=== PATIENT | female | born 1935 | race Caucasian/White ===

== ENCOUNTER → 2018-06-19 02:22 | Outpatient (CLI) | payer MEDICARE, MEDICAID, SELFPAY ==
[2018-06-19 11:31] LABS: Abs Immature Grans 0.01 k/cumm (0.0-0.09); HCT 35.3 % (36.0-46.0); HGB 12.3 g/dL (12.0-15.5); Mean Corp. HGB Concentration 34.8 g/dL (32.0-36.0); Mean Corpuscular Hemoglobin 36.9 pg (27.0-33.0); Mean Platelet Volume 11.1 fL (8.0-11.0); Platelet Count 545 x1000/uL (130-400); RBC 3.33 m/cumm (4.00-5.20); White Blood Cell Count 3.84 k/cumm (4.4-10.8)
[2018-06-19 11:45] LABS: ALT 27 U/L (12-78); AST 26 U/L (15-37); Alkaline Phosphatase 87 U/L (46-116); Anion Gap 10.6 mmol/L (3-11); BUN 21 mg/dL (7-18); Bilirubin, Total 0.4 mg/dL (0.2-1.0); CO2 24.4 mmol/L (21.0-32.0); Calcium 8.9 mg/dL (8.5-10.1); Chloride 96 mmol/L (98-107); Glucose 104 mg/dL (70-100); Potassium 4.6 mmol/L (3.5-5.1); Sodium 131 mmol/L (136-145)
[2018-06-19 11:53] LABS: Absolute Lymphocyte Count 1.11 k/cumm (1.2-3.4); Absolute Neutrophil Count 2.23 k/cumm (1.2-6.7)
[2018-06-19 11:54] LABS: Diff Comment Manual Differential; Macrocytosis 3+; Polychromasia Present
== END ==
PROVIDERS: Internal Medicine Hematology & Oncology; PCP Family Medicine; Visit Provider Family Medicine
DX: D47.1 Chronic myeloproliferative disease (principal); D47.3 Essential (hemorrhagic) thrombocythemia
CPT/HCPCS: 36415; 80053; 85025

== ENCOUNTER → 2018-06-26 00:12 | Outpatient (CLI) | payer MEDICARE, MEDICAID, SELFPAY ==
--- NOTE | 2018-06-26 05:44 | MERGEMPI_ITS ---
*[facility]* *[facility]* [address] [place] [address] Myocardial Perfusion Imaging - SPECT Joel protocol Date of study: 06/26/2018 *PATIENT PRESENTATION* Height: 160cm (63in) Blood Pressure: Weight: 69.1kg (152lb) BSA: 1.77m^2 Referring physician: Sherwin Vicente Ordering physician: Ryley Gaona Impressions: Normal perfusion by Tc99m Sestamibi Imaging. Summary: 1. Myocardial perfusion imaging: No myocardial perfusion defects noted. 2. The calculated left ventricular ejection fraction after stress: 67%. No left ventricular regional motion abnormality. 3. Stress: The target heart rate was achieved. Indication: R07.9. History: Patient's presenting symptoms: asymptomatic. REASON FOR VISIT: STRESS TEST RECOMMENDED BY PCP TO FURTHER INVESTIGATE PATIENT REPORTS OF CHEST PAIN AND SHORTNESS OF BREATH. EXERTIONAL DYSPNEA IS PRESENT WITH ANY ACTIVITY. 10/10 CRUSHING CHEST PAIN OCCURS WITH PROLONGED STANDING AND IS RELIEVED WITH REST. PAST MEDICAL HISTORY: CVA/TIA, HYPERTENSION, HYPOTHYROIDISM, AORTIC STENOSIS S/P AVR, MACULAR DEGENERATION, THROMBOCYTOSIS ON CHEMOTHERAPY. FAMILY HISTORY: NONE. SMOKING STATUS: PATIENT REPORTS OCCASIONAL CIGARETTE USE WITH DRINKING, QUIT 40 YEARS AGO. EXERCISE ROUTINE: NONE. Risk factors: Hypertension. Dyslipidemia. Cholesterol: 237mg/dl. HDL: 77mg/dl. LDL: 120mg/dl. Triglycerides: 130mg/dl. Cerebral vascular disease. ALLERGIES: IODINATED CONTRAST - ORAL AND IV DYE. MEDICATIONS: AMLODIPINE BESYLATE 2.5MG, DAILY. ASPIRIN 81MG, DAILY. CHOLECALCIFEROL 1000UNITS, DAILY CYANOCOBALAMIN 500MG, DAILY. HYDROXYUREA 1000MG, DAILY. LEVOTHYROXINE 125MCG, DAILY. LISINOPRIL 10MG, DAILY. MECLIZINE HCL 12.5MG, PRN. Imaging Technique: Protocol: Joel protocol. Acquisition: Gated SPECT; 1 day - rest/stress. The patient was imaged in the supine position. Attenuation correction used. Isotope administration: - Rest. Tc[99m]-sestamibi. Dose: 10.3mCi. Injection time: 08:10 AM. Injection to stress time: 00:45. - Stress. Tc[99m]-sestamibi. Dose: 33mCi. Injection time: 09:45 AM. 1-2 min before end of exercise Baseline ECG: SINUS RHYTHM. INVERTED T WAVES PRESENT AT BASELINE IN LEADS AVL, V1, AND V2. HEART RATE 66 BPM. Stress protocol: + +---+ + + !Stage !HR !BP (mmHg) !Symptoms ! + +---+ + + !Baseline supine !66 !144/78 ! ! ! ! !(100) ! ! + +---+ + + !Baseline standing !71 !154/72 (99)! ! + +---+ + + !Stage I; 1.7mph, 10degrees;!154!182/78 !Moderate dyspnea, ! !3 min ! !(113) !dizziness ! + +---+ + + !Peak stress !154! ! ! + +---+ + + !Immediate post stress !141!180/62 ! ! ! ! !(101) ! ! + +---+ + + !Recovery; 3 min !92 !180/74 !Resolved ! ! ! !(109) ! ! + +---+ + + !Recovery; 6 min !77 !164/68 ! ! ! ! !(100) ! ! + +---+ + + * Stress results: Maximal heart rate during stress was 154bpm (111% of maximal predicted heart rate). The maximal predicted heart rate was 139bpm. The target heart rate was achieved. The rate-pressure product for the peak heart rate and blood pressure was 64721lt Hg/min. Stress ECG: TREADMILL PORTION OF EXERCISE STRESS TEST ENDED IN 2MIN 51SEC DUE TO PATIENT REPORTS OF SHORTNESS OF BREATH AND DIZZINESS. APPROPRIATE HEART RATE AND BLOOD PRESSURE RESPONSE TO EXERCISE. MAX HEART RATE 154 BPM, 110% OF TARGET. APPROXIMATE METS ACHIEVED 4.64. NO ANGINA REPORTED. OCCASIONAL PVC NOTED. HORIZONAL ST SEGMENT DEPRESSION NOTED IN LEADS V3, V4, AND V5. ST SEGMENT CHANGES RETURNED TO BASELINE BY MINUTE 3 OF RECOVERY PERIOD. MILDLY DIMINISHED FUNCTIONAL CAPACITY. Myocardial perfusion: Imaging information: gated. No myocardial perfusion defects noted. Ventricular Function (Wall Motion): The calculated left ventricular ejection fraction after stress: 67%. No left ventricular regional motion abnormality. Study data: Krishna Miles MD supervised and was readily available during the procedure. This study was interpreted by [facility]. Study status: Routine. Consent: The risks, benefits, and alternatives to the procedure were explained to the patient and informed consent was obtained. Procedure: Initial setup. A baseline ECG was recorded. Surface ECG leads and manual cuff blood pressure measurements were monitored. Heart sounds: Normal. Lung sounds: Normal. Treadmill exercise testing was performed using the Joel protocol. Study completion: All catheters inserted during the procedure were removed. The patient tolerated the procedure well and was discharged from the lab. Discharge: The patient left the laboratory in stable condition. Birthdate: Patient birthdate: 1935. Sex: Gender: female. Study date: Study date: 06/26/2018. Study time: 05:44 AM. Electronically signed by Krishna Miles MD 06/26/2018 16:24
[2018-06-26 09:24] LABS: TSH 0.23 uIU/mL (0.358-3.74)
== END ==
PROVIDERS: PCP Family Medicine; Visit Provider Family Medicine
DX: R07.9 Chest pain, unspecified (principal); R06.02 Shortness of breath; R06.09 Other forms of dyspnea; E03.9 Hypothyroidism, unspecified; I10 Essential (primary) hypertension; E78.5 Hyperlipidemia, unspecified; Z95.2 Presence of prosthetic heart valve; I35.0 Nonrheumatic aortic (valve) stenosis
CPT/HCPCS: 78452; 93017; 36415; 93016; 93018; 84443

== ENCOUNTER 2018-07-11 02:00 | Outpatient (CLI) | payer MEDICARE, MEDICAID, SELFPAY ==
[2018-07-11 08:11] LABS: Absolute Basophil Count 0.05 k/cumm (0.0-0.2); Absolute Eosinophil Count 0.05 k/cumm (0.0-0.7); Absolute Lymphocyte Count 1.09 k/cumm (1.2-3.4); Absolute Monocyte Count 0.44 k/cumm (0.11-0.7); Absolute Neutrophil Count 2.42 k/cumm (1.2-6.7); Basophils % 1.2; Eosinophils % 1.2; HCT 33.4 % (36.0-46.0); HGB 11.4 g/dL (12.0-15.5); Lymphocytes % 26.9; Mean Corp. HGB Concentration 34.1 g/dL (32.0-36.0); Mean Corpuscular Hemoglobin 37.5 pg (27.0-33.0); Mean Corpuscular Volume 109.9 fL (80-95); Mean Platelet Volume 10.5 fL (8.0-11.0); Monocytes % 10.9; Neutrophils % 59.8; Platelet Count 619 x1000/uL (130-400); RBC 3.04 m/cumm (4.00-5.20); RBC Distribution Width 14.1 % (11.7-14.6); White Blood Cell Count 4.05 k/cumm (4.4-10.8)
[2018-07-11 08:27] LABS: ALT 23 U/L (12-78); AST 22 U/L (15-37); Albumin 3.8 g/dL (3.4-5.0); Alkaline Phosphatase 91 U/L (46-116); Anion Gap 7.8 mmol/L (3-11); BUN 21 mg/dL (7-18); Bilirubin, Total 0.3 mg/dL (0.2-1.0); CO2 27.2 mmol/L (21.0-32.0); CREATININE 0.77 mg/dL (0.55-1.02); Calcium 8.8 mg/dL (8.5-10.1); Chloride 96 mmol/L (98-107); Glucose 96 mg/dL (70-100); Potassium 4.2 mmol/L (3.5-5.1); Sodium 131 mmol/L (136-145)
== END 2018-07-11 02:20 ==
PROVIDERS: PCP Family Medicine; Visit Provider Family Medicine
DX: D47.1 Chronic myeloproliferative disease (principal); D47.3 Essential (hemorrhagic) thrombocythemia
CPT/HCPCS: 36415; 80053; 85025

== ENCOUNTER 2018-12-12 09:34 | Outpatient (CLI) | payer MEDICARE, MEDICAID, SELFPAY ==
[2018-12-12 09:51] LABS: Abs Immature Grans 0.01 k/cumm (0.0-0.09); Absolute Basophil Count 0.06 k/cumm (0.0-0.2); Absolute Eosinophil Count 0.11 k/cumm (0.0-0.7); Absolute Lymphocyte Count 1.08 k/cumm (1.2-3.4); Absolute Monocyte Count 0.45 k/cumm (0.11-0.7); Absolute Neutrophil Count 2.35 k/cumm (1.2-6.7); Basophils % 1.5; Eosinophils % 2.7; HCT 34.2 % (36.0-46.0); HGB 11.7 g/dL (12.0-15.5); Immature Grans % 0.2; Lymphocytes % 26.6; Mean Corp. HGB Concentration 34.2 g/dL (32.0-36.0); Mean Corpuscular Hemoglobin 37.5 pg (27.0-33.0); Mean Corpuscular Volume 109.6 fL (80-95); Monocytes % 11.1; Neutrophils % 57.9; Platelet Count 597 x1000/uL (130-400); RBC 3.12 m/cumm (4.00-5.20); RBC Distribution Width 13.6 % (11.7-14.6); White Blood Cell Count 4.06 k/cumm (4.4-10.8)
[2018-12-12 10:04] LABS: ALT 25 U/L (12-78); AST 24 U/L (15-37); Albumin 3.7 g/dL (3.4-5.0); Alkaline Phosphatase 101 U/L (46-116); Anion Gap 9.9 mmol/L (3-11); BUN 11 mg/dL (7-18); Bilirubin, Total 0.4 mg/dL (0.2-1.0); CO2 26.1 mmol/L (21.0-32.0); CREATININE 0.79 mg/dL (0.55-1.02); Calcium 8.7 mg/dL (8.5-10.1); Chloride 94 mmol/L (98-107); Glucose 97 mg/dL (70-100); Potassium 4.3 mmol/L (3.5-5.1); Sodium 130 mmol/L (136-145); Total Protein 6.9 g/dL (6.4-8.2)
== END 2018-12-12 09:54 ==
PROVIDERS: PCP Family Medicine; Visit Provider Nurse Practitioner Family
DX: D47.3 Essential (hemorrhagic) thrombocythemia (principal)
CPT/HCPCS: 36415; 80053; 85025

== ENCOUNTER 2019-05-15 09:15 | Outpatient (CLI) | payer MEDICARE, MEDICAID, SELFPAY ==
[2019-05-15 09:53] LABS: Abs Immature Grans 0.01 k/cumm (0.0-0.09); Absolute Basophil Count 0.07 k/cumm (0.0-0.2); Absolute Eosinophil Count 0.07 k/cumm (0.0-0.7); Absolute Monocyte Count 0.47 k/cumm (0.11-0.7); Absolute Neutrophil Count 2.85 k/cumm (1.2-6.7); Basophils % 1.6; Eosinophils % 1.6; HCT 33.8 % (36.0-46.0); HGB 11.9 g/dL (12.0-15.5); Immature Grans % 0.2; Lymphocytes % 22.4; Mean Corp. HGB Concentration 35.2 g/dL (32.0-36.0); Mean Corpuscular Hemoglobin 38.5 pg (27.0-33.0); Mean Corpuscular Volume 109.4 fL (80-95); Mean Platelet Volume 10.8 fL (8.0-11.0); Monocytes % 10.5; Neutrophils % 63.7; RBC 3.09 m/cumm (4.00-5.20); RBC Distribution Width 13.6 % (11.7-14.6); White Blood Cell Count 4.47 k/cumm (4.4-10.8)
[2019-05-15 10:02] LABS: ALT 25 U/L (12-78); AST 21 U/L (15-37); Alkaline Phosphatase 85 U/L (46-116); Anion Gap 10.7 mmol/L (3-11); BUN 13 mg/dL (7-18); Bilirubin, Total 0.4 mg/dL (0.2-1.0); CO2 25.3 mmol/L (21.0-32.0); CREATININE 0.68 mg/dL (0.55-1.02); Calcium 9.3 mg/dL (8.5-10.1); Chloride 96 mmol/L (98-107); Glucose 110 mg/dL (70-100); Potassium 4.3 mmol/L (3.5-5.1); Sodium 132 mmol/L (136-145); Total Protein 6.8 g/dL (6.4-8.2)
[2019-05-15 10:10] LABS: Diff Comment RBC Morph Reviewed; Macrocytosis 3+; Platelet Count 710 x1000/uL (130-400)
== END 2019-05-15 09:35 ==
PROVIDERS: PCP Family Medicine; Visit Provider Nurse Practitioner Family
DX: D47.3 Essential (hemorrhagic) thrombocythemia (principal); D47.1 Chronic myeloproliferative disease
CPT/HCPCS: 36415; 80053; 85025

== ENCOUNTER 2019-07-26 14:53 | Outpatient (CLI) | payer MEDICARE, MEDICAID, SELFPAY ==
[2019-07-26 15:25] LABS: Absolute Basophil Count 0.04 k/cumm (0.0-0.2); Absolute Eosinophil Count 0.03 k/cumm (0.0-0.7); Absolute Lymphocyte Count 0.93 k/cumm (1.2-3.4); Absolute Monocyte Count 0.47 k/cumm (0.11-0.7); Absolute Neutrophil Count 2.58 k/cumm (1.2-6.7); Eosinophils % 0.7; HCT 32.5 % (36.0-46.0); HGB 11.4 g/dL (12.0-15.5); Mean Corp. HGB Concentration 35.1 g/dL (32.0-36.0); Mean Corpuscular Hemoglobin 39.2 pg (27.0-33.0); Mean Corpuscular Volume 111.7 fL (80-95); Mean Platelet Volume 10.4 fL (8.0-11.0); Monocytes % 11.6; Neutrophils % 63.7; Platelet Count 670 x1000/uL (130-400); RBC 2.91 m/cumm (4.00-5.20); RBC Distribution Width 14.4 % (11.7-14.6); White Blood Cell Count 4.05 k/cumm (4.4-10.8)
[2019-07-26 15:45] LABS: Diff Comment RBC Morph Reviewed; Macrocytosis 3+
== END 2019-07-26 15:13 ==
PROVIDERS: PCP Family Medicine; Visit Provider Internal Medicine Hematology & Oncology
DX: D47.3 Essential (hemorrhagic) thrombocythemia (principal); D47.1 Chronic myeloproliferative disease
CPT/HCPCS: 85025

== ENCOUNTER 2019-08-15 09:51 | Outpatient (CLI) | payer MEDICARE, MEDICAID, SELFPAY ==
[2019-08-15 11:00] LABS: Abs Immature Grans 0.01 k/cumm (0.0-0.09); Absolute Basophil Count 0.02 k/cumm (0.0-0.2); Absolute Eosinophil Count 0.04 k/cumm (0.0-0.7); Absolute Lymphocyte Count 0.72 k/cumm (1.2-3.4); Absolute Monocyte Count 0.38 k/cumm (0.11-0.7); Absolute Neutrophil Count 2.26 k/cumm (1.2-6.7); Basophils % 0.6; Eosinophils % 1.2; HCT 30.9 % (36.0-46.0); HGB 10.9 g/dL (12.0-15.5); Immature Grans % 0.3; Mean Corp. HGB Concentration 35.3 g/dL (32.0-36.0); Mean Corpuscular Hemoglobin 40.1 pg (27.0-33.0); Mean Corpuscular Volume 113.6 fL (80-95); Mean Platelet Volume 10.2 fL (8.0-11.0); Monocytes % 11.1; Neutrophils % 65.8; RBC 2.72 m/cumm (4.00-5.20); RBC Distribution Width 13.7 % (11.7-14.6); White Blood Cell Count 3.43 k/cumm (4.4-10.8)
[2019-08-15 11:10] LABS: ALT 22 U/L (14-59); AST 25 U/L (15-37); Alkaline Phosphatase 86 U/L (46-116); Anion Gap 9.5 mmol/L (3-11); BUN 8 mg/dL (7-18); Bilirubin, Total 0.4 mg/dL (0.2-1.0); CO2 25.5 mmol/L (21.0-32.0); CREATININE 0.83 mg/dL (0.55-1.02); Chloride 93 mmol/L (98-107); Glucose 85 mg/dL (70-100); Potassium 4.2 mmol/L (3.5-5.1); Sodium 128 mmol/L (136-145); Total Protein 7.3 g/dL (6.4-8.2)
[2019-08-15 11:12] LABS: Platelet Count 657 x1000/uL (130-400)
[2019-08-15 11:13] LABS: Diff Comment Diff Reviewed; Macrocytosis 3+; Poikilocytes 1+
== END 2019-08-15 10:11 ==
PROVIDERS: Nurse Practitioner Family; PCP Family Medicine; Visit Provider Nurse Practitioner Adult Health
DX: D47.3 Essential (hemorrhagic) thrombocythemia (principal)
CPT/HCPCS: 36415; 80053; 85025

== ENCOUNTER 2019-08-16 12:38 | Emergency (ER) | payer MEDICARE, MEDICAID, SELFPAY ==
[2019-08-16] VITALS (21 sets, daily range): BP systolic 147–189; BP diastolic 63–88; PULSE 65–88; RESP 11–22; TEMP 36.9; O2SAT 95–100
--- NOTE | 2019-08-16 12:50 | DI.CT_ITS ---
EXAM: CT HEAD - STROKE PROTOCOL CLINICAL HISTORY: near syncope, headache, L face numb TECHNIQUE: Noncontrast COMPARISON: HEAD WITHOUT CONTRAST from 08/19/2017 FINDINGS: No intracranial hemorrhage, mass or acute infarct is seen. Ventricles are unchanged in size. There is mild atrophy and white matter changes of small vessel disease.. There is no evidence of skull fr acture. The sinuses and mastoid air cells appear clear. IMPRESSION: Atrophy and white matter changes. No acute abnormality.
--- NOTE | 2019-08-16 12:50 | DI.RAD_ITS ---
EXAM: XR CHEST 2V PA LATERAL INDICATION: near syncope. COMPARISON: CHEST 2 VIEWS PA,LAT from 01/11/2018 TECHNIQUE: 2D digital imaging was performed. FINDINGS: Heart size is normal. Sternal wires are again noted. Questionable increased densities at both lung bases could represent atelectasis versus infiltrates. An aortic valve prosthesis seen. IMPRESSION: Question basilar infiltrates versus atelectasis.
--- NOTE | 2019-08-16 12:55 | ED.GENADUL_ITS ---
Discharge Plan Disposition Patient Disposition: HOME Discharge Details Chief Complaint: CVA/TIA Clinical Impression: Near syncope, Dizziness, H/O thrombocytosis, Chronic hyponatremia Primary Care Provider: Ryley Gaona ED Provider: Torsten Modi Home Meds and New Rx's Prescriptions: No Action benzonatate 100 mg capsule 100 mg PO TID PRN (Reason: cough) Qty: 30 RF: 3 cyanocobalamin (vitamin B-12) [Vitamin B-12] 500 MCG tablet 500 mcg PO DAILY RF: 0 cholecalciferol (vitamin D3) 1,000 UNIT tablet 1,000 unit PO DAILY RF: 0 I-Caps 1 EACH capsule 1 ea PO DAILY RF: 0 triamcinolone acetonide 15 GM cream 0 Topical BID Qty: 30 RF: 3 meclizine 12.5 MG tablet 1 - 2 tab PO Q6H PRN Qty: 50 RF: 1 amlodipine 5 MG tablet 0.5 tab PO DAILY Qty: 90 RF: 3 mometasone [Nasonex] 17 GM spray,non-aerosol 2 spry NS DAILY Qty: 1 RF: 3 lisinopril 10 mg tablet 10 mg PO DAILY Qty: 90 RF: 4 nortriptyline 10 mg capsule 10 mg PO HS Qty: 30 RF: 3 hydroxyurea [Hydrea] 500 mg capsule 1,000 mg PO DAILY Qty: 180 RF: 3 codeine-guaifenesin [Cheratussin AC] 10-100 mg/5 mL liquid 5 ml PO Q6H PRN (Reason: cough) Qty: 118 RF: 0 levothyroxine 125 mcg tablet 125 mcg PO DAILY Qty: 90 RF: 4 aspirin [Aspir-81] 81 MG tablet,delayed release (DR/EC) 81 mg PO DAILY Qty: 100 RF: 0 Discharge Instructions Instructions: Hyponatremia (ED), Near Syncope (ED), Dizziness (ED) Additional Instructions: Your symptoms in the emergency department are concerning. As of right now it is unclear the origin of your symptoms prior to presenting to the emergency department. It was recommended that we admit you for further observation for which you have declined. You should return to the emergency department immediately should your symptoms return. Contact your primary care for follow- up. Referrals: Ryley Gaona MD [Primary Care Provider] - 1 day Discharge Data Discharge Date/Time-TO BE ENTERED AT DEPARTURE: 08/16/19 14:47 Medical Decision Making This is a non toxic 83-year-old female presenting to the emergency department with symptoms concerning for near syncope, lightheadedness and headache. She shows no outward signs of stroke at this time. Her vitals reflect a baseline hypertensive and at 150/70. She has no fever here. Her physical exam is unremarkable. Symptoms seem to have improved since her onset. Her work-up today shows a negative CAT scan. No pathology on chest x-ray. Labs demonstrate a baseline chronic hyponatremia. Known thrombocytosis on chemotherapy. EKG shows normal sinus rhythm with a negative troponin. I discussed admission for near syncope obs. Patient has refused admission at this time and signed out AMA. We discussed return precautions and the need to follow-up with her primary care provider. HPI General Date/Time Provider Initiated Documentation: 08/16/19 12:50 . HPI Narrative: Patient is an 83-year-old female with a significant history for thrombocytosis on chemotherapy who presents to the emergency department with abrupt onset of weakness, dizziness followed by a severe headache and left facial tingling. Patient states that her symptoms occurred around 1130 today. She continues to have her headache and is complaining of left-sided facial numbness. She denies any head trauma. No chest pain or palpitations. No fever or neck pain. She has a history of vertigo/dizzy spells for which she takes meclizine. She states that her dizzy spell today was somewhat similar but much more severe than her previous episodes. She states that she nearly passed out with her vision dimming down to a small tunnel. Related Data Home Medications Medication Instructions Recorded Confirmed antiox.mv no.[id number] 1 ea PO DAILY 01/03/13 08/16/19 [I-Caps With Lutein-[place] 3 Sfg] cholecalciferol (vitamin D3) 1,000 unit PO DAILY 01/03/13 08/16/19 cyanocobalamin (vitamin B-12) 500 mcg PO DAILY 01/03/13 08/16/19 [Vitamin B-12] triamcinolone acetonide 0 TOPICAL BID #30 g 04/06/16 08/08/18 meclizine 1 - 2 tab PO Q6H PRN #50 tab 05/05/17 08/16/19 aspirin [Aspir-81] 81 mg PO DAILY #100 tablet. 08/22/17 08/16/19 amlodipine 0.5 tab PO DAILY #90 tab-cap 05/19/18 08/16/19 mometasone [Nasonex] 2 spry NS DAILY #1 spray 06/23/18 08/16/19 benzonatate 100 mg capsule 100 mg PO TID PRN #30 cap 08/08/18 08/16/19 lisinopril 10 mg tablet 10 mg PO DAILY #90 tab 08/14/18 08/16/19 nortriptyline 10 mg capsule 10 mg PO HS #30 cap 11/29/18 08/16/19 hydroxyurea 500 mg capsule 1,000 mg PO DAILY #180 cap 12/11/18 08/16/19 codeine 10 mg-guaifenesin 100 mg/5 5 ml PO Q6H PRN #118 ml 12/22/18 08/16/19 mL oral liquid levothyroxine 125 mcg tablet 125 mcg PO DAILY #90 tab-cap NS 01/12/19 08/16/19 Previous Rx's Medication Instructions Recorded aspirin [Aspir-81] 81 mg PO DAILY #100 tablet. 08/22/17 amlodipine 0.5 tab PO DAILY #90 tab-cap 05/19/18 mometasone [Nasonex] 2 spry NS DAILY #1 spray 06/23/18 benzonatate 100 mg capsule 100 mg PO TID PRN #30 cap 08/08/18 lisinopril 10 mg tablet 10 mg PO DAILY #90 tab 08/14/18 nortriptyline 10 mg capsule 10 mg PO HS #30 cap 11/29/18 hydroxyurea 500 mg capsule 1,000 mg PO DAILY #180 cap 12/11/18 codeine 10 mg-guaifenesin 100 mg/5 5 ml PO Q6H PRN #118 ml 12/22/18 mL oral liquid levothyroxine 125 mcg tablet 125 mcg PO DAILY #90 tab-cap NS 01/12/19 Allergies Allergy/AdvReac Type Severity Reaction Status Date / Time Iodinated Contrast Media Allergy Intermediate Skin Rash Unverified 08/16/19 12:50 [Iodinated Contrast- Oral and IV Dye] General Stated Complaint: CVA/TIA ERIKA: 1 Review of Systems Constitutional Constitutional: Denies chills, Denies fatigue, Denies fever(s), Reports headache(s), Denies lethargy and Denies night sweats Eyes Eyes: Denies blurry vision, Denies floaters, Denies irritation, Denies loss of peripheral vision, Denies loss of vision and Denies eye pain ENT Ears, Nose, Mouth, and Throat: Denies vertigo, Reports dizziness, Reports headache(s), Denies nasal discharge, Denies neck pain, Denies sore throat and Denies throat swelling Cardiovascular Cardiovascular: Denies chest pain, Denies diaphoresis, Denies syncope, Denies pedal edema, Denies edema, Denies palpitations and Denies paroxysmal nocturnal dyspnea Musculoskeletal Musculoskeletal: Denies neck pain Neurologic Neurologic: Denies vertigo, Reports dizziness, Denies syncope, Reports headache(s) and Denies loss of vision Endocrine Endocrine: Denies fatigue and Denies palpitations Allergic/Immunologic Allergic/Immunologic: Denies throat swelling PFSH Surgical History Appendectomy (10/19/1952) LEFT HEART CARDIAC CATH Valve Replacement AORTIC Social History Smoking/Tobacco Use Status: Former Tobacco Use Drug use: Never Do you feel safe in your relationship?: Yes Exam Const General: cooperative, healthy appearing and no acute distress Orientation: alert, awake and oriented x3 HENMT Head: normal to inspection General nose exam: external nose normal Face and sinus: normal facial exam Mouth: oral mucosae normal Eyes General: appearance normal, both eyes and all related structures Pupils: PERRL EOM: EOM intact bilaterally Neck Neck: normal visual inspection and full ROM Chest Chest: normal inspection of the chest Breast inspection: normal inspection of the breasts Resp Effort & Inspection: normal respiratory effort Auscultation: clear to auscultation bilaterally Cardio Palpation: normal PMI Rate: regular rate Rhythm: regular rhythm Pulses: normal peripheral pulses GI Inspection: normal to inspection Palpation: soft Skin General skin exam: no rashes or lesions noted Neuro General: alert, awake and oriented x3 Cranial Nerves: CN's II-XI intact bilaterally Speech: speech normal Gait: normal gait Motor: muscle tone normal throughout Sensory Exam: no sensory deficits noted Course Vital Signs Vital signs: Vital Signs Temperature 36.9 C 08/16/19 12:45 Pulse 88 08/16/19 12:45 Respiratory Rate 16 08/16/19 12:45 Blood Pressure 189/68 H 08/16/19 12:45 Pulse Oximetry 100 08/16/19 12:45 Temperature 36.9 C 08/16/19 12:45 Temperature Source Skin 08/16/19 12:45 Pulse 88 08/16/19 12:45 Respiratory Rate 16 08/16/19 12:45 Respiratory Effort Non-Labored 08/16/19 12:45 Blood Pressure 189/68 H 08/16/19 12:45 Blood Pressure Position Supine 08/16/19 12:45 Pulse Oximetry 100 08/16/19 12:45 Oxygen Delivery Method Room Air 08/16/19 12:45 Oxygen Flow Rate 0 08/16/19 12:45
[2019-08-16 13:06] LABS: Abs Immature Grans 0.01 k/cumm (0.0-0.09); Absolute Basophil Count 0.05 k/cumm (0.0-0.2); Absolute Eosinophil Count 0.06 k/cumm (0.0-0.7); Absolute Lymphocyte Count 0.99 k/cumm (1.2-3.4); Absolute Monocyte Count 0.49 k/cumm (0.11-0.7); Absolute Neutrophil Count 2.87 k/cumm (1.2-6.7); Basophils % 1.1; Eosinophils % 1.3; HGB 11.4 g/dL (12.0-15.5); Immature Grans % 0.2; Lymphocytes % 22.1; Mean Corp. HGB Concentration 35.6 g/dL (32.0-36.0); Mean Corpuscular Hemoglobin 40.3 pg (27.0-33.0); Mean Corpuscular Volume 113.1 fL (80-95); Mean Platelet Volume 10.8 fL (8.0-11.0); Neutrophils % 64.3; RBC 2.83 m/cumm (4.00-5.20); RBC Distribution Width 13.6 % (11.7-14.6); White Blood Cell Count 4.47 k/cumm (4.4-10.8)
[2019-08-16 13:16] LABS: Prothrombin Time 10.1 sec (9.3-11.0)
[2019-08-16 13:21] LABS: Diff Comment Diff Reviewed; Macrocytosis 3+; Platelet Count 780 x1000/uL (130-400)
[2019-08-16 13:22] LABS: ALT 22 U/L (14-59); AST 35 U/L (15-37); Albumin 4.4 g/dL (3.4-5.0); Alkaline Phosphatase 93 U/L (46-116); Anion Gap 12.5 mmol/L (3-11); BUN 8 mg/dL (7-18); Bilirubin, Total 0.4 mg/dL (0.2-1.0); CO2 22.5 mmol/L (21.0-32.0); CREATININE 0.84 mg/dL (0.55-1.02); Calcium 9.3 mg/dL (8.5-10.1); Chloride 90 mmol/L (98-107); Glucose 105 mg/dL (70-100); Magnesium 1.9 mg/dL (1.8-2.4); Polychromasia Present; Potassium 4.3 mmol/L (3.5-5.1); Sodium 125 mmol/L (136-145); Total Protein 7.7 g/dL (6.4-8.2)
[2019-08-16 13:25] LABS: Troponin I < 0.05 ng/mL (0.00-0.06)
== END 2019-08-16 14:47 | disposition home or self-care (01) ==
PROVIDERS: Emergency Provider Physician Assistant; PCP Family Medicine
DX: R55 Syncope and collapse (principal); R42 Dizziness and giddiness; E87.1 Hypo-osmolality and hyponatremia; Z86.2 Personal history of diseases of the blood and blood-forming organs and certain disorders involving the immune mechanism; Z53.29 Procedure and treatment not carried out because of patient's decision for other reasons
CPT/HCPCS: 36416; 80053; 82962; 93005; 99284; 70450; 71046; 83735; 84484; 85025; 85610; 93010

== ENCOUNTER 2019-08-24 07:00 | Outpatient (CLI) | payer MEDICARE, MEDICAID, SELFPAY ==
[2019-08-24 13:05] LABS: Anion Gap 11.7 mmol/L (3-11); BUN 12 mg/dL (7-18); CO2 24.3 mmol/L (21.0-32.0); CREATININE 0.81 mg/dL (0.55-1.02); Calcium 9.4 mg/dL (8.5-10.1); Chloride 93 mmol/L (98-107); Glucose 109 mg/dL (70-100); Sodium 129 mmol/L (136-145)
== END 2019-08-24 07:20 ==
PROVIDERS: PCP Family Medicine; Visit Provider Family Medicine
DX: I10 Essential (primary) hypertension (principal)
CPT/HCPCS: 36415; 80048

== ENCOUNTER 2019-10-16 02:20 | Outpatient (CLI) | payer MEDICARE, MEDICAID, SELFPAY ==
--- NOTE | 2019-10-16 07:29 | DI.US_ITS ---
APPROVED REPORT EXAM: Comprehensive 2D, Doppler, and color-flow Echocardiogram Patient Location: Out-Patient National Coverage Specialist: Harleen Cordova RDCS (AE) Rhythm: NSR Indications: Dyspnea on exertion R06.09 Conclusion Left Ventricle : The left ventricle is normal size. The left ventricular systolic function is normal. The left ventricular ejection fraction is within the normal range. There is normal left ventricular wall thickness. There is normal LV segmental wall motion. Diastolic function is indeterminate but the re is evidence of elevated filling pressures. LVEF is estimated to be 60-65%. Right Ventricle : The right ventricle is normal size. The right ventricular systolic function appears normal. Atria : The left atrium size is normal. The right atrium size is normal. Aortic Valve : A bioprosthesis aortic valve is present and functioning normally. No aortic regurgitat ion is present. Mild to moderate aortic stenosis (Mean gradient 18mmHg). Mitral Valve : Mitral valve leaflets are moderately thickened. Mild to moderate mitral regurgitation. No evidence of mitral valve stenosis. Great Vessels : The ascending aorta is mildly dilated. IVC is normal in size and collapses >50% with inspiration. Estimated RVSP is 47-50 mmHg. Compared to prior echocardiogram dated 07/17/2019: There is no significant change of valve function bu t the estimated pulmonary pressures have increased from 35 to 50 mmHg. Wall motion Left Ventricle The left ventricle is normal size. The left ventricular systolic function is normal. The left ventric ular ejection fraction is within the normal range. There is normal left ventricular wall thickness. T here is normal LV segmental wall motion. Diastolic function is indeterminate but there is evidence of elevated filling pressures. LVEF is estimated to be 60-65%. Right Ventricle The right ventricle is normal size. The right ventricular systolic function appears normal. Atria The left atrium size is normal. The right atrium size is normal. Aortic Valve A bioprosthesis aortic valve is present and functioning normally. Mild to moderate aortic stenosis (M ravinder gradient 18mmHg). No aortic regurgitation is present. Mitral Valve Mitral valve leaflets are moderately thickened. No evidence of mitral valve stenosis. Mild to moderat e mitral regurgitation. Tricuspid Valve Tricuspid valve leaflets are thickened but open well. Moderate to severe tricuspid regurgitation. Pulmonic Valve Pulmonic valve is not well visualized. Mild pulmonic regurgitation. Great Vessels The aortic root is normal in size. The ascending aorta is mildly dilated. IVC is normal in size and c ollapses >50% with inspiration. Estimated RVSP is 47-50 mmHg. Pericardium There is no pericardial effusion. 2D Dimensions IVSd 1.00 cm F: 0.6-1.0 LV EDV A2C 88.40 mL PWd 0.95 cm F: 0.6 - 1.0 LV EDV A4C 66.80 mL LVDd 5.05 cm F: 3.8 - 5.2 LA Volume Index A2C 30.75 mL/m2 LVDs 3.35 cm F: 2.2 - 3.5 LA Volume Index A4C 30.64 mL/m2 Aortic Root 3.10 cm F: 2.7 - 3.3 LA Volume Index Biplane 31.65 mL/m2 RVID Base (AP4) 3.20 cm (M/F) 2.5-4.1 LA Area A4C 18.49 cm2 RA Area A4C 14.02 cm2 LA Area A2C 17.96 cm2 LVOT 1.80 cm (M/F) 1.5-2.5 EF AP4 60.48 % Ascending Aorta 3.62 cm F: 2.3 - 3.1 EF AP2 59.62 % LVEF (Teich) 61.61 % EF BP 60.27 % LVEF (Denney's) 60.27 % F: 54 - 74 LV Volume 63.73 mL F: 46 - 106 LV Volume Index 36.83 mL/m2 F: 29 - 61 FS 33.25 % LV Diastology E/A Ratio 0.8 MED E' 0.08 (>0.07 m/s) LV E/e MED 12.80 (<14) LAT E' 0.08 (>0.1 m/s) LV E/e LAT 12.90 (<14) Pulm Vein s 0.76 m/s PV S/D Ratio 1.37 Pulm Vein d 0.56 m/s Pulm Vein a 0.65 m/s A-A Duration 176.81 msec Aortic Valve LVOT Area 2.58 cm2 LVOT Peak Dariel. 1.35 m/s LVOT Mean Dariel. 0.98 m/s LVOT Peak Gr. 7.35 mmHg BELL Vmax Index 0.70 cm2/m2 LVOT Mean Gr. 4.20 mmHg LVOT VTI 0.30 m BELL Mean Dariel. Index 0.73 cm2/m2 AoV Peak Dariel. 2.88 (0.5-1.3 m/s) AoV Mean Dariel. 2.01 m/s AO Peak GR. 33.28 mmHg AO Mean GR. 17.99 (<5 mmHg) AO VTI 0.67 (0.18-0.25 m) BELL (VTI) 0.71 (2.5-4.5 cm2) BELL (VTI) Index 0.71 cm/m2 Mitral Valve MV E Max Dariel. 1.00 (0.4-1.3 m/s) MVA VTI 5.41 (4.0-6.0 cm2) MV A Velocity 1.20 (0.4-1.3 m/s) E/A Ratio 0.80 MV Decel. Time 296.20 (160-240 msec) MV PHT 85.90 msec MVA PHT 2.55 cm2 Tricuspid Valve TR P. Velocity 3.44 m/s TV Regurg Vmax 3.44 m/s RAP Estimate 3.00 mmHg RVSP 50.00 mmHg TR P. Gradient 47.25 mmHg
== END 2019-10-16 02:40 ==
PROVIDERS: PCP Family Medicine; Visit Provider Family Medicine
DX: R06.09 Other forms of dyspnea (principal); I35.0 Nonrheumatic aortic (valve) stenosis; Z95.2 Presence of prosthetic heart valve; I10 Essential (primary) hypertension; E78.5 Hyperlipidemia, unspecified
CPT/HCPCS: 93306

== ENCOUNTER 2019-11-06 10:59 | Outpatient (CLI) | payer MEDICARE, MEDICAID, SELFPAY ==
[2019-11-06 10:37] LABS: Anion Gap 9.9 mmol/L (3-11); BUN 14 mg/dL (7-18); CO2 27.1 mmol/L (21.0-32.0); CREATININE 0.81 mg/dL (0.55-1.02); Calcium 9.2 mg/dL (8.5-10.1); Chloride 96 mmol/L (98-107); Glucose 108 mg/dL (74-106); Sodium 133 mmol/L (136-145)
== END 2019-11-06 11:19 ==
PROVIDERS: PCP Family Medicine; Visit Provider Family Medicine
DX: E87.1 Hypo-osmolality and hyponatremia (principal)
CPT/HCPCS: 36415; 80048

== ENCOUNTER 2020-04-12 09:42 | Emergency (ER) | payer MEDICARE, MEDICAID, SELFPAY ==
[2020-04-12] VITALS (52 sets, daily range): BP systolic 103–164; BP diastolic 50–101; PULSE 61–97; RESP 10–25; TEMP 36.6–36.8; O2SAT 97–100
[2020-04-12 10:01] LABS: Absolute Basophil Count 0.04 k/cumm (0.0-0.2); Absolute Eosinophil Count 0.03 k/cumm (0.0-0.7); Absolute Lymphocyte Count 0.63 k/cumm (1.2-3.4); Absolute Monocyte Count 0.24 k/cumm (0.11-0.7); Absolute Neutrophil Count 2.02 k/cumm (1.2-6.7); Basophils % 1.4; HCT 30.9 % (36.0-46.0); Lymphocytes % 21.3; Mean Corp. HGB Concentration 35.6 g/dL (32.0-36.0); Mean Corpuscular Hemoglobin 42.6 pg (27.0-33.0); Mean Corpuscular Volume 119.8 fL (80-95); Mean Platelet Volume 10.2 fL (8.0-11.0); Monocytes % 8.1; Neutrophils % 68.2; RBC 2.58 m/cumm (4.00-5.20); RBC Distribution Width 12.4 % (11.7-14.6); White Blood Cell Count 2.96 k/cumm (4.4-10.8)
[2020-04-12 10:17] LABS: Diff Comment Diff Reviewed; Macrocytosis 2+; Platelet Count 719 x1000/uL (130-400); Troponin I < 0.05 ng/mL (<0.06)
[2020-04-12 10:18] LABS: Poikilocytes 1+
[2020-04-12 10:22] LABS: ALT 28 U/L (14-59); AST 26 U/L (15-37); Albumin 3.9 g/dL (3.4-5.0); Alkaline Phosphatase 83 U/L (46-116); Anion Gap 10.9 mmol/L (3-11); BUN 11 mg/dL (7-18); Bilirubin, Total 0.4 mg/dL (0.2-1.0); CO2 25.1 mmol/L (21.0-32.0); CREATININE 1.05 mg/dL (0.55-1.02); Chloride 96 mmol/L (98-107); Estimated GFR 50.05 (mL/min/1.73m2); Glucose 135 mg/dL (74-106); Sodium 132 mmol/L (136-145); Total Protein 6.7 g/dL (6.4-8.2)
--- NOTE | 2020-04-12 10:30 | DI.CT_ITS ---
EXAM: CT HEAD WO CLINICAL HISTORY: posterior headaches, dizziness, r/o acute process. TECHNIQUE: Imaging Protocol: Axial computed tomography images with coronal and sagittal reformatted images were created and reviewed COMPARISON: CT CT HEAD - STROKE PROTOCOL from 08/16/2019 FINDINGS: Ventricles and Extra axial spaces: Normal in size and morphology for the patient's age. Hemorrhage: None. Cerebral parenchyma: Atrophy. White matter changes consistent with small vessel disease. Midline shift: None. Brainstem/Cerebellum: Normal. Calvarium: Normal. Visualized Paranasal sinuses/Mastoids: Clear. IMPRESSION: No acute abnormality. RADIATION DOSE DELIVERED: 782.98mGy.cm Total DLP 782.98mGy.cm Total DLP 782.98mGy.cm Total DLP DATA REPOSITORY: All CT scans at this facility are submitted to the National Radiology Data Registry (NRDR) Dose Index Registry (DIR) with the [employer] (ACR). RADIATION OPTIMIZATION: All CT scans at this facility use at least one of these dose optimization te chniques: automated exposure control; mA and/or kV adjustment per patient size (includes targeted exa ms where dose is matched to clinical indication); or iterative reconstruction.
--- NOTE | 2020-04-12 10:30 | DI.RAD_ITS ---
EXAM: XR CHEST 2V PA LATERAL CLINICAL HISTORY: dizziness, r/o acute disease TECHNIQUE: 2D digital imaging was performed. COMPARISON: CR XR CHEST 2V PA LATERAL from 08/16/2019 FINDINGS: HEART: Normal size. Valve prosthesis. Calcified aorta. PULMONARY VASCULATURE: Normal. LUNGS: Mild scarring bilaterally at the lung bases. PLEURAL SPACE: No pleural effusion or pneumothorax. BONE:Degenerative changes in the shoulders and spine. OTHER FINDINGS:sternal wires. IMPRESSION: No acute pulmonary findings. DATA REPOSITORY: RADIATION DOSE DELIVERED:
[2020-04-12] MEDS: Normal Saline 500 ML IV (11:04)
[2020-04-12] MEDS: ACETAMINOPHEN 1,000 MG/100 ML BTL 400 MG IVPB (11:06)
[2020-04-12] MEDS: Meclizine 25 MG TAB PO (11:08)
--- NOTE | 2020-04-12 11:16 | DI.VRAD_ITS ---
PROCEDURE INFORMATION: Exam: CT Head Without Contrast Exam date and time: 04/12/2020 10:33 AM Age: 84 years old Clinical indication: Other: Posterior headache, dizziness, R/O acute process TECHNIQUE: Imaging protocol: Computed tomography of the head without contrast. COMPARISON: CT HEAD - STROKE PROTOCOL 08/16/2019 12:58 PM FINDINGS: Brain: No acute intracranial hemorrhage. There is mild diffuse heterogeneity of the white matter attenuation, consistent with chronic white matter ischemic changes. Mild cerebral atrophy Ventricles: Normal. No ventriculomegaly. Bones/joints: Degenerative changes in the temporomandibular joints No acute fracture. Sinuses: Visualized sinuses are unremarkable. No fluid levels. Mastoid air cells: Visualized mastoid air cells are well aerated. Soft tissues: Unremarkable. IMPRESSION: No acute intracranial hemorrhage. Dictated and Authenticated by: Antonina Reyes MD. Ordering:JOVNAI Nava MD
--- NOTE | 2020-04-12 11:19 | DI.VRAD_ITS ---
PROCEDURE INFORMATION: Exam: XR Chest, 2 Views Exam date and time: 04/12/2020 10:58 AM Age: 84 years old Clinical indication: Other: Dizziness, R/O acute disease TECHNIQUE: Imaging protocol: XR of the chest Views: 2 views. COMPARISON: CR XR CHEST 2V PA LATERAL 08/16/2019 1:06 PM FINDINGS: Lungs: No focal consolidation Pleural space: Unremarkable. No pleural effusion. No pneumothorax. Heart/Mediastinum: Status post cardiac valve replacement Bones/joints: Median sternotomy Degenerative changes in the glenohumeral joints IMPRESSION: No focal consolidation Dictated and Authenticated by: Antonina Reyes MD. Ordering:JOVANI Nava MD
--- NOTE | 2020-04-12 11:34 | W.ED.GENAD ---
Discharge Plan Disposition Patient Disposition: HOME Condition: Improving Discharge Details Chief Complaint: Dizzy/Sync Clinical Impression: Dizziness Primary Care Provider: Ryley Gaona ED Provider: Brandy Goins Home Meds and New Rx's Prescriptions: Continued hydroxyurea [Hydrea] 500 mg capsule See Rx Instructions PO .COMPLEX Qty: 90 RF: 3 cyanocobalamin (vitamin B-12) [Vitamin B-12] 500 MCG tablet 500 mcg PO DAILY RF: 0 cholecalciferol (vitamin D3) 1,000 UNIT tablet 1,000 unit PO DAILY RF: 0 I-Caps 1 EACH capsule 1 ea PO DAILY RF: 0 triamcinolone acetonide 15 GM cream 15 % Topical BID Qty: 30 RF: 3 amlodipine 5 mg tablet 2.5 mg PO DAILY Qty: 90 RF: 3 lisinopril 10 mg tablet 10 mg PO DAILY Qty: 90 RF: 4 levothyroxine 125 mcg tablet 125 mcg PO DAILY Qty: 90 RF: 4 aspirin [Aspir-81] 81 MG tablet,delayed release (DR/EC) 81 mg PO DAILY Qty: 100 RF: 0 Changed meclizine 12.5 MG tablet 12.5 mg PO Q6H PRN (Reason: dizziness) Qty: 20 RF: 1 Discharge Instructions Instructions: Dizziness (ED) Additional Instructions: Drink plenty of fluids and get plenty of rest. Take Tylenol as needed and directed for pain. Call the primary care doctor's office on Tuesday to schedule follow-up appointment for reevaluation of your frequent dizzy episodes, medication management and for referral for outpatient equipment monitor phototypesetting if indicated. Your thyroid-stimulating hormone or TSH level is low indicating that your thyroid medication levothyroxine may need to be adjusted. Care management will follow-up with you regarding home health and whether this would be indicated for you. A walker or cane may be helpful for you while walking. Return to the emergency department if you develop any worsening or concerning symptoms. Discharge Data Discharge Physician: Brandy Goins Medical Decision Making [id number] -- 84-year-old female with a history of thrombocytosis, dementia, hyperlipidemia who presents for frequent episodes of dizziness for the past year, 1 occurring today while in the shower. Patient takes amlodipine, metoprolol and hydroxyurea all of which can cause headaches or dizziness. She states she mainly sits around at home and does not get up and walk. She states she did not eat or drink much yesterday. BP hypertensive. She appears afebrile and nontoxic. No focal deficits. Lungs clear. Differential diagnosis includes dehydration, vertigo, medication induced dizziness or headaches, CVA, ACS, electrolyte abnormality, arrhythmia. Will place an IV, bolus IV fluids, meclizine, IV Tylenol, screening labs, urinalysis, CT head and chest x-ray and reassess. EKG notes a rate of 78, sinus with no acute ST ischemic changes. 1330 --labs and imaging reviewed. White blood cell count 2.96, hemoglobin 11, platelet 719, which are near her baseline. Troponin negative. Urinalysis initially noted contamination but a straight cath was performed and it is negative for acute infection. Chest x-ray and CT head negative for acute process. Patient ambulated around the ED in no acute distress and denies any dizziness. Case discussed with her daughter. An order was placed for home health to assess home safety and ADLs. Patient was offered a walker but daughter states she has this at home. Advised to follow-up with the PCP for reevaluation, to discuss her medications and whether this may be attributing to her dizziness, and for consideration for outpatient equipment monitor phototypesetting. Medical Records Medical records reviewed: Yes I reviewed the patient's medical records. Imaging Data Radiologic Study: Radiologist's impression: XR Chest, 2 Views Exam date and time: 04/12/2020 10:58 AM Age: 84 years old Clinical indication: Other: Dizziness, R/O acute disease TECHNIQUE: Imaging protocol: XR of the chest Views: 2 views. COMPARISON: CR XR CHEST 2V PA LATERAL 08/16/2019 1:06 PM FINDINGS: Lungs: No focal consolidation Pleural space: Unremarkable. No pleural effusion. No pneumothorax. Heart/Mediastinum: Status post cardiac valve replacement Bones/joints: Median sternotomy Degenerative changes in the glenohumeral joints IMPRESSION: No focal consolidation. CT Head Without Contrast Exam date and time: 04/12/2020 10:33 AM Age: 84 years old Clinical indication: Other: Posterior headache, dizziness, R/O acute process TECHNIQUE: Imaging protocol: Computed tomography of the head without contrast. COMPARISON: CT HEAD - STROKE PROTOCOL 08/16/2019 12:58 PM FINDINGS: Brain: No acute intracranial hemorrhage. There is mild diffuse heterogeneity of the white matter attenuation, consistent with chronic white matter ischemic changes. Mild cerebral atrophy Ventricles: Normal. No ventriculomegaly. Bones/joints: Degenerative changes in the temporomandibular joints No acute fracture. Sinuses: Visualized sinuses are unremarkable. No fluid levels. Mastoid air cells: Visualized mastoid air cells are well aerated. Soft tissues: Unremarkable. IMPRESSION: No acute intracranial hemorrhage. Lab Data Lab results reviewed: Yes I reviewed the patient's lab results. Labs: Laboratory Tests Range/Units 04/12/20 04/12/20 04/12/20 09:54 09:54 09:54 WBC (4.4-10.8) k/cumm 2.96 L RBC (4.00-5.20) m/cumm 2.58 L Hgb (12.0-15.5) g/dL 11.0 L Hct (36.0-46.0) % 30.9 L MCV (80-95) fL 119.8 H MCH (27.0-33.0) pg 42.6 H MCHC (32.0-36.0) g/dL 35.6 RDW (11.7-14.6) % 12.4 Plt Count (130-400) x1000/uL 719 H MPV (8.0-11.0) fL 10.2 Immature Gran % % 0.0 Neutrophils % 68.2 Lymphocytes % 21.3 Monocytes % 8.1 Eosinophils % 1.0 Basophils % 1.4 Absolute Neutrophils (1.2-6.7) k/cumm 2.02 Absolute Lymphocytes (1.2-3.4) k/cumm 0.63 L Absolute Monocytes (0.11-0.7) k/cumm 0.24 Absolute Eosinophils (0.0-0.7) k/cumm 0.03 Absolute Basophils (0.0-0.2) k/cumm 0.04 Differential Comment Diff reviewed RBC Morphology See below Poikilocytosis 1+ Macrocytosis 2+ Sodium (136-145) mmol/L 132 L Potassium (3.5-5.1) mmol/L 4.0 Chloride (98-107) mmol/L 96 L Carbon Dioxide (21.0-32.0) mmol/L 25.1 Anion Gap (3-11) mmol/L 10.9 BUN (7-18) mg/dL 11 Creatinine (0.55-1.02) mg/dL 1.05 H Estimated GFR/1.73 m2 (mL/min/1.73m2) 50.05 Glucose (74-106) mg/dL 135 H Calcium (8.5-10.1) mg/dL 9.0 Magnesium (1.8-2.4) mg/dL 2.0 Total Bilirubin (0.2-1.0) mg/dL 0.4 AST (15-37) U/L 26 ALT (14-59) U/L 28 Alkaline Phosphatase (46-116) U/L 83 Troponin I (<0.06) ng/mL < 0.05 Total Protein (6.4-8.2) g/dL 6.7 Albumin (3.4-5.0) g/dL 3.9 TSH (0.36-3.74) uIU/mL Free T4 (0.76-1.46) ng/dL Urine Color (Yellow) Urine Clarity (Clear) Urine pH (5-8) Ur Specific [place] (1.005-1.025) Urine Protein (Negative) mg/dL Urine Ketones (Negative) mg/dL Urine Blood (Negative) Urine Nitrite (Negative) Urine Bilirubin (Negative) Urine Urobilinogen (Up TO 0.2) EU/dL Ur Leukocyte Esterase (Negative) Urine RBC (0-2) HPF Urine WBC (0-5) HPF Ur Epithelial Cells (Negative) HPF Urine Crystals (Negative) HPF Urine Bacteria (Negative) HPF Urine Casts (Negative) LPF Urine Mucus (Negative) Urine Other (Negative) Ur Culture Indicated? Urine Glucose (Negative) mg/dL Range/Units 04/12/20 04/12/20 04/12/20 12:26 12:55 13:19 WBC (4.4-10.8) k/cumm RBC (4.00-5.20) m/cumm Hgb (12.0-15.5) g/dL Hct (36.0-46.0) % MCV (80-95) fL MCH (27.0-33.0) pg MCHC (32.0-36.0) g/dL RDW (11.7-14.6) % Plt Count (130-400) x1000/uL MPV (8.0-11.0) fL Immature Gran % % Neutrophils % Lymphocytes % Monocytes % Eosinophils % Basophils % Absolute Neutrophils (1.2-6.7) k/cumm Absolute Lymphocytes (1.2-3.4) k/cumm Absolute Monocytes (0.11-0.7) k/cumm Absolute Eosinophils (0.0-0.7) k/cumm Absolute Basophils (0.0-0.2) k/cumm Differential Comment RBC Morphology Poikilocytosis Macrocytosis Sodium (136-145) mmol/L Potassium (3.5-5.1) mmol/L Chloride (98-107) mmol/L Carbon Dioxide (21.0-32.0) mmol/L Anion Gap (3-11) mmol/L BUN (7-18) mg/dL Creatinine (0.55-1.02) mg/dL Estimated GFR/1.73 m2 (mL/min/1.73m2) Glucose (74-106) mg/dL Calcium (8.5-10.1) mg/dL Magnesium (1.8-2.4) mg/dL Total Bilirubin (0.2-1.0) mg/dL AST (15-37) U/L ALT (14-59) U/L Alkaline Phosphatase (46-116) U/L Troponin I (<0.06) ng/mL Total Protein (6.4-8.2) g/dL Albumin (3.4-5.0) g/dL TSH (0.36-3.74) uIU/mL 0.06 L Free T4 (0.76-1.46) ng/dL 1.45 Urine Color (Yellow) Yellow Yellow Urine Clarity (Clear) Sl cloudy Sl cloudy Urine pH (5-8) 7.0 7.0 Ur Specific [place] (1.005-1.025) 1.020 1.015 Urine Protein (Negative) mg/dL Negative Negative Urine Ketones (Negative) mg/dL Trace H 15 H Urine Blood (Negative) Negative Negative Urine Nitrite (Negative) Negative Negative Urine Bilirubin (Negative) Negative Negative Urine Urobilinogen (Up TO 0.2) EU/dL 0.2 0.2 Ur Leukocyte Esterase (Negative) Moderate H Negative Urine RBC (0-2) HPF 0-2 Urine WBC (0-5) HPF >50 H Ur Epithelial Cells (Negative) HPF Moderate Urine Crystals (Negative) HPF Negative Urine Bacteria (Negative) HPF Moderate Urine Casts (Negative) LPF Negative Urine Mucus (Negative) Negative Urine Other (Negative) Negative Ur Culture Indicated? No/sq. contamination Urine Glucose (Negative) mg/dL Negative Negative ECG Data Attestation: I personally reviewed and interpreted this ECG (s) as follows: Interpretation: Rate of 78, sinus, no acute ST elevation or depression. TX 154. QTc 39. QRS 82. HPI General Mode of arrival: ambulatory. Date/Time Provider Initiated Documentation: 04/12/20 09:55. Limitations to Documentation: no limitations. Information obtained by: patient. HPI Narrative: Patient is an 84-year-old female with a history of hypertension, hyperlipidemia, thrombocytosis on hydroxyurea presents for frequent episodes of dizziness for the past several years. She states she was showering today when she felt that she was going to pass out and called out to her daughter who helped her sit down. She denies any injury. She states the dizziness feels like a spinning sensation. She does admit to frequent posterior headaches which she states is currently present. She denies known recent fever, chest pain, shortness of breath, abdominal pain, nausea, vomiting, diarrhea or urinary symptoms. She states the dizziness is worse with movement. Related Data Home Medications Medication Instructions Recorded Confirmed I-Caps 1 ea PO DAILY 01/03/13 04/12/20 cholecalciferol (vitamin D3) 1,000 unit PO DAILY 01/03/13 04/12/20 cyanocobalamin (vitamin B-12) 500 mcg PO DAILY 01/03/13 04/12/20 [Vitamin B-12] triamcinolone acetonide 15 % TOPICAL BID #30 g 04/06/16 09/25/19 aspirin [Aspir-81] 81 mg PO DAILY #100 tablet. 08/22/17 04/12/20 hydroxyurea 500 mg capsule See Rx Instructions PO .COMPLEX 08/24/19 04/12/20 #90 cap amlodipine 5 mg tablet 2.5 mg PO DAILY #90 tab-cap 08/28/19 04/12/20 lisinopril 10 mg tablet 10 mg PO DAILY #90 tab 10/26/19 04/12/20 levothyroxine 125 mcg tablet 125 mcg PO DAILY #90 tab-cap NS 04/10/20 04/12/20 meclizine 12.5 mg PO Q6H PRN #20 tab 04/12/20 Previous Rx's Medication Instructions Recorded aspirin [Aspir-81] 81 mg PO DAILY #100 tablet. 08/22/17 hydroxyurea 500 mg capsule See Rx Instructions PO .COMPLEX 08/24/19 #90 cap amlodipine 5 mg tablet 2.5 mg PO DAILY #90 tab-cap 08/28/19 lisinopril 10 mg tablet 10 mg PO DAILY #90 tab 10/26/19 levothyroxine 125 mcg tablet 125 mcg PO DAILY #90 tab-cap NS 04/10/20 meclizine 12.5 mg PO Q6H PRN #20 tab 04/12/20 Allergies Allergy/AdvReac Type Severity Reaction Status Date / Time Iodinated Contrast Media Allergy Intermediate Skin Rash Unverified 04/12/20 09:45 [Iodinated Contrast- Oral and IV Dye] General Stated Complaint: Dizzy/Sync ERIKA: 3 Review of Systems All systems reviewed & are unremarkable except as noted in HPI and below Constitutional Constitutional: Reports as per HPI, Denies chills, Denies fever(s) and Reports headache(s) Eyes Eyes: Denies blurry vision ENT Ears, Nose, Mouth, and Throat: Reports dizziness, Reports headache(s), Denies sore throat and Denies throat swelling Cardiovascular Cardiovascular: Denies chest pain and Denies dyspnea Respiratory Respiratory: Denies cough and Denies dyspnea Gastrointestinal Gastrointestinal: Denies abdominal pain, Denies diarrhea and Denies vomiting Genitourinary Genitourinary: Denies hematuria and Denies dysuria Musculoskeletal Musculoskeletal: Denies back pain and Denies numbness Integumentary/Breasts Skin/Breast: Denies lesions and Denies rash Neurologic Neurologic: Reports dizziness, Reports headache(s), Denies localized weakness and Denies numbness Allergic/Immunologic Allergic/Immunologic: Denies throat swelling [facility] Medical History (Updated 04/12/20 @ 14:49 by Brandy Goins DO) Chronic diastolic heart failure (Inactive 05/18/17) Dementia, Alzheimer's, with behavior disturbance (Inactive) Essential hypertension (Inactive 09/12/13) History of left heart catheterization (Inactive) History of tobacco use (Inactive) Hyperlipidemia (Inactive 01/03/13) Hyponatremia (Inactive 02/13/18) Hypothyroidism (acquired) (Inactive 01/03/13) Primary thrombocytosis (Inactive 10/11/17) Restless leg syndrome (Inactive) Rheumatic aortic stenosis (Inactive) Surgical History (Updated 08/24/19 @ 11:02 by Ryley Gaona MD) Appendectomy (10/19/1951) History of aortic valve replacement (Inactive) LEFT HEART CARDIAC CATH Valve Replacement [facility] Social History Smoking/Tobacco Use Status: Former Tobacco Use Alcohol Intake: never Drug use: Never Do you feel safe at home: Yes Do you feel safe in your relationship?: Yes Exam Const General: cooperative and no acute distress Orientation: alert, awake and oriented x3 HENMT Head: normal to inspection Face and sinus: normal facial exam Eyes General: appearance normal, both eyes and all related structures Pupils: PERRL EOM: EOM intact bilaterally Neck Neck: normal visual inspection and No submandibular swelling Lymphatic: no lymphadenopathy noted Chest Chest: normal inspection of the chest and no tenderness Resp Effort & Inspection: normal respiratory effort and able to speak in complete sentences Auscultation: clear to auscultation bilaterally Cardio Rate: regular rate Rhythm: regular rhythm GI Inspection: normal to inspection Palpation: soft, not firm, not rigid and nontender Auscultation: normal bowel sounds Skin General skin exam: no rashes or lesions noted Neuro General: patient alert, patient awake, patient oriented x3 and moves all extremities Cranial Nerves: CN's II-XI intact bilaterally Cognition: normal cognition Speech: speech normal Motor: muscle tone normal throughout and strength 5/5 throughout Sensory Exam: no sensory deficits noted Extrem General: normal to inspection, full ROM, capillary refill normal, no calf tenderness bilaterally and no edema Psych Appearance: grossly normal Mental Status: mental status grossly normal Speech and Movement: speech and movement normal Affect: normal affect Course Vital Signs Vital signs: Vital Signs Temperature 97.9 F 04/12/20 09:41 Pulse 80 04/12/20 09:41 Respiratory Rate 16 04/12/20 09:41 Blood Pressure 147/79 H 04/12/20 09:41 Pulse Oximetry 97 04/12/20 09:41 Temperature 97.9 F 04/12/20 09:41 Temperature Source Tympanic 04/12/20 09:41 Pulse 63 04/12/20 11:16 Pulse 63 04/12/20 11:16 Respiratory Rate 11 L 04/12/20 11:16 Respiratory Effort Non-Labored 04/12/20 10:04 Respiratory Depth Normal 04/12/20 10:04 Respiratory Pattern Normal 04/12/20 10:04 Blood Pressure 154/59 H 04/12/20 11:16 Blood Pressure Mean 83 04/12/20 11:16 Blood Pressure Position Sitting 04/12/20 09:41 Pulse Oximetry 100 04/12/20 11:16 Oxygen Delivery Method Room Air 04/12/20 09:41 Oxygen Flow Rate 0 04/12/20 09:41 Pain Level 0 04/12/20 09:41 Lab/Test Results Lab/Test Results: Laboratory Tests Range/Units 04/12/20 04/12/20 04/12/20 09:54 09:54 09:54 WBC (4.4-10.8) k/cumm 2.96 L RBC (4.00-5.20) m/cumm 2.58 L Hgb (12.0-15.5) g/dL 11.0 L Hct (36.0-46.0) % 30.9 L MCV (80-95) fL 119.8 H MCH (27.0-33.0) pg 42.6 H MCHC (32.0-36.0) g/dL 35.6 RDW (11.7-14.6) % 12.4 Plt Count (130-400) x1000/uL 719 H MPV (8.0-11.0) fL 10.2 Immature Gran % % 0.0 Neutrophils % 68.2 Lymphocytes % 21.3 Monocytes % 8.1 Eosinophils % 1.0 Basophils % 1.4 Absolute Neutrophils (1.2-6.7) k/cumm 2.02 Absolute Lymphocytes (1.2-3.4) k/cumm 0.63 L Absolute Monocytes (0.11-0.7) k/cumm 0.24 Absolute Eosinophils (0.0-0.7) k/cumm 0.03 Absolute Basophils (0.0-0.2) k/cumm 0.04 Differential Comment Diff reviewed RBC Morphology See below Poikilocytosis 1+ Macrocytosis 2+ Sodium (136-145) mmol/L 132 L Potassium (3.5-5.1) mmol/L 4.0 Chloride (98-107) mmol/L 96 L Carbon Dioxide (21.0-32.0) mmol/L 25.1 Anion Gap (3-11) mmol/L 10.9 BUN (7-18) mg/dL 11 Creatinine (0.55-1.02) mg/dL 1.05 H Estimated GFR/1.73 m2 (mL/min/1.73m2) 50.05 Glucose (74-106) mg/dL 135 H Calcium (8.5-10.1) mg/dL 9.0 Magnesium (1.8-2.4) mg/dL 2.0 Total Bilirubin (0.2-1.0) mg/dL 0.4 AST (15-37) U/L 26 ALT (14-59) U/L 28 Alkaline Phosphatase (46-116) U/L 83 Troponin I (<0.06) ng/mL < 0.05 Total Protein (6.4-8.2) g/dL 6.7 Albumin (3.4-5.0) g/dL 3.9
[2020-04-12 12:33] LABS: Bilirubin Negative (Negative); Blood Negative (Negative); Clarity Sl Cloudy (Clear); Glucose Negative (Negative); Ketones Trace mg/dL (Negative); Leukocyte Esterase Moderate (Negative); Nitrite Negative (Negative); Urobilinogen 0.2 EU/dL (Up TO 0.2)
[2020-04-12 12:45] LABS: Bacteria Moderate HPF (Negative); C & S Indicated? No/Sq. Contamination; Casts Negative LPF (Negative); Crystals Negative HPF (Negative); Epithelial Cells Moderate HPF (Negative); Mucus Negative (Negative); Other Cells Negative (Negative); RBC 0-2 HPF (0-2); WBC >50 HPF (0-5)
[2020-04-12 13:31] LABS: Bilirubin Negative (Negative); Blood Negative (Negative); Clarity Sl Cloudy (Clear); Glucose Negative (Negative); Ketones 15 mg/dL (Negative); Nitrite Negative (Negative); Specific Gravity 1.015 (1.005-1.025); Urobilinogen 0.2 EU/dL (Up TO 0.2)
[2020-04-12 13:40] LABS: Leukocyte Esterase Negative (Negative)
[2020-04-12 14:57] LABS: TSH (W/Ref FT4) 0.06 uIU/mL (0.36-3.74)
[2020-04-12 15:12] LABS: FREE T4 1.45 ng/dL (0.76-1.46)
--- NOTE | 2020-04-12 15:37 | CMPROGNOTE_ITS ---
- If Service Date Differs Date of service: 04/12/20 Time of Service: 15:37 Care Management Progress Note CM was paged to assist with home health orders for Shayla while she was being seen in the ED. CM delivered HH orders for the provider to sign. CM faxed new referral to HH for RN, PT, GEOLOGY ASSOCIATE. Per report, Shayla lives at home with her daughter, who recently returned to work. There is concern for compliance with medication, as well as dizzy spells/balance. GEOLOGY ASSOCIATE ordered for assistance with community supports and options going forward to keep Shayla safe at home. EVELINE offered a FWW, as it was recommended by the provider, but Shayla's daughter stated that she already has one. Shayla's daughter picked her up, and she returned home with new HH orders.
== END 2020-04-12 15:46 | disposition home or self-care (01) ==
PROVIDERS: Emergency Provider Physician Assistant; PCP Family Medicine
DX: R42 Dizziness and giddiness (principal); R94.6 Abnormal results of thyroid function studies; I10 Essential (primary) hypertension
CPT/HCPCS: 36415; 51701; 80053; 93005; 96361; 96365; 99285; 70450; 71046; 81003; 81015; 83735; 84439; 84443; 84484; 85025; 93010; J0131

== ENCOUNTER 2020-05-06 12:36 | Outpatient (CLI) | payer MEDICARE, MEDICAID, SELFPAY | END 2020-05-06 12:56 | PROVIDERS: PCP Family Medicine; Visit Provider Family Medicine | DX: R00.2 Palpitations (principal) | CPT/HCPCS: 93225 ==

== ENCOUNTER 2020-05-09 14:21 | Outpatient (CLI) | payer MEDICARE, MEDICAID, SELFPAY ==
--- NOTE | 2020-05-12 11:25 | W.HOLTRPT ---
Date of service: 05/12/20 Time of Service: 11:25 Holter Monitor Report Holter Monitor Note: This was a 48-hour Holter monitor Rhythm throughout was sinus with an average heart rate of 77 bpm, minimum of 60 and maximum 114. There were very rare ventricular ectopic beats There were occasional atrial premature beats. There were 11 atrial runs the longest of which was 9 beats in length There were no pauses greater than 2 seconds. There was no bradycardia. There was no atrial fibrillation
== END 2020-05-09 14:41 ==
PROVIDERS: PCP Family Medicine; Visit Provider Family Medicine
DX: R00.2 Palpitations (principal)
CPT/HCPCS: 93226

== ENCOUNTER 2020-05-12 | Outpatient (CLI) | payer MEDICARE, MEDICAID, SELFPAY | END 2020-05-12 00:20 | PROVIDERS: PCP Family Medicine; Visit Provider Internal Medicine Cardiovascular Disease | DX: I49.1 Atrial premature depolarization (principal); R00.2 Palpitations | CPT/HCPCS: 93227 ==

== ENCOUNTER 2020-07-18 01:06 | Outpatient (CLI) | payer MEDICARE, MEDICAID, SELFPAY ==
[2020-07-18 12:43] LABS: Anion Gap 7.5 mmol/L (3-11); BUN 8 mg/dL (7-18); CO2 27.5 mmol/L (21.0-32.0); CREATININE 0.83 mg/dL (0.55-1.02); Calcium 9.3 mg/dL (8.5-10.1); Chloride 93 mmol/L (98-107); Glucose 99 mg/dL (74-106); HGB 11.4 g/dL (11.2-15.7); MCH 41.9 pg (27.0-33.0); MCHC 34.5 % (32.0-36.0); MCV 121.3 fL (80-95); MPV 11.1 fL (8.0-11.0); Potassium 5.7 mmol/L (3.5-5.1); RBC 2.72 10^6/uL (3.93-5.22); RDW 13.4 % (11.7-14.6); RDW-SD 59.8 fL; Sodium 128 mmol/L (136-145); WBC 4.88 10^3/uL (4.4-10.8)
[2020-07-18 12:52] LABS: Platelet Count 769 10^3/uL (130-400)
[2020-07-18 22:59] LABS: T3,Free 2.3 pg/mL (2.8-5.3)
== END 2020-07-18 01:26 ==
PROVIDERS: Visit Provider Family Medicine
DX: I10 Essential (primary) hypertension (principal); R79.89 Other specified abnormal findings of blood chemistry
CPT/HCPCS: 36415; 80048; 85027; 84481

== ENCOUNTER 2020-08-13 15:50 | Inpatient (IN) | payer MEDICARE, MEDICAID, SELFPAY ==
[2020-08-13] VITALS (14 sets, daily range): BP systolic 120–138; BP diastolic 59–95; PULSE 90–121; RESP 18–23; TEMP 36.2; O2SAT 95–100
--- NOTE | 2020-08-13 15:45 | RT.EKG_ITS ---
APPROVED REPORT Exam: Resting ECG Patient Location: E HR:110 bpm ECG Measurements Heart Rate 110 AXIS [place] 137 P 44 QRSd 76 QRS 12 QT 323 T 18 QTc 438 Conclusion Sinus tachycardia, rate 110. Bigeminy present.
--- NOTE | 2020-08-13 15:54 | W.ED.GENAD ---
Discharge Plan Disposition Patient Disposition: [facility] INPATIENT Condition: Stable Discharge Details Clinical Impression: Altered mental status, Chronic hyponatremia Primary Care Provider: Heaven Morin ED Provider: Kuldeep Marin Home Meds and New Rx's Prescriptions: No Action hydroxyurea [Hydrea] 500 mg capsule See Rx Instructions PO .COMPLEX Qty: 90 RF: 3 cyanocobalamin (vitamin B-12) [Vitamin B-12] 500 MCG tablet 500 mcg PO DAILY RF: 0 cholecalciferol (vitamin D3) 1,000 UNIT tablet 1,000 unit PO DAILY RF: 0 I-Caps 1 EACH capsule 1 ea PO DAILY RF: 0 triamcinolone acetonide 15 GM cream 15 % Topical BID Qty: 30 RF: 3 amlodipine 5 mg tablet 2.5 mg PO DAILY Qty: 90 RF: 3 lisinopril 10 mg tablet 10 mg PO DAILY Qty: 90 RF: 4 levothyroxine 150 mcg tablet 150 mcg PO DAILY Qty: 90 RF: 4 aspirin [Aspir-81] 81 MG tablet,delayed release (DR/EC) 81 mg PO DAILY Qty: 100 RF: 0 meclizine 12.5 MG tablet 12.5 mg PO Q6H PRN (Reason: dizziness) Qty: 20 RF: 1 Medical Decision Making 84-year-old female presents from home via EMS. By report she has 6 days of generalized confusion with hallucinations. This is similar to episodes in the past including July of last year which been associated with hyponatremia. There is also thought to be some association with the anniversary of the of her sister this time of year. Family reported 2 days of poor sleep. Patient arrives to the ER awake and alert, conversant and interactive, but confused and with tangential thoughts. Her pulse is in the 120s, she is afebrile with a blood pressure 122/59. IV placed and normal saline initiated at maintenance rate. Patient referred for urinalysis, blood work, chest x-ray and CT scan of the head given her nonspecific presentation. She does have hyponatremia with a sodium of 129. Also noted is elevated BUN of 22 with a creatinine of 1.5. CBC notes white count 6, hematocrit 28, platelets 692. MCV elevated at 117. Slightly positive alcohol level of 3.7. Urinalysis with mixed cells. Chest x-ray with question of mild developing airspace disease versus nodularity of right lung base. CT of the head without evidence of acute intracranial pathology. I discussed the case with the patient's daughter Terri, as well her daughter Kathie who states no sleep for 5-6 days. Similar episode [address] Gaona placed her on a fluid restriction. Kathie is salesperson furniture and can be reached by phone [phone]. The family questions the possibility of Mihai Bonnet syndrome. Case discussed with Dr. Howard and patient to be admitted. Lab Data Lab results reviewed: Yes I reviewed the patient's lab results. Labs: Laboratory Results - last 24 hr 08/13/20 08/13/20 08/13/20 16:10 16:10 16:10 WBC 6.11 RBC 2.40 L Hgb 9.8 L Hct 28.1 L MCV 117.1 H MCH 40.8 H MCHC 34.9 RDW 13.3 Plt Count 692 H MPV 10.6 Immature Gran % 0.7 Neutrophils % 68.6 Lymphocytes % 12.8 Monocytes % 16.5 Eosinophils % 0.7 Basophils % 0.7 Nucleated RBC % 0 Absolute Neutrophils 4.20 Absolute Lymphocytes 0.78 L Absolute Monocytes 1.01 H Absolute Eosinophils 0.04 Absolute Basophils 0.04 RBC Morphology See below Anisocytosis 1+ Macrocytosis 2+ Ovalocytes 2+ Sodium 129 L Potassium 3.9 Chloride 93 L Carbon Dioxide 24.4 Anion Gap 11.6 H BUN 22 H Creatinine 1.58 H Estimated GFR/1.73 m2 31.23 Glucose 118 H Calcium 9.4 Magnesium 1.9 Total Bilirubin 0.7 AST 40 H ALT 26 Alkaline Phosphatase 79 Troponin I < 0.05 Total Protein 6.8 Albumin 4.2 Urine Color Urine Clarity Urine pH Ur Specific [place] Urine Protein Urine Ketones Urine Blood Urine Nitrite Urine Bilirubin Urine Urobilinogen Ur Leukocyte Esterase Urine RBC Urine WBC Ur Epithelial Cells Urine Crystals Urine Bacteria Urine Casts Urine Mucus Ur Culture Indicated? Urine Glucose Urine Opiates Screen Negative Urine Methadone Screen Negative Ur Barbiturates Screen Negative Ur Tricyclics Screen Negative Ur Amphetamines Screen Negative U Benzodiazepines Scrn Negative Urine Cocaine Screen Negative Ur THC Screen Negative Ethyl Alcohol 3.7 08/13/20 16:10 WBC RBC Hgb Hct MCV MCH MCHC RDW Plt Count MPV Immature Gran % Neutrophils % Lymphocytes % Monocytes % Eosinophils % Basophils % Nucleated RBC % Absolute Neutrophils Absolute Lymphocytes Absolute Monocytes Absolute Eosinophils Absolute Basophils RBC Morphology Anisocytosis Macrocytosis Ovalocytes Sodium Potassium Chloride Carbon Dioxide Anion Gap BUN Creatinine Estimated GFR/1.73 m2 Glucose Calcium Magnesium Total Bilirubin AST ALT Alkaline Phosphatase Troponin I Total Protein Albumin Urine Color Yellow Urine Clarity Clear Urine pH 6.0 Ur Specific [place] 1.020 Urine Protein 30 H Urine Ketones 15 H Urine Blood Negative Urine Nitrite Negative Urine Bilirubin Small H Urine Urobilinogen 1.0 H Ur Leukocyte Esterase Negative Urine RBC 0-2 Urine WBC 0-2 Ur Epithelial Cells Rare Urine Crystals Negative Urine Bacteria Rare Urine Casts 20-50 hyaline Urine Mucus Moderate Ur Culture Indicated? No Urine Glucose Negative Urine Opiates Screen Urine Methadone Screen Ur Barbiturates Screen Ur Tricyclics Screen Ur Amphetamines Screen U Benzodiazepines Scrn Urine Cocaine Screen Ur THC Screen Ethyl Alcohol HPI General Mode of arrival: EMS. Date/Time Provider Initiated Documentation: 08/13/20 15:57. Limitations to Documentation: no limitations. Information obtained by: patient and EMS. History of Present Illness 84 year old F presents to the emergency department with the chief complaint of Mental status changes with hallucinations, 6 days, similar to previous, described as similar to prior episodes, Patient started experiencing this day(s) and it has been intermittent. No relieving factors improve symptom(s), No exacerbating factors reported . Patient notes denies fever/chills, headaches and nausea/vomiting. Patient did receive the following treatments prior to arrival, none Related Data Home Medications Medication Instructions Recorded Confirmed I-Caps 1 ea PO DAILY 01/03/13 07/17/20 cholecalciferol (vitamin D3) 1,000 unit PO DAILY 01/03/13 07/17/20 cyanocobalamin (vitamin B-12) 500 mcg PO DAILY 01/03/13 07/17/20 [Vitamin B-12] triamcinolone acetonide 15 % TOPICAL BID #30 g 04/06/16 07/17/20 aspirin [Aspir-81] 81 mg PO DAILY #100 tablet. 08/22/17 07/17/20 hydroxyurea 500 mg capsule See Rx Instructions PO .COMPLEX 08/24/19 08/13/20 #90 cap amlodipine 5 mg tablet 2.5 mg PO DAILY #90 tab-cap 08/28/19 08/13/20 lisinopril 10 mg tablet 10 mg PO DAILY #90 tab 10/26/19 08/13/20 meclizine 12.5 mg PO Q6H PRN #20 tab 04/12/20 08/13/20 levothyroxine 150 mcg tablet 150 mcg PO DAILY #90 tab-cap 07/21/20 08/13/20 Previous Rx's Medication Instructions Recorded aspirin [Aspir-81] 81 mg PO DAILY #100 tablet. 08/22/17 hydroxyurea 500 mg capsule See Rx Instructions PO .COMPLEX 08/24/19 #90 cap amlodipine 5 mg tablet 2.5 mg PO DAILY #90 tab-cap 08/28/19 lisinopril 10 mg tablet 10 mg PO DAILY #90 tab 10/26/19 meclizine 12.5 mg PO Q6H PRN #20 tab 04/12/20 levothyroxine 150 mcg tablet 150 mcg PO DAILY #90 tab-cap 07/21/20 Allergies Allergy/AdvReac Type Severity Reaction Status Date / Time Iodinated Contrast Media Allergy Intermediate Skin Rash Verified 07/17/20 10:47 [Iodinated Contrast- Oral and IV Dye] General ERIKA: 3 Review of Systems Narrative: History of similar episodes in the past with low sodium. Questionably due to time of year/anniversary of sister's . Daughter Kathie who lives with the patient reports poor sleep for 2 nights and worsening confusion. [facility] Medical History Chronic diastolic heart failure (05/18/17) Dementia, Alzheimer's, with behavior disturbance Essential hypertension (09/12/13) History of left heart catheterization History of tobacco use Hyperlipidemia (01/03/13) Hyponatremia (02/13/18) Hypothyroidism (acquired) (01/03/13) Primary thrombocytosis (10/11/17) Restless leg syndrome Rheumatic aortic stenosis Surgical History Appendectomy (10/19/1952) History of aortic valve replacement LEFT HEART CARDIAC CATH Valve Replacement [facility] Social History Smoking/Tobacco Use Status: Former Tobacco Use Alcohol Intake: never Drug use: Never Do you feel safe at home: Yes Do you feel safe in your relationship?: Yes Exam Narrative Exam Narrative: GEN: awake, alert. Pleasant, well groomed, interactive. HEAD: Normocephalic, atraumatic ENT: Mucous membranes dry, oropharynx unremarkable, External ear exam unremarkable EYES: PERRL, EOMI NECK: Full ROM, no TONG, no menigismus CHEST/RESP: Nontender, clear to auscultation bilateral, no wheeze/rhonchi/rales CARDIOVASCULAR: Regular, borderline tachycardia, no murmur, rub blake. 2+ Rad pulse bilateral ABDOMEN: Soft, nontender, no mass. +Bowel sounds EXT: Full ROM, no edema, no rash Neuro: Grossly normal neurologic exam, conversant, interactive. Psych: Speech fluent, thoughts tangential, affect flat
--- NOTE | 2020-08-13 16:00 | DI.CT_ITS ---
EXAM: CT HEAD WO CLINICAL HISTORY: Confusion. TECHNIQUE: Imaging Protocol: Axial computed tomography images with coronal and sagittal reformatted images were created and reviewed COMPARISON: CT CT HEAD WO from 04/12/2020 FINDINGS: Ventricles and Extra axial spaces: Normal in size and morphology for the patient's age. Hemorrhage: None. Cerebral parenchyma: There are areas of decreased attenuation in the white matter consistent with chr onic small vessel ischemic disease. No acute territorial infarct. Midline shift: None. Brainstem/Cerebellum: Normal. Calvarium: Normal. Visualized Paranasal sinuses/Mastoids: Clear. Soft Tissues: Unremarkable. IMPRESSION: No acute intracranial process. RADIATION DOSE DELIVERED: 726.06mGy.cm Total DLP DATA REPOSITORY: All CT scans at this facility are submitted to the National Radiology Data Registry (NRDR) Dose Index Registry (DIR) with the [employer] (ACR). RADIATION OPTIMIZATION: All CT scans at this facility use at least one of these dose optimization te chniques: automated exposure control; mA and/or kV adjustment per patient size (includes targeted exa ms where dose is matched to clinical indication); or iterative reconstruction.
--- NOTE | 2020-08-13 16:00 | DI.RAD_ITS ---
EXAM: XR CHEST 2V PA LATERAL CLINICAL HISTORY: Confusion TECHNIQUE: 2D digital imaging was performed. COMPARISON: CR,XR XR CHEST 2V PA LATERAL from 04/12/2020 FINDINGS: MEDIASTINUM: Normal. HEART: Prior aortic valve replacement. PULMONARY VASCULATURE: Nodular opacity has developed in the right lung base. There is atelectasis or scarring in the left lung base. LUNGS: Please see above. PLEURAL SPACE: No pleural effusion or pneumothorax. BONE:Prior sternotomy. OTHER FINDINGS:Normal. IMPRESSION: Infiltrate versus nodularity in the right lung base. This may represent pneumonia. Please correlate clinically. A follow-up chest x-ray to document resolution the right basilar finding is recommended . DATA REPOSITORY: RADIATION DOSE DELIVERED:
[2020-08-13 16:26] LABS: Abs Immature Grans 0.04 10^3/uL (0.0-0.06); Absolute Basophil Count 0.04 10^3/uL (0.0-0.2); Absolute Eosinophil Count 0.04 10^3/uL (0.0-0.7); Absolute Lymphocyte Count 0.78 10^3/uL (1.2-3.4); Absolute Monocyte Count 1.01 10^3/uL (0.1-0.8); Basophils % 0.7; Eosinophils % 0.7; HCT 28.1 % (36.0-46.0); HGB 9.8 g/dL (11.2-15.7); Immature Grans % 0.7; Lymphocytes % 12.8; MCH 40.8 pg (27.0-33.0); MCHC 34.9 % (32.0-36.0); MCV 117.1 fL (80-95); MPV 10.6 fL (8.0-11.0); Monocytes % 16.5; Neutrophils % 68.6; Nucleated RBC 0 %; Platelet Count 692 10^3/uL (130-400); RDW 13.3 % (11.7-14.6); RDW-SD 57.4 fL; WBC 6.11 10^3/uL (4.4-10.8)
[2020-08-13 16:27] LABS: Bilirubin Small (Negative); Blood Negative (Negative); Clarity Clear (Clear); Glucose Negative (Negative); Ketones 15 mg/dL (Negative); Leukocyte Esterase Negative (Negative); Nitrite Negative (Negative)
[2020-08-13 16:35] LABS: Bacteria Rare HPF (Negative); C & S Indicated? No; Casts 20-50 Hyaline LPF (Negative); Crystals Negative HPF (Negative); Epithelial Cells Rare HPF (Negative); Mucus Moderate (Negative); RBC 0-2 HPF (0-2); WBC 0-2 HPF (0-5)
[2020-08-13 16:38] LABS: Diff Comment RBC Morph Reviewed
[2020-08-13 16:39] LABS: Anisocytosis 1+; Macrocytosis 2+
[2020-08-13 16:40] LABS: *AMPHETAMINES SCREEN URINE Negative (Negative); *BARBITURATES SCREEN URINE Negative (Negative); *BENZODIAZEPINES SCREEN URINE Negative (Negative); Cannabinoids THC Negative (Negative); Cocaine Screen,Urine Negative (Negative); METHADONE URINE SCREEN Negative (Negative); OPIATES URINE SCREEN Negative (Negative); Ovalocytes 2+
[2020-08-13 16:42] LABS: Tricyclic Antidepressants Negative (Negative)
[2020-08-13 16:47] LABS: ALT 26 U/L (14-59); AST 40 U/L (15-37); Albumin 4.2 g/dL (3.4-5.0); Alkaline Phosphatase 79 U/L (46-116); Anion Gap 11.6 mmol/L (3-11); BUN 22 mg/dL (7-18); Bilirubin, Total 0.7 mg/dL (0.2-1.0); CO2 24.4 mmol/L (21.0-32.0); CREATININE 1.58 mg/dL (0.55-1.02); Calcium 9.4 mg/dL (8.5-10.1); Chloride 93 mmol/L (98-107); ETHANOL BLOOD 3.7 mg/dL (<3); Estimated GFR 31.23 (mL/min/1.73m2); Glucose 118 mg/dL (74-106); Magnesium 1.9 mg/dL (1.8-2.4); Potassium 3.9 mmol/L (3.5-5.1); Sodium 129 mmol/L (136-145); Total Protein 6.8 g/dL (6.4-8.2); Troponin I < 0.05 ng/mL (<0.06)
[2020-08-13] MEDS: Normal Saline Flush 10 ML SYR IVP (16:48)
[2020-08-13] MEDS: Normal Saline 1,000 ML 150 ML IV (16:49)
--- NOTE | 2020-08-13 17:46 | W.PM.HP.N ---
Date of service: 08/13/20 Time of Service: 17:46 Assessment and Plan Assessment and plan (1) Hallucinations: Status: Acute Assessment and plan: I think dementia is the issue here. With prominence of visual hallucinations would consider Lewy body variety. May be aggravated by sleep deprivation. I do not see that the hyponatremia would be a significant factor, if at all, since this is essentially at baseline. ER has initiated NS at 150/hr. I think we can and should back off more to a maintenance level dose and will track. I think a trial of low dose Risperidal would be appropriate. Will also update TSH, which was in toxic range in March, could be a factor. Anemia noted, will track, and check stools in interim since this is lower than in July, though not far overall from baseline. Carries dx of essential thrombocytosis but unclear if the chronic anemia reflects some further hematological progression or unrelated matter. History of Present Illness History of Present Illness Chief Complaint: agitation Narrative: 84 female with h/o unspecified hallucinatory disorder, with concomitant listed diagnosis of dementia. Here with 5 days of increasing agitation and hallucinations and inability to sleep. In ER w/u of note for neg head CT, normal white count, Hct 28 (baseline low 30s) and sodium 129 (baseline high 120s-low 130s). Etoh 3.7, UDS neg. No new meds. ER obtained above history from daughter by phone, patient unable to provide any history. Review of Systems Unobtainable due to mental condition [facility] Medical History Chronic diastolic heart failure (05/18/17) Dementia, Alzheimer's, with behavior disturbance Essential hypertension (09/12/13) History of left heart catheterization History of tobacco use Hyperlipidemia (01/03/13) Hyponatremia (02/13/18) Hypothyroidism (acquired) (01/03/13) Primary thrombocytosis (10/11/17) Restless leg syndrome Rheumatic aortic stenosis Surgical History Appendectomy (10/19/1952) History of aortic valve replacement LEFT HEART CARDIAC CATH Valve Replacement [facility] Social History Smoking/Tobacco Use Status: Former Tobacco Use Alcohol Intake: never Drug use: Never Do you feel safe at home: Yes Do you feel safe in your relationship?: Yes Meds Home Medications and Allergies Home Medications Medication Instructions Recorded Confirmed Type I-Caps 1 ea PO DAILY 01/03/13 07/17/20 History cholecalciferol (vitamin D3) 1,000 unit PO DAILY 01/03/13 07/17/20 History cyanocobalamin (vitamin B-12) 500 mcg PO DAILY 01/03/13 07/17/20 History [Vitamin B-12] triamcinolone acetonide 15 % TOPICAL BID #30 g 04/06/16 07/17/20 History aspirin [Aspir-81] 81 mg PO DAILY #100 tablet.dr 08/22/17 07/17/20 Rx hydroxyurea 500 mg capsule See Rx Instructions PO .COMPLEX 08/24/19 08/13/20 Rx #90 cap amlodipine 5 mg tablet 2.5 mg PO DAILY #90 tab-cap 08/28/19 08/13/20 Rx lisinopril 10 mg tablet 10 mg PO DAILY #90 tab 10/26/19 08/13/20 Rx meclizine 12.5 mg PO Q6H PRN #20 tab 04/12/20 08/13/20 Rx levothyroxine 150 mcg tablet 150 mcg PO DAILY #90 tab-cap 07/21/20 08/13/20 Rx Allergies Allergy/AdvReac Type Severity Reaction Status Date / Time Iodinated Contrast Media Allergy Intermediate Skin Rash Verified 07/17/20 10:47 [Iodinated Contrast- Oral and IV Dye] Exam Narrative Exam Narrative: 122/59, 94, 36.2, 18-23, 96% RA. HEENT atraumatic; neck supple; lungs clear; heart RRR 2/6 sys murmur LSB; abdomen soft and NT; extremities trace pedal edema; neuro Ox1 plus (knows it's 2019 but thinks it's September; thinks we're in [place], does not know President), moves all 4s Results Labs Result diagrams: 08/13/20 16:10 08/13/20 16:10 Labs: Laboratory Results - last 24 hr 08/13/20 08/13/20 08/13/20 16:10 16:10 16:10 WBC 6.11 RBC 2.40 L Hgb 9.8 L Hct 28.1 L MCV 117.1 H MCH 40.8 H MCHC 34.9 RDW 13.3 Plt Count 692 H MPV 10.6 Immature Gran % 0.7 Neutrophils % 68.6 Lymphocytes % 12.8 Monocytes % 16.5 Eosinophils % 0.7 Basophils % 0.7 Nucleated RBC % 0 Absolute Neutrophils 4.20 Absolute Lymphocytes 0.78 L Absolute Monocytes 1.01 H Absolute Eosinophils 0.04 Absolute Basophils 0.04 RBC Morphology See below Anisocytosis 1+ Macrocytosis 2+ Ovalocytes 2+ Sodium 129 L Potassium 3.9 Chloride 93 L Carbon Dioxide 24.4 Anion Gap 11.6 H BUN 22 H Creatinine 1.58 H Estimated GFR/1.73 m2 31.23 Glucose 118 H Calcium 9.4 Magnesium 1.9 Total Bilirubin 0.7 AST 40 H ALT 26 Alkaline Phosphatase 79 Troponin I < 0.05 Total Protein 6.8 Albumin 4.2 Urine Color Urine Clarity Urine pH Ur Specific [place] Urine Protein Urine Ketones Urine Blood Urine Nitrite Urine Bilirubin Urine Urobilinogen Ur Leukocyte Esterase Urine RBC Urine WBC Ur Epithelial Cells Urine Crystals Urine Bacteria Urine Casts Urine Mucus Ur Culture Indicated? Urine Glucose Urine Opiates Screen Negative Urine Methadone Screen Negative Ur Barbiturates Screen Negative Ur Tricyclics Screen Negative Ur Amphetamines Screen Negative U Benzodiazepines Scrn Negative Urine Cocaine Screen Negative Ur THC Screen Negative Ethyl Alcohol 3.7 08/13/20 16:10 WBC RBC Hgb Hct MCV MCH MCHC RDW Plt Count MPV Immature Gran % Neutrophils % Lymphocytes % Monocytes % Eosinophils % Basophils % Nucleated RBC % Absolute Neutrophils Absolute Lymphocytes Absolute Monocytes Absolute Eosinophils Absolute Basophils RBC Morphology Anisocytosis Macrocytosis Ovalocytes Sodium Potassium Chloride Carbon Dioxide Anion Gap BUN Creatinine Estimated GFR/1.73 m2 Glucose Calcium Magnesium Total Bilirubin AST ALT Alkaline Phosphatase Troponin I Total Protein Albumin Urine Color Yellow Urine Clarity Clear Urine pH 6.0 Ur Specific [place] 1.020 Urine Protein 30 H Urine Ketones 15 H Urine Blood Negative Urine Nitrite Negative Urine Bilirubin Small H Urine Urobilinogen 1.0 H Ur Leukocyte Esterase Negative Urine RBC 0-2 Urine WBC 0-2 Ur Epithelial Cells Rare Urine Crystals Negative Urine Bacteria Rare Urine Casts 20-50 hyaline Urine Mucus Moderate Ur Culture Indicated? No Urine Glucose Negative Urine Opiates Screen Urine Methadone Screen Ur Barbiturates Screen Ur Tricyclics Screen Ur Amphetamines Screen U Benzodiazepines Scrn Urine Cocaine Screen Ur THC Screen Ethyl Alcohol Last Vital Signs Temp 36.2 C L 08/13/20 16:12 Pulse 121 H 08/13/20 16:12 Resp 23 08/13/20 16:20 BP 122/59 L 08/13/20 16:12 Pulse Ox 96 08/13/20 16:12 COVID-19 Screening Have you,or household,traveled outside [place] in last 14 days?: No Had IN PERSON contact w/suspected or confirmed C-19 person: No
[2020-08-13 18:36] LABS: TSH 0.16 uIU/mL (0.36-3.74)
[2020-08-13] MEDS: risperiDONE 0.25 MG TAB PO (19:23)
[2020-08-13] MEDS: Haloperidol 5 MG/ML VIAL 4 MG IM (20:38)
[2020-08-14 07:56] LABS: HCT 26.1 % (36.0-46.0); MCH 40.7 pg (27.0-33.0); MCHC 34.5 % (32.0-36.0); MCV 118.1 fL (80-95); MPV 10.7 fL (8.0-11.0); Platelet Count 524 10^3/uL (130-400); RBC 2.21 10^6/uL (3.93-5.22); RDW 13.2 % (11.7-14.6); RDW-SD 56.6 fL; WBC 3.96 10^3/uL (4.4-10.8)
[2020-08-14 08:09] LABS: Anion Gap 8.7 mmol/L (3-11); BUN 22 mg/dL (7-18); CO2 25.3 mmol/L (21.0-32.0); CREATININE 1.04 mg/dL (0.55-1.02); Calcium 8.8 mg/dL (8.5-10.1); Chloride 97 mmol/L (98-107); Estimated GFR 50.61 (mL/min/1.73m2); Glucose 91 mg/dL (74-106); Potassium 3.7 mmol/L (3.5-5.1); Sodium 131 mmol/L (136-145)
[2020-08-14 08:15] LABS: COVID-19 RT-PCR UVMMC Result Negative (Negative)
[2020-08-14 10:29] VITALS: BP 138/64; PULSE 90; RESP 16; TEMP 36.8; O2SAT 97
[2020-08-14] MEDS: Lisinopril 10 MG TAB PO (10:31)
[2020-08-14] MEDS: Cyanocobalamin 500 MCG TAB PO (10:32)
[2020-08-14] MEDS: risperiDONE 0.25 MG TAB PO (10:32)
[2020-08-14] MEDS: amLODIPine 5 MG TAB 2.5 MG PO ×2 (10:32→21:10)
[2020-08-14] MEDS: Aspirin E.C. 81 MG TABEC PO (10:32)
--- NOTE | 2020-08-14 11:45 | PDOC.CMIN ---
- If Service Date Differs Date of service: 08/14/20 Time of Service: 11:45 Care Management Initial Assess REASON FOR HOSPITALIZATION:: Agitation, hallucinations PAST MEDICAL HISTORY/PAST SURGICAL HISTORY:: Medical History . Chronic diastolic heart failure (05/18/17). Dementia, Alzheimer's, with behavior disturbance. Essential hypertension (09/12/13). History of left heart catheterization. History of tobacco use. Hyperlipidemia (01/03/13). Hyponatremia (02/13/18). Hypothyroidism (acquired) (01/03/13). Primary thrombocytosis (10/11/17). Restless leg syndrome. Rheumatic aortic stenosis. Surgical History . Appendectomy (10/19/1952). History of aortic valve replacement. LEFT HEART CARDIAC CATH. Valve Replacement. [facility] PREVIOUS FUNCTIONAL STATUS/SOCIAL/FAMILY SUPPORTS:: Shayla lives with her daughter in [place], [place] in her own home. She is she has four children all of them live local. Her daughter Kathie is here with her during assessment and is able to answer questions. Shayla is able to complete her ADL's her daughter states that her short term memory comes and goes. CURRENT FUNCTIONAL STATUS:: Shayla is sleepy during assessment, she does not engage with CM and often shuts her eyes when discussing her history. Her daughter is concerned about bringing her home to quickly and having the episodes start again. She states that Shayla falls frequently and moves around constantly during her episodes of agitation. She is hopeful that Shayla will be able to have medication adjustment while she is here at [facility] and transition to [facility] if accepted before returning home. ADVANCE DIRECTIVES:: None on file - palliative care consult ordered. Has patient been provided with info about the portal/API?: Yes Did the patient sign up for the portal?: No CODE STATUS:: DNR/DNI INSURANCE COVERAGE / FINANCIAL ISSUES:: Medicare and Medicaid CURRENT HOME/COMMUNITY SERVICES/EQUIPMENT:: No current services her daughter cares for her at home. PRIMARY CARE PHYSICIAN:: Heaven Morin POTENTIAL DISCHARGE NEEDS:: Transfer to [facility] if accepted vs SNF for short term rehab PATIENT/FAMILY EDUCATION NEEDS:: Discharge education, limiitations and follow up plan of care. ANTICIPATED BARRIERS TO DISCHARGE:: Pending transition to SNF level of care vs geriatric psych TRANSPORTATION:: Pending disposition PLAN:: Shayla is acute at this time, she has a neurology consult and needs imedication adjustment to manage her symptoms of hallucinations. CM faxed referral to [facility] waiting review. CM will intiate referrals to SNF facilities if declined by [facility] for short rehab stay.
--- NOTE | 2020-08-14 12:11 | W.PM.PROGNOT ---
Date of Service Date of service: 08/14/20 Time of Service: 12:11 Assessment and Plan Assessment and plan (1) Dementia, Alzheimer's, with behavior disturbance: Status: Acute Assessment and plan: seen by neurology, will stop risperidone and start seroquel, safety precautions (2) Chronic hyponatremia: Status: Acute Assessment and plan: stable. will implement fluid restriction, (3) Hallucinations: Status: Acute Assessment and plan: denies at this time. will monitor (4) Hypothyroidism: Status: Chronic Assessment and plan: TSH low at 0.16, will reduce dose of synthroid (5) Primary thrombocytosis: Status: Acute Assessment and plan: will continue hydroxyurea (6) Discharge planning issues: Status: Acute Assessment and plan: case management consultation, will place referral for [facility]. Subjective Subjective Interval history since last seen: medically has remained stable, eating and drinking. she is oriented to person and place but unsure why she is here. Her daughter states she is not at her baseline and appears groggy to her. patient is sitting at bedside alert and eating during my interview. Exam Const General: cooperative and no acute distress Nutritional Appearance: average body habitus Orientation: alert, awake, oriented to person, oriented to place and confused HENMT Head: normal to inspection, normocephalic and atraumatic Mouth: oral mucosae normal Resp Effort & Inspection: normal respiratory effort Auscultation: clear to auscultation bilaterally Cardio Rate: regular rate Rhythm: regular rhythm GI Inspection: normal to inspection Palpation: soft Auscultation: normal bowel sounds Skin General skin exam: no rashes or lesions noted Neuro General: patient alert, patient awake, moves all extremities, no focal motor deficits and patient confused Extrem General: normal to inspection, full ROM and no pedal edema Psych Appearance: grossly normal Speech and Movement: speech and movement normal Mood: congruent mood Affect: normal affect Attitude: cooperative Thought Content: hallucinations (denies here) Insight: limited Judgment: limited Objective Last Vital Signs Temp 36.8 C 08/14/20 10:29 Pulse 90 08/14/20 10:29 Resp 16 08/14/20 10:29 BP 138/64 08/14/20 10:29 Pulse Ox 97 08/14/20 10:29 Laboratory Results - last 24 hr 08/13/20 08/13/20 08/13/20 16:10 16:10 16:10 WBC 6.11 RBC 2.40 L Hgb 9.8 L Hct 28.1 L MCV 117.1 H MCH 40.8 H MCHC 34.9 RDW 13.3 Plt Count 692 H MPV 10.6 Immature Gran % 0.7 Neutrophils % 68.6 Lymphocytes % 12.8 Monocytes % 16.5 Eosinophils % 0.7 Basophils % 0.7 Nucleated RBC % 0 Absolute Neutrophils 4.20 Absolute Lymphocytes 0.78 L Absolute Monocytes 1.01 H Absolute Eosinophils 0.04 Absolute Basophils 0.04 RBC Morphology See below Anisocytosis 1+ Macrocytosis 2+ Ovalocytes 2+ Sodium 129 L Potassium 3.9 Chloride 93 L Carbon Dioxide 24.4 Anion Gap 11.6 H BUN 22 H Creatinine 1.58 H Estimated GFR/1.73 m2 31.23 Glucose 118 H Calcium 9.4 Magnesium 1.9 Total Bilirubin 0.7 AST 40 H ALT 26 Alkaline Phosphatase 79 Troponin I < 0.05 Total Protein 6.8 Albumin 4.2 TSH Urine Color Urine Clarity Urine pH Ur Specific [place] Urine Protein Urine Ketones Urine Blood Urine Nitrite Urine Bilirubin Urine Urobilinogen Ur Leukocyte Esterase Urine RBC Urine WBC Ur Epithelial Cells Urine Crystals Urine Bacteria Urine Casts Urine Mucus Ur Culture Indicated? Urine Glucose Urine Opiates Screen Negative Urine Methadone Screen Negative Ur Barbiturates Screen Negative Ur Tricyclics Screen Negative Ur Amphetamines Screen Negative U Benzodiazepines Scrn Negative Urine Cocaine Screen Negative Ur THC Screen Negative Ethyl Alcohol 3.7 COVID-19 PCR Nasopharyn COVID-19 PCR Ref Test Perform Site 08/13/20 08/13/20 08/13/20 16:10 16:32 16:50 WBC RBC Hgb Hct MCV MCH MCHC RDW Plt Count MPV Immature Gran % Neutrophils % Lymphocytes % Monocytes % Eosinophils % Basophils % Nucleated RBC % Absolute Neutrophils Absolute Lymphocytes Absolute Monocytes Absolute Eosinophils Absolute Basophils RBC Morphology Anisocytosis Macrocytosis Ovalocytes Sodium Potassium Chloride Carbon Dioxide Anion Gap BUN Creatinine Estimated GFR/1.73 m2 Glucose Calcium Magnesium Total Bilirubin AST ALT Alkaline Phosphatase Troponin I Total Protein Albumin TSH 0.16 L Urine Color Yellow Urine Clarity Clear Urine pH 6.0 Ur Specific [place] 1.020 Urine Protein 30 H Urine Ketones 15 H Urine Blood Negative Urine Nitrite Negative Urine Bilirubin Small H Urine Urobilinogen 1.0 H Ur Leukocyte Esterase Negative Urine RBC 0-2 Urine WBC 0-2 Ur Epithelial Cells Rare Urine Crystals Negative Urine Bacteria Rare Urine Casts 20-50 hyaline Urine Mucus Moderate Ur Culture Indicated? No Urine Glucose Negative Urine Opiates Screen Urine Methadone Screen Ur Barbiturates Screen Ur Tricyclics Screen Ur Amphetamines Screen U Benzodiazepines Scrn Urine Cocaine Screen Ur THC Screen Ethyl Alcohol COVID-19 PCR Negative Nasopharyn COVID-19 PCR Not Applicable Ref Test Perform Site [place] [facility] 08/14/20 08/14/20 07:25 07:25 WBC 3.96 L D RBC 2.21 L Hgb 9.0 L Hct 26.1 L MCV 118.1 H MCH 40.7 H MCHC 34.5 RDW 13.2 Plt Count 524 H MPV 10.7 Immature Gran % Neutrophils % Lymphocytes % Monocytes % Eosinophils % Basophils % Nucleated RBC % Absolute Neutrophils Absolute Lymphocytes Absolute Monocytes Absolute Eosinophils Absolute Basophils RBC Morphology Anisocytosis Macrocytosis Ovalocytes Sodium 131 L Potassium 3.7 Chloride 97 L Carbon Dioxide 25.3 Anion Gap 8.7 BUN 22 H Creatinine 1.04 H D Estimated GFR/1.73 m2 50.61 Glucose 91 Calcium 8.8 Magnesium Total Bilirubin AST ALT Alkaline Phosphatase Troponin I Total Protein Albumin TSH Urine Color Urine Clarity Urine pH Ur Specific [place] Urine Protein Urine Ketones Urine Blood Urine Nitrite Urine Bilirubin Urine Urobilinogen Ur Leukocyte Esterase Urine RBC Urine WBC Ur Epithelial Cells Urine Crystals Urine Bacteria Urine Casts Urine Mucus Ur Culture Indicated? Urine Glucose Urine Opiates Screen Urine Methadone Screen Ur Barbiturates Screen Ur Tricyclics Screen Ur Amphetamines Screen U Benzodiazepines Scrn Urine Cocaine Screen Ur THC Screen Ethyl Alcohol COVID-19 PCR Nasopharyn COVID-19 PCR Ref Test Perform Site
--- NOTE | 2020-08-14 12:26 | PCNE_ITS ---
Date of service: 08/14/20 Time of Service: 12:26 History of Present Illness Narrative: Shayla is an 84 year old with a past medical history significant for Dementia, hypothyroidism, hearing loss, visual impairment, and diverticulosis. She was brought to the hospital by her daughter, with whom she lives, after several days of insomnia with hallucinations and agitation. Palliative care was consulted to establish care and discuss goals of care. Shayla is seen in her hospital room with her daughter, Kathie. She lives with Kathie. Shayla has been having spells of agitation and insomnia for about 8 years. She used to have the episodes about once per year. Over the last year she has had about 8 episodes. She talks to relatives, she thinks babies are in the house. She has gone days without sleep. She can be agitated and aggressive at times. She falls frequently, she has several areas of ecchymosis. At times, she has normal conversations. She takes care of herself, she bathes and gets her coffee and meals, although she no longer uses the stove. She was a heavy drinker all of her life. She does not drink alcohol anymore. She has macular degeneration and has very poor vision. Shayla was listed as a FULL CODE. We discussed CODE status and Kathie is very clear that her mother is a DNR/DNI. She talks about wanting to , she believes she is at the end of her life. She has never wanted aggressive care. Her code status has been changed to DNR/DNI. Assessment and Plan Assessment and plan (1) Hypothyroidism: Status: Chronic (2) Visual impairment: Status: Acute (3) Dementia: Status: Chronic (4) Altered mental status: Status: Acute (5) Hallucinations: Status: Acute (6) Sensorineural hearing loss of both ears: Status: Chronic (7) Palliative care patient: Status: Acute Assessment and plan: Shayla has been seen by neurology during her h ospitalization. It is not yet clear what type of dementia she has, unlikely Lewy body dementia, per neurology. Her daughter is having some difficulty caring for her at home due to her insomnia, hallucinations and agitation. She has been started on Seroquel at the hospital. She has remained calm, however, her daughter reports that she has calm periods between episodes. Kathie is reluctant to take her mom home as she is worried about another episode of insomnia for days with hallucinations and agitation. A referral has been sent to [facility]. Her daughter is hopeful that she will transfer to [facility] to have medications managed before she is discharged home. Her daughter plans on resuming care of her mother when she is discharged from the hospital. We discussed CODE STATUS, she was listed as a full code. Kathie is clear that her mother is a DNR/DNI, she has never wanted aggressive treatment, she states that her mother is clear that she is ready to when it is her time. She would benefit from being followed by palliative care as an outpatient. Kathie would be interested in getting her mom on hospice when she qualifies. Follow-up with palliative care at home following discharge. Review of Systems Unobtainable due to mental status [facility] Medical History Chronic diastolic heart failure (05/18/17) Dementia, Alzheimer's, with behavior disturbance Essential hypertension (09/12/13) History of left heart catheterization History of tobacco use Hyperlipidemia (01/03/13) Hyponatremia (02/13/18) Hypothyroidism (acquired) (01/03/13) Primary thrombocytosis (10/11/17) Restless leg syndrome Rheumatic aortic stenosis Surgical History Appendectomy (10/19/1952) History of aortic valve replacement LEFT HEART CARDIAC CATH Valve Replacement AORTIC Social History Smoking/Tobacco Use Status: Former Tobacco Use Alcohol Intake: never Drug use: Never Do you feel safe at home: Yes Do you feel safe in your relationship?: Yes Exam Narrative Exam Narrative: General: Elderly lady, appears younger than stated age, laying in bed with eyes closed. Did not awaken for visit. Her daughter, Kathie was present for the visit and provided the history. HEENT: Bruising noted under left eye, mucous membranes moist. Neck: Supple, no JVD. Cardiovascular: Heart has regular rate and rhythm, non-tachycardic, no murmur appreciated. Respiratory: Respirations appear even and unlabored, lung sounds clear to auscultation bilaterally. GI: + Bowel sounds, abdomen is nondistended, soft, does not appear to be tender on palpation. Extremities: No clubbing, cyanosis or edema. Results Last Vital Signs Temp 36.8 C 08/14/20 10:29 Pulse 90 08/14/20 10:29 Resp 16 08/14/20 10:29 BP 138/64 08/14/20 10:29 Pulse Ox 97 08/14/20 10:29 Labs Result diagrams: 08/14/20 07:25 08/14/20 07:25 Labs: Laboratory Results - last 24 hr 08/13/20 08/13/20 08/13/20 16:10 16:10 16:10 WBC 6.11 RBC 2.40 L Hgb 9.8 L Hct 28.1 L MCV 117.1 H MCH 40.8 H MCHC 34.9 RDW 13.3 Plt Count 692 H MPV 10.6 Immature Gran % 0.7 Neutrophils % 68.6 Lymphocytes % 12.8 Monocytes % 16.5 Eosinophils % 0.7 Basophils % 0.7 Nucleated RBC % 0 Absolute Neutrophils 4.20 Absolute Lymphocytes 0.78 L Absolute Monocytes 1.01 H Absolute Eosinophils 0.04 Absolute Basophils 0.04 RBC Morphology See below Anisocytosis 1+ Macrocytosis 2+ Ovalocytes 2+ Sodium 129 L Potassium 3.9 Chloride 93 L Carbon Dioxide 24.4 Anion Gap 11.6 H BUN 22 H Creatinine 1.58 H Estimated GFR/1.73 m2 31.23 Glucose 118 H Calcium 9.4 Magnesium 1.9 Total Bilirubin 0.7 AST 40 H ALT 26 Alkaline Phosphatase 79 Troponin I < 0.05 Total Protein 6.8 Albumin 4.2 TSH Urine Color Urine Clarity Urine pH Ur Specific [place] Urine Protein Urine Ketones Urine Blood Urine Nitrite Urine Bilirubin Urine Urobilinogen Ur Leukocyte Esterase Urine RBC Urine WBC Ur Epithelial Cells Urine Crystals Urine Bacteria Urine Casts Urine Mucus Ur Culture Indicated? Urine Glucose Urine Opiates Screen Negative Urine Methadone Screen Negative Ur Barbiturates Screen Negative Ur Tricyclics Screen Negative Ur Amphetamines Screen Negative U Benzodiazepines Scrn Negative Urine Cocaine Screen Negative Ur THC Screen Negative Ethyl Alcohol 3.7 COVID-19 PCR Nasopharyn COVID-19 PCR Ref Test Perform Site 08/13/20 08/13/20 08/13/20 16:10 16:32 16:50 WBC RBC Hgb Hct MCV MCH MCHC RDW Plt Count MPV Immature Gran % Neutrophils % Lymphocytes % Monocytes % Eosinophils % Basophils % Nucleated RBC % Absolute Neutrophils Absolute Lymphocytes Absolute Monocytes Absolute Eosinophils Absolute Basophils RBC Morphology Anisocytosis Macrocytosis Ovalocytes Sodium Potassium Chloride Carbon Dioxide Anion Gap BUN Creatinine Estimated GFR/1.73 m2 Glucose Calcium Magnesium Total Bilirubin AST ALT Alkaline Phosphatase Troponin I Total Protein Albumin TSH 0.16 L Urine Color Yellow Urine Clarity Clear Urine pH 6.0 Ur Specific [place] 1.020 Urine Protein 30 H Urine Ketones 15 H Urine Blood Negative Urine Nitrite Negative Urine Bilirubin Small H Urine Urobilinogen 1.0 H Ur Leukocyte Esterase Negative Urine RBC 0-2 Urine WBC 0-2 Ur Epithelial Cells Rare Urine Crystals Negative Urine Bacteria Rare Urine Casts 20-50 hyaline Urine Mucus Moderate Ur Culture Indicated? No Urine Glucose Negative Urine Opiates Screen Urine Methadone Screen Ur Barbiturates Screen Ur Tricyclics Screen Ur Amphetamines Screen U Benzodiazepines Scrn Urine Cocaine Screen Ur THC Screen Ethyl Alcohol COVID-19 PCR Negative Nasopharyn COVID-19 PCR Not Applicable Ref Test Perform Site [place] [facility] 08/14/20 08/14/20 07:25 07:25 WBC 3.96 L D RBC 2.21 L Hgb 9.0 L Hct 26.1 L MCV 118.1 H MCH 40.7 H MCHC 34.5 RDW 13.2 Plt Count 524 H MPV 10.7 Immature Gran % Neutrophils % Lymphocytes % Monocytes % Eosinophils % Basophils % Nucleated RBC % Absolute Neutrophils Absolute Lymphocytes Absolute Monocytes Absolute Eosinophils Absolute Basophils RBC Morphology Anisocytosis Macrocytosis Ovalocytes Sodium 131 L Potassium 3.7 Chloride 97 L Carbon Dioxide 25.3 Anion Gap 8.7 BUN 22 H Creatinine 1.04 H D Estimated GFR/1.73 m2 50.61 Glucose 91 Calcium 8.8 Magnesium Total Bilirubin AST ALT Alkaline Phosphatase Troponin I Total Protein Albumin TSH Urine Color Urine Clarity Urine pH Ur Specific [place] Urine Protein Urine Ketones Urine Blood Urine Nitrite Urine Bilirubin Urine Urobilinogen Ur Leukocyte Esterase Urine RBC Urine WBC Ur Epithelial Cells Urine Crystals Urine Bacteria Urine Casts Urine Mucus Ur Culture Indicated? Urine Glucose Urine Opiates Screen Urine Methadone Screen Ur Barbiturates Screen Ur Tricyclics Screen Ur Amphetamines Screen U Benzodiazepines Scrn Urine Cocaine Screen Ur THC Screen Ethyl Alcohol COVID-19 PCR Nasopharyn COVID-19 PCR Ref Test Perform Site
--- NOTE | 2020-08-14 12:32 | NCONE_ITS ---
Date of service: 08/14/20 Time of Service: 12:32 Assessment and Plan Assessment and plan (1) Dementia: Status: Chronic (2) Hallucinations: Status: Acute (3) Visual impairment: Status: Acute (4) Hearing loss: Status: Acute Assessment and plan: Ms. Delgado is an 84-year-old, right-handed woman who was admitted with increased agitation, hallucinations, and insomnia. By histor y, she appears to have a neurodegenerative process, aka dementia, complicated by her significant vision and hearing impairments. No obvious metabolic/infectious triggers for her acute downturn (sodium low but stable; Cr bumped but can't imagine that caused 1 week of symptoms...), but seems to be re sponding/recovering well in hospital. Agree with switching risperidone to seroquel for ease of use. Unclear what stage/type of dementia Cecilia has. She does not have any Parkinsonian features, so D with Lewy Bodies is essentially ruled out. I will plan to see her as an outpatient to perform further cognitive testing. Otherwise, unclear if daughter is able to care for her. Daughter appears to have significant confusion over her mother's diagnosis and treatment plans. Daughter was interested in at least temporary placement as she was unable to care for Cecilia this last week. I spent a significant amount of time discussing dementia, the different types, prognosis, Mihai Trejo with daughter Kathie. History of Present Illness History of Present Illness Chief Complaint: memory loss and hallucinations Narrative: Handedness: right. HPI: Ms. Delgado is an 84-year-old woman with a past medical history of hypertension, hypothyroidism, thrombocytosis, vitamin B12 deficiency, chronic hyponatremia, history of alcohol abuse, and vision and hearing loss (macular degeneration, cataracts, severe bilateral SN hearing loss). She also carries a diagnosis of Alzheimer's dementia with behavioral disturbance. She was admitted to [facility] with a 5 to 6-day history of increased confusion, insomnia, and visual and auditory hallucinations. In review of her prior records, it appears that she has had multiple hospitalizations and clinic visits for intermittent hallucinations going as far back as summer 2016. Her daughter Kathie is with her today. Kathie moved into [facility] house to help care for her about 5 years ago. Kathie notes Cecilia has had a slow cognitive decline since then, complicated by significant vision and hearing impairment. She can no longer cook and often leaves the stove on without cooking anything at all. She mostly sits around all day and does not engage in any of her usual activities. Cecilia's other daughter took over household managem ent/bills/bookkeeping approximately 5 years ago. She stopped driving 15 to 20 years ago because of her vision loss. Her visual and auditory hallucinations have increased over time and especially i n the last 1 year. She often talks to family members but can also talk with strangers, babies, and animals. She occasionally interacts with them and even tries to follow them. At times, she has been quite agitated as her daughter cannot see these images. By description it does not appear that she recognizes that these are hallucinations at all times. 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 Previous hallucinations and altered behavior were often associated with obvious metabolic triggers such as hyponatremia, UTI, and alcohol abuse. Kathie states that Cecilia no longer drinks alcohol. It should be noted that she had an alcohol level of 3.7 upon admission. Of note, July is the anniversary of her sisters ( in 2017) is a month in which she has notoriously struggled cognitively and emotionally in the past. She has chronic hyponatremia, more profound in the last 3 years. Her sodium was 129 upon admission which is not clearly out of the ordinary for her. Sodium has since corrected to 131. Further admission work-up was significant for creatinine of 1.58 which is corrected to 1.04. She had a TSH of 0.16 with a normal free T4 in March and a free T3 of 2.3 in July. She had a CT head upon admission which shows moderate generalized atrophy and chronic white matter changes. There is also a noted left insular hypodensity that may be artifact. I reviewed these images personally. Regarding her chronic hyponatremia, daughter Kathie did not understand that the patient was on fluid restriction into the last few weeks. Previously, she was allowing mother to drink as much juice and non-water beverages that she would like throughout the day. Currently she describes fluid restriction as 2 cups of coffee in the morning, 12 ounces of juice which she can sip on throughout the day and a glass of water at night. Cecilia was given Risperdal overnight and this morning to help with the hallucinations. She has not had any hallucinations since admission. Per daughter, she appears at baseline though somewhat sleepy. Consults Requesting physician: Marjan Gaviria Review of Systems All systems reviewed & are unremarkable except as noted in HPI and below PFSH Medical History Chronic diastolic heart failure (05/18/17) Dementia, Alzheimer's, with behavior disturbance Essential hypertension (09/12/13) History of left heart catheterization History of tobacco use Hyperlipidemia (01/03/13) Hyponatremia (02/13/18) Hypothyroidism (acquired) (01/03/13) Primary thrombocytosis (10/11/17) Restless leg syndrome Rheumatic aortic stenosis Surgical History Appendectomy (10/19/1952) History of aortic valve replacement LEFT HEART CARDIAC CATH Valve Replacement AORTIC Social History Smoking/Tobacco Use Status: Former Tobacco Use Alcohol Intake: never Drug use: Never Do you feel safe at home: Yes Do you feel safe in your relationship?: Yes Visit Medication and Allergies Active Medications Generic Name Dose Route Start Last Admin Trade Name Freq PRN Reason Stop Dose Admin Amlodipine Besylate 2.5 mg 08/14/20 08:30 08/14/20 10:32 Amlodipine 5 Mg Tab PO 2.5 mg DAILY ABILIO Administration Aspirin 81 mg 08/14/20 08:30 08/14/20 10:32 Aspirin E.C. 81 Mg Tabec PO 81 mg DAILY ABILIO Administration Cyanocobalamin 500 mcg 08/14/20 08:30 08/14/20 10:32 Cyanocobalamin 500 Mcg Tab PO 500 mcg DAILY ABILIO Administration Dimethicone/Zinc Oxide 0 gm 08/13/20 18:04 Jannie Protect Cream 142 Gm Tube TP PRN PRN Hydroxyurea 1,000 mg 08/14/20 08:30 08/14/20 11:41 Hydroxyurea 500 Mg Cap PO Not Given [id number] ABILIO Hydroxyurea 1,500 mg 08/15/20 08:30 Hydroxyurea 500 Mg Cap PO [id number]@0830 ABILIO IV Miscellaneous Supplies 1 each 08/13/20 16:00 Iv Access IV DIRECTED ABILIO Lisinopril 10 mg 08/14/20 08:30 08/14/20 10:31 Lisinopril 10 Mg Tab PO 10 mg DAILY ABILIO Administration Quetiapine Fumarate 25 mg 08/14/20 22:00 Quetiapine 25 Mg Tab PO HS [facility] Sodium Chloride 0 ml 08/13/20 15:51 08/13/20 16:48 Normal Saline Flush 10 Ml Syr IVP 20 ml PRN PRN Administration Allergies Iodinated Contrast Media [Iodinated Contrast- Oral and IV Dye] Allergy (Intermediate, Verified 07/17/20 10:47) Skin Rash Exam Narrative Exam Narrative: Physical Exam: Gen: Patient of apparent stated age, NAD Head and face: no facial or cranial abnormalities Neck: Supple, no meningismus, no occipital tenderness CV: + S1, S2, RRR, no murmur Resp: CTA B/L Abd: soft, nontender, nondistended Ext: No edema. No clubbing or cyanosis. No bony deformity. Neuro Exam: Language: fluency, naming, and repetition intact; able to follow one-step commands accurately at times (not consistently) Mental Status: AAO to self, hospital in [facility] (did not know name of hospital) and month (did not know year); unable to contribute to current or remote events; could not tell me what town she lived in or whom she lived with (lives with daughter Kathie who was in the room with us; stated she might live with a roommate) Speech: no dysarthria Cranial nerves: Funduscopy: not performed CN II: visual bailey impaired in upper quadrants - unable to finger count accurately there CN III, IV, : extraocular movements intact, no nystagmus, pupils symmetric and reactive to light CN V: face sensation appears intact to PP CN VII: no facial asymmetry noted CN VIII: hearing intact bilaterally CN IX, X: palate rises symmetrically CN XI: trapezius/SCM 5/5 bilaterally CN XII: protrudes tongue symmetrically Sensory: appears intact to PP throughout; testing difficulty due to cognitive issues Motor: bulk and tone intact. No cogwheel rigidity. Fine motor movements intact bilaterally. No pronator drift. Appears full strength throughout. Reflexes: hyporeflexic throughout; toes neutral bilaterally; Coordination: FTN and HTS intact bilaterally Gait: deferred Results Last Vital Signs Temp 36.8 C 08/14/20 10:29 Pulse 90 08/14/20 10:29 Resp 16 08/14/20 10:29 BP 138/64 08/14/20 10:29 Pulse Ox 97 08/14/20 10:29 Labs Result diagrams: 08/14/20 07:25 08/14/20 07:25 Labs: Laboratory Results - last 24 hr 08/13/20 08/13/20 08/13/20 16:10 16:10 16:10 WBC 6.11 RBC 2.40 L Hgb 9.8 L Hct 28.1 L MCV 117.1 H MCH 40.8 H MCHC 34.9 RDW 13.3 Plt Count 692 H MPV 10.6 Immature Gran % 0.7 Neutrophils % 68.6 Lymphocytes % 12.8 Monocytes % 16.5 Eosinophils % 0.7 Basophils % 0.7 Nucleated RBC % 0 Absolute Neutrophils 4.20 Absolute Lymphocytes 0.78 L Absolute Monocytes 1.01 H Absolute Eosinophils 0.04 Absolute Basophils 0.04 RBC Morphology See below Anisocytosis 1+ Macrocytosis 2+ Ovalocytes 2+ Sodium 129 L Potassium 3.9 Chloride 93 L Carbon Dioxide 24.4 Anion Gap 11.6 H BUN 22 H Creatinine 1.58 H Estimated GFR/1.73 m2 31.23 Glucose 118 H Calcium 9.4 Magnesium 1.9 Total Bilirubin 0.7 AST 40 H ALT 26 Alkaline Phosphatase 79 Troponin I < 0.05 Total Protein 6.8 Albumin 4.2 TSH Urine Color Urine Clarity Urine pH Ur Specific [place] Urine Protein Urine Ketones Urine Blood Urine Nitrite Urine Bilirubin Urine Urobilinogen Ur Leukocyte Esterase Urine RBC Urine WBC Ur Epithelial Cells Urine Crystals Urine Bacteria Urine Casts Urine Mucus Ur Culture Indicated? Urine Glucose Urine Opiates Screen Negative Urine Methadone Screen Negative Ur Barbiturates Screen Negative Ur Tricyclics Screen Negative Ur Amphetamines Screen Negative U Benzodiazepines Scrn Negative Urine Cocaine Screen Negative Ur THC Screen Negative Ethyl Alcohol 3.7 COVID-19 PCR Nasopharyn COVID-19 PCR Ref Test Perform Site 08/13/20 08/13/20 08/13/20 16:10 16:32 16:50 WBC RBC Hgb Hct MCV MCH MCHC RDW Plt Count MPV Immature Gran % Neutrophils % Lymphocytes % Monocytes % Eosinophils % Basophils % Nucleated RBC % Absolute Neutrophils Absolute Lymphocytes Absolute Monocytes Absolute Eosinophils Absolute Basophils RBC Morphology Anisocytosis Macrocytosis Ovalocytes Sodium Potassium Chloride Carbon Dioxide Anion Gap BUN Creatinine Estimated GFR/1.73 m2 Glucose Calcium Magnesium Total Bilirubin AST ALT Alkaline Phosphatase Troponin I Total Protein Albumin TSH 0.16 L Urine Color Yellow Urine Clarity Clear Urine pH 6.0 Ur Specific [place] 1.020 Urine Protein 30 H Urine Ketones 15 H Urine Blood Negative Urine Nitrite Negative Urine Bilirubin Small H Urine Urobilinogen 1.0 H Ur Leukocyte Esterase Negative Urine RBC 0-2 Urine WBC 0-2 Ur Epithelial Cells Rare Urine Crystals Negative Urine Bacteria Rare Urine Casts 20-50 hyaline Urine Mucus Moderate Ur Culture Indicated? No Urine Glucose Negative Urine Opiates Screen Urine Methadone Screen Ur Barbiturates Screen Ur Tricyclics Screen Ur Amphetamines Screen U Benzodiazepines Scrn Urine Cocaine Screen Ur THC Screen Ethyl Alcohol COVID-19 PCR Negative Nasopharyn COVID-19 PCR Not Applicable Ref Test Perform Site [place] [facility] 08/14/20 08/14/20 07:25 07:25 WBC 3.96 L D RBC 2.21 L Hgb 9.0 L Hct 26.1 L MCV 118.1 H MCH 40.7 H MCHC 34.5 RDW 13.2 Plt Count 524 H MPV 10.7 Immature Gran % Neutrophils % Lymphocytes % Monocytes % Eosinophils % Basophils % Nucleated RBC % Absolute Neutrophils Absolute Lymphocytes Absolute Monocytes Absolute Eosinophils Absolute Basophils RBC Morphology Anisocytosis Macrocytosis Ovalocytes Sodium 131 L Potassium 3.7 Chloride 97 L Carbon Dioxide 25.3 Anion Gap 8.7 BUN 22 H Creatinine 1.04 H D Estimated GFR/1.73 m2 50.61 Glucose 91 Calcium 8.8 Magnesium Total Bilirubin AST ALT Alkaline Phosphatase Troponin I Total Protein Albumin TSH Urine Color Urine Clarity Urine pH Ur Specific [place] Urine Protein Urine Ketones Urine Blood Urine Nitrite Urine Bilirubin Urine Urobilinogen Ur Leukocyte Esterase Urine RBC Urine WBC Ur Epithelial Cells Urine Crystals Urine Bacteria Urine Casts Urine Mucus Ur Culture Indicated? Urine Glucose Urine Opiates Screen Urine Methadone Screen Ur Barbiturates Screen Ur Tricyclics Screen Ur Amphetamines Screen U Benzodiazepines Scrn Urine Cocaine Screen Ur THC Screen Ethyl Alcohol COVID-19 PCR Nasopharyn COVID-19 PCR Ref Test Perform Site
[2020-08-14 16:00] VITALS: BP 144/72; PULSE 80; RESP 18; TEMP 36.5; O2SAT 98
--- NOTE | 2020-08-14 16:04 | DI.VRAD_ITS ---
PROCEDURE INFORMATION: Exam: XR Chest, 2 Views Exam date and time: 08/13/2020 4:42 PM Age: 84 years old Clinical indication: Other: Confusion TECHNIQUE: Imaging protocol: XR of the chest Views: 2 views. COMPARISON: No relevant prior studies available. FINDINGS: Tubes, catheters and devices: There are sternal wires consistent with previous sternotomy incision. Lungs: Linear atelectasis in the left lung base. Subtle patchy airspace opacity in the right lung base. Remainder of the lungs are clear. Pleural space: Unremarkable. No pleural effusion. No pneumothorax. Heart/Mediastinum: Prior aortic valve replacement. The heart is mildly enlarged. Bones/joints: No acute abnormality or aggressive osseous lesion. IMPRESSION: Question of mild developing airspace disease versus nodularity in the right lung base. Consider developing infectious pneumonia in the appropriate clinical setting. Dictated and Authenticated by: Clifton Wilson MD. Ordering:LUIS Light MD
--- NOTE | 2020-08-14 16:04 | DI.VRAD_ITS ---
PROCEDURE INFORMATION: Exam: CT Head Without Contrast Exam date and time: 08/13/2020 4:09 PM Age: 84 years old Clinical indication: Other: Confusion TECHNIQUE: Imaging protocol: Computed tomography of the head without contrast. COMPARISON: CT HEAD WO 04/12/2020 10:48 AM FINDINGS: Brain: Age related brain involution is present. No acute intracranial hemorrhage, mass effect, midline shift, or brain herniation. Diffuse subcortical and periventricular white matter hypodensities are most in favor with chronic small vessel disease. Cerebral ventricles: There is ex vacuo ventriculomegaly. Bones/joints: Unremarkable. No acute fracture. Paranasal sinuses: Visualized sinuses are unremarkable. No fluid levels. Mastoid air cells: Visualized mastoid air cells are well aerated. Orbital cavity: There is asymmetriy of the lenses consistent with right intraocular lens prosthesis. Vasculature: Intracranial atherosclerosis is present. Soft tissues: Unremarkable. IMPRESSION: Negative for acute intracranial pathology. Dictated and Authenticated by: Clifton Wilson MD. Ordering:LUIS Light MD
[2020-08-14] MEDS: QUEtiapine 25 MG TAB PO (21:10)
[2020-08-14 23:10] VITALS: BP 92/57; PULSE 71; RESP 17; TEMP 36.7; O2SAT 97
[2020-08-14 23:53] VITALS: BP 104/60
[2020-08-15] MEDS: Hydroxyurea 500 MG CAP 1500 MG PO (08:11)
[2020-08-15] MEDS: Lisinopril 10 MG TAB PO (08:11)
[2020-08-15] MEDS: Cyanocobalamin 500 MCG TAB PO (08:12)
[2020-08-15] MEDS: Aspirin E.C. 81 MG TABEC PO (08:12)
[2020-08-15 08:13] VITALS: BP 124/73; PULSE 87; RESP 18; TEMP 37; O2SAT 98
--- NOTE | 2020-08-15 10:37 | W.PM.PROGNOT ---
Date of Service Date of service: 08/15/20 Time of Service: 10:37 Assessment and Plan Assessment and plan (1) Dementia, Alzheimer's, with behavior disturbance: Status: Acute Assessment and plan: seen by neurology, tolerating seroquel well, no behavioral issues, safety precautions (2) Chronic hyponatremia: Status: Acute Assessment and plan: stable. will implement fluid restriction, (3) Hallucinations: Status: Acute Assessment and plan: denies at this time. will monitor (4) Hypothyroidism: Status: Chronic Assessment and plan: TSH low at 0.16, will reduce dose of synthroid (5) Primary thrombocytosis: Status: Acute Assessment and plan: will continue hydroxyurea (6) Discharge planning issues: Status: Acute Assessment and plan: case management consultation, will place referral for [facility] [place]. plan of care discussed with Dr segura who is in agreement Subjective Subjective Patient reports: no new complaints, feels better, voiding w/o difficulty and afebrile; denies nausea, vomiting and shortness of breath Interval history since last seen: slept well, eating and drinking some. Exam Const General: cooperative and no acute distress Nutritional Appearance: average body habitus Orientation: alert, awake, oriented to person, oriented to place and confused HENCA Head: normal to inspection, normocephalic and atraumatic Mouth: oral mucosae normal Resp Effort & Inspection: normal respiratory effort Auscultation: clear to auscultation bilaterally Cardio Rate: regular rate Rhythm: regular rhythm GI Inspection: normal to inspection Palpation: soft Auscultation: normal bowel sounds Skin General skin exam: no rashes or lesions noted Neuro General: patient alert, patient awake, moves all extremities, no focal motor deficits and patient confused Extrem General: normal to inspection, full ROM and no pedal edema Psych Appearance: grossly normal Speech and Movement: speech and movement normal Mood: congruent mood Affect: normal affect Attitude: cooperative Thought Content: hallucinations (denies here) Insight: limited Judgment: limited Objective Last Vital Signs Temp 37.0 C 08/15/20 08:13 Pulse 87 08/15/20 08:13 Resp 18 08/15/20 08:13 BP 124/73 08/15/20 08:13 Pulse Ox 98 08/15/20 08:13
--- NOTE | 2020-08-15 12:48 | PHA.REVIEW ---
Pharmacy Admission Review - Admission Clinical Review (Last Updated 08/15/20 @ 11:44 by Danna Willard NP) Palliative care patient (Acute) Primary thrombocytosis (Acute 10/11/17) Discharge planning issues (Acute) Hearing loss (Acute) Visual impairment (Acute) Dementia, Alzheimer's, with behavior disturbance (Acute) Altered mental status (Acute) Chronic hyponatremia (Acute) Hallucinations (Acute) Iodinated Contrast Media [Iodinated Contrast- Oral and IV Dye] Allergy (Intermediate, Verified 07/17/20 10:47) Skin Rash Height 5 ft 4 in Weight 68.946 kg - Renal Dosing Renal Dosing: BUN 22 mg/dL (7-18) H 08/14/20 07:25 Creatinine 1.04 mg/dL (0.55-1.02) H D 08/14/20 07:25 Medications needing adjustments: Reviewed (Crcl ~35.3 mL/min current meds okay) - Anticoagulation Anticoagulation: Hgb 9.0 g/dL (11.2-15.7) L 08/14/20 07:25 Hct 26.1 % (36.0-46.0) L 08/14/20 07:25 Plt Count 524 10^3/uL (130-400) H 08/14/20 07:25 Creatinine 1.04 mg/dL (0.55-1.02) H D 08/14/20 07:25 DVT Prohphylaxis: Reviewed (pt falls frequently per palliative note) - Opiate Usage Evaluate Pain Scale/Pains Meds: N/A - Relevant Labs Sodium 131 mmol/L (136-145) L 08/14/20 07:25 Potassium 3.7 mmol/L (3.5-5.1) 08/14/20 07:25 Chloride 97 mmol/L (98-107) L 08/14/20 07:25 Magnesium 1.9 mg/dL (1.8-2.4) 08/13/20 16:10 - DM Control DM Control: Glucose 91 mg/dL (74-106) 08/14/20 07:25 Insulin Dosing: N/A - Heart Failure/GA Heart Failure/GA: Troponin I < 0.05 ng/mL (<0.06) 08/13/20 16:10 EF%, SANDY's, B-Blockers, Diuretics: Reviewed - BP Control BP Control: Blood Pressure 124/73 If elevated: N/A - Qtc Review If Elevated: N/A (QTc 438) - IV to PO Switch IV Medications: Reviewed - Home Meds Home Med List reviewed: Reviewed (Separate admin of multivitamin from levothyroxine. Multiple forms of vitamin D increases the risk of toxicity.) Relevent Home Meds Not ordered & why?: cholecalciferol, I-caps, levothyroxine (on hold), meclizine (PRN), triamcinolone - Current meds Current Medication Order Review: Reviewed - Comments Comments/Follow Ups: Watch VS, labs and for med changes
--- NOTE | 2020-08-15 14:15 | CHAPLAIN ---
Shayla was sitting near the window in her room, looking out the window. She engaged in a conversation conversation with, but seemed to have difficulty hearing. She accepted a cup of coffee when I offered it to her. We talked mostly about the weather, the rain day, the earlier foliage color. Shayla seemed to be content to be here and said her daughter would be here this afternoon.
--- NOTE | 2020-08-15 15:13 | W.NUTRFU ---
Date of service: 08/15/20 Time of Service: 15:13 Nutritional Follow up NOTE: 84 year old female admitted with AMS and dementia. BMi wnl for age. Following regular meal plan with adequate intake. Not at risk for nutritional decline at this time. will continue to follow. Time Spent in Nutritional Counseling and Treatment: 0 time spent face to face
--- NOTE | 2020-08-15 15:34 | PDOC.CMPRO ---
- If Service Date Differs Date of service: 08/15/20 Time of Service: 15:34 Care Management Progress Note S/O:Shayla remains acute, her thyroid medication is on hold and she was started on Seroquel for symptom management. [facility] does not have a bed today they will review and follow up on Tuesday. If she is stable over the weekend she can return home with her daughter vs [facility]. She appears well rested today CM met with her and her daughter Kathie in the room. CM provided an update and daughter is comfortable with the plan for return home on Tuesday if stable. If she continues to have difficulty with hallucinations [facility] could take her at the beginning of the week. A:Shayla is an 84 year old female that lives with her daughter admitted for agitation and hallucinations. P:Shayla will plan to be discharged to home vs [facility] on Tuesday. Daughter will transport if discharged home vs ambulance if [facility]. CM to continue to coordinated disposition.
[2020-08-15 15:51] VITALS: BP 145/77; PULSE 81; RESP 12; TEMP 37.1; O2SAT 95
[2020-08-15] MEDS: amLODIPine 5 MG TAB 2.5 MG PO (21:28)
[2020-08-15] MEDS: QUEtiapine 25 MG TAB PO (21:29)
[2020-08-16 05:03] VITALS: BP 164/90; PULSE 90; RESP 18; TEMP 36.9; O2SAT 97
[2020-08-16 07:15] VITALS: BP 112/71; PULSE 84; RESP 16; TEMP 36.4; O2SAT 99
[2020-08-16] MEDS: Cyanocobalamin 500 MCG TAB PO (07:35)
[2020-08-16] MEDS: Aspirin E.C. 81 MG TABEC PO ×2 (07:35→20:27)
[2020-08-16] MEDS: Lisinopril 10 MG TAB PO (07:35)
[2020-08-16] MEDS: Hydroxyurea 500 MG CAP 1000 MG PO (10:37)
--- NOTE | 2020-08-16 12:25 | W.PM.PROGNOT ---
Date of Service Date of service: 08/16/20 Time of Service: 12:26 Assessment and Plan Assessment and plan (1) Dementia, Alzheimer's, with behavior disturbance: Start date: 08/16/20 Start time: 12:29 Status: Acute Assessment and plan: seen by neurology, tolerating seroquel well, no behavioral issues, safety precautions Qualifiers: Alzheimer's disease onset: other onset Qualified Code(s): G30.8 - Other Alzheimer's disease; F02.81 - Dementia in other diseases classified elsewhere with behavioral disturbance (2) Chronic hyponatremia: Start date: 08/16/20 Start time: 12:29 Status: Acute Assessment and plan: stable. will implement fluid restriction, (3) Hallucinations: Start date: 08/16/20 Start time: 12:30 Status: Acute Assessment and plan: Endorses having hallucinations overnight.She does feel they are improving (4) Hypothyroidism: Start date: 08/16/20 Start time: 12:30 Status: Chronic Assessment and plan: TSH low at 0.16, will reduce dose of synthroid Qualifiers: Hypothyroidism type: unspecified Qualified Code(s): E03.9 - Hypothyroidism, unspecified (5) Primary thrombocytosis: Start date: 08/16/20 Start time: 12:30 Status: Acute Assessment and plan: will continue hydroxyurea (6) Discharge planning issues: Start date: 08/16/20 Start time: 12:31 Status: Acute Assessment and plan: case management consultation, will place referral for [facility]. plan of care discussed with Dr sánchez who is in agreement Subjective Subjective Patient reports: no new complaints Interval history since last seen: AA0x3 today. She is in good spirits. She does endorse having hallucinations at night, making her want to sleep during the day. The seroquel appears to be working well for her. Both palliative and neurology are involved with patient. Plan for [facility] on Tuesday. Exam Narrative Exam Narrative: General: Elderly lady, appears younger than stated age, sitting up in bed on the phone HEENT: Bruising noted under left eye, mucous membranes moist. Neck: Supple, no JVD. Cardiovascular: Heart has regular rate and rhythm, non-tachycardic, no murmur appreciated. Respiratory: Respirations appear even and unlabored, lung sounds clear to auscultation bilaterally. GI: + Bowel sounds, abdomen is nondistended, soft, does not appear to be tender on palpation. Extremities: No clubbing, cyanosis or edema. Objective Last Vital Signs Temp 36.4 C L 08/16/20 07:15 Pulse 84 08/16/20 07:15 Resp 16 08/16/20 07:15 BP 112/71 08/16/20 07:15 Pulse Ox 99 08/16/20 07:15
[2020-08-16 15:47] VITALS: BP 139/77; PULSE 85; RESP 18; TEMP 37; O2SAT 97
--- NOTE | 2020-08-16 17:29 | CMPROGNOTE_ITS ---
Care Management Progress Note S/O: Shayla continues to require close monitoring; per RN report, she continues to have hallucinations but presented through the night without behavioral disturbance. CM continues to follow. A: 84 year old female admitted to [facility] 08/13/20 with agitation and hallucinations. P: Shayla will discharge to home vs [facility] on 08/18/20. Transport per disposition; private vehicle with daughterKathie to home. If admitted to [facility], Shayla will transport via EMS; coordinated by CM. CM continues to follow; no anticipated changes to discharge plan prior to Tuesday at this time.
--- NOTE | 2020-08-16 17:29 | PDOC.CMPRO ---
Care Management Progress Note S/O: Shayla continues to require close monitoring; per RN report, she continues to have hallucinations but presented through the night without behavioral disturbance. CM continues to follow. A: 84 year old female admitted to [facility] 08/13/20 with agitation and hallucinations. P: Shayla will discharge to home vs [facility] on 08/18/20. Transport per disposition; private vehicle with daughterKathie to home. If admitted to [facility], Shayla will transport via EMS; coordinated by CM. CM continues to follow; no anticipated changes to discharge plan prior to Tuesday at this time.
[2020-08-16] MEDS: LORazepam 0.5 MG TAB PO (18:30)
[2020-08-16] MEDS: QUEtiapine 25 MG TAB PO (21:08)
[2020-08-16] MEDS: amLODIPine 5 MG TAB 2.5 MG PO (21:08)
[2020-08-17 03:30] VITALS: BP 123/64; PULSE 91; RESP 17; TEMP 36.5; O2SAT 97
[2020-08-17] MEDS: Cyanocobalamin 500 MCG TAB PO (08:12)
[2020-08-17] MEDS: Lisinopril 10 MG TAB PO (08:12)
[2020-08-17] MEDS: Aspirin E.C. 81 MG TABEC PO ×2 (08:12→19:18)
[2020-08-17 08:13] VITALS: BP 162/88; PULSE 92; RESP 15; TEMP 36.9; O2SAT 98
[2020-08-17 08:20] LABS: Anion Gap 6.5 mmol/L (3-11); BUN 21 mg/dL (7-18); CO2 28.5 mmol/L (21.0-32.0); CREATININE 0.79 mg/dL (0.55-1.02); Calcium 8.6 mg/dL (8.5-10.1); Chloride 99 mmol/L (98-107); Glucose 94 mg/dL (74-106); Potassium 4.2 mmol/L (3.5-5.1); Sodium 134 mmol/L (136-145)
--- NOTE | 2020-08-17 08:39 | PDOC.CMPRO ---
Care Management Progress Note S/O: Shayla continues to require close monitoring; per RN report, she continues to have hallucinations and required PRN ativan last night due to agitation. RN notes she is more oriented after sufficient sleep, and is doing well this morning. CM continues to follow. A: 84 year old female admitted to [facility] 08/13/20 with agitation and hallucinations. P: Shayla will discharge to home vs [facility] on 08/18/20. Transport per disposition; private vehicle with daughterKathie to home. If admitted to [facility], Shayla will transport via EMS; coordinated by CM. CM continues to follow; no anticipated changes to discharge plan prior to Tuesday at this time.
[2020-08-17 08:58] LABS: Vitamin B12 1327 pg/mL (193-986)
[2020-08-17] MEDS: Thiamine 100 MG TAB PO (10:56)
--- NOTE | 2020-08-17 10:57 | W.PM.PROGNOT ---
Date of Service Date of service: 08/17/20 Time of Service: 10:58 Assessment and Plan Assessment and plan (1) Dementia, Alzheimer's, with behavior disturbance: Start date: 08/17/20 Start time: 11:02 Status: Acute Assessment and plan: Seen by neuro, and followed by palliative. Appears to do well on seroquel No behavior issues at this time. Continue to monitor. AAOx 3 she does have hallucinations and is able to verbalize them. Question hydroxurea. Qualifiers: Alzheimer's disease onset: other onset Qualified Code(s): G30.8 - Other Alzheimer's disease; F02.81 - Dementia in other diseases classified elsewhere with behavioral disturbance (2) Chronic hyponatremia: Start date: 08/17/20 Start time: 11:04 Status: Acute Assessment and plan: stable. will implement fluid restriction, (3) Hallucinations: Start date: 08/17/20 Start time: 11:05 Status: Acute Assessment and plan: Endorses having hallucinations overnight.She does feel they are improving (4) Hypothyroidism: Start date: 08/17/20 Start time: 11:05 Status: Chronic Assessment and plan: TSH low at 0.16, will reduce dose of synthroid Qualifiers: Hypothyroidism type: unspecified Qualified Code(s): E03.9 - Hypothyroidism, unspecified (5) Primary thrombocytosis: Start date: 08/17/20 Start time: 11:05 Status: Acute Assessment and plan: will continue hydroxyurea, question if this is causing or worsening hallucinations (6) Discharge planning issues: Start date: 08/17/20 Start time: 11:05 Status: Acute Assessment and plan: case management consultation, will place referral for [facility]. plan of care discussed with Dr sánchez who is in agreement Subjective Subjective Patient reports: no new complaints Interval history since last seen: Per nursing she did have hallucinations last night. Question if hydroxurea potential cause of this, there appears to be a trend with worsening after receiving medication. Also question alcohol withdrawal. She did come in with ETOH level 3.7, in any case will add trazodone to evening regimen, speak to palliative about seroquel dosing. And add multivitamin with thiamine. Exam Narrative Exam Narrative: General: Elderly lady, appears younger than stated age, sitting up in bed AAOx 3 this morning. Able to recall hallucinations HEENT: Bruising noted under left eye, mucous membranes moist., Exophthalmos bilaterally Neck: Supple, no JVD. Cardiovascular: Heart has regular rate and rhythm, non-tachycardic, no murmur appreciated. Respiratory: Respirations appear even and unlabored, lung sounds clear to auscultation bilaterally. GI: + Bowel sounds, abdomen is nondistended, soft, does not appear to be tender on palpation. Extremities: No clubbing, cyanosis or edema. Objective Last Vital Signs Temp 36.9 C 08/17/20 08:13 Pulse 92 H 08/17/20 08:13 Resp 15 08/17/20 08:13 BP 162/88 H 08/17/20 08:13 Pulse Ox 98 08/17/20 08:13 Laboratory Results - last 24 hr 08/17/20 08/17/20 08:00 08:00 Sodium 134 L Potassium 4.2 Chloride 99 Carbon Dioxide 28.5 Anion Gap 6.5 BUN 21 H Creatinine 0.79 Estimated GFR/1.73 m2 >= 60.00 Glucose 94 Calcium 8.6 Vitamin B12 1327 H
[2020-08-17 15:38] VITALS: BP 159/88; PULSE 85; RESP 15; TEMP 37.3; O2SAT 97
[2020-08-17] MEDS: Hydroxyurea 500 MG CAP 1000 MG PO (19:18)
[2020-08-17] MEDS: QUEtiapine 25 MG TAB PO (19:21)
[2020-08-17] MEDS: amLODIPine 5 MG TAB 2.5 MG PO (19:21)
[2020-08-18 05:01] VITALS: BP 98/62; PULSE 89; RESP 14; TEMP 36.9; O2SAT 95
[2020-08-18 07:42] VITALS: BP 116/69; PULSE 85; RESP 17; TEMP 36; O2SAT 96
[2020-08-18] MEDS: Multivitamin TAB 1 TAB PO (08:17)
[2020-08-18] MEDS: Cyanocobalamin 500 MCG TAB PO (08:18)
[2020-08-18] MEDS: Hydroxyurea 500 MG CAP PO (08:18)
[2020-08-18] MEDS: Lisinopril 10 MG TAB PO (08:18)
[2020-08-18] MEDS: Thiamine 100 MG TAB PO (08:18)
[2020-08-18] MEDS: Aspirin E.C. 81 MG TABEC PO (08:18)
--- NOTE | 2020-08-18 11:04 | PDOC.CMDIS ---
- If Service Date Differs Date of service: 08/18/20 Time of Service: 11:04 LACE Index Scoring Tool - Questions: Length of Stay (in days): 4 - 6 Acuity (Admit via E.D.?): Yes Comorbidities: Dementia E.D. Visits: 1 - Answers: Total Score: 11 Risk of Readmission: High Risk Care Management Discharge Reason for Hospitalization: Agitation, hallucinations Discharge Plan: Shayla will be discharged home with her daughter today, daughter does not want to pursue [facility], EVELINE did assist in completion of LTM application. EVELINE contacted palliative care and requested a home visit by Danna in the next two weeks. Plan to manage her medications has been put into place she will need to have a follow up scheduled with primary care provider. New provider is Heaven Morin. Patient/Family Education Needs: Discharge education, limitations and follow up plan of care including medication management.
--- NOTE | 2020-08-18 11:19 | DSE_ITS ---
Date of service: 08/18/20 Time of Service: : DS: Diagnosis Discharge Diagnosis (1) Dementia, Alzheimer's, with behavior disturbance: Start date: 08/18/20 Start time: : Status: Acute Asessment and Plan: She was placed on seroquel and trazodone for sleep. She slept well last night. She states she did not have any hallucinations. Her daughter states she gets worse around 1-2. Will schedule seroquel for noon, am as needed and will start low dose mirtazapem for sleep with added seroquel as needed She is being discharged home Palliative care will follow at home Follow up with Neurology in 4-6 weeks (2) Hallucinations: Start date: 08/18/20 Start time: 11: Status: Acute Asessment and Plan: Improving. see above (3) Chronic hyponatremia: Start date: 08/18/20 Start time: 11:28 Status: Acute Asessment and Plan: stable, continue fluid restriction (4) Hypothyroidism: Start date: 08/18/20 Start time: : Status: Chronic Asessment and Plan: Will half synthroid dose. She will need follow up in a week with PCP and they can then increase dose if needed. (5) Primary thrombocytosis: Start date: 08/18/20 Start time: 11:29 Status: Acute Asessment and Plan: Continue hydroxurea. Above case discussed with Dr. Dunn he is in agreement with the plan. Discharge Plan Disposition Patient Disposition: HOME Condition: Stable Discharge Details Reason For Visit: AGITATION, HALLUCINATIONS Admit Date/Time: 08/13/20 18:04 Admit Provider: Kalyan Howard Attending Provider: Kalyan Howard Primary Care Provider: Heaven oMrin Hospital Course Hospital Course: Ms. Delgado is an 84-year-old woman with a past medical history of hypertension, hypothyroidism, thrombocytosis, vitamin B12 deficiency, chronic hyponatremia, history of alcohol abuse, and vision and hearing loss (macular degeneration, cataracts, severe bilateral SN hearing loss). She also carries a diagnosis of Alzheimer's dementia with behavioral disturbance. She was admitted to [facility] with a 5 to 6-day history of increased confusion, insomnia, and visual and auditory hallucinations. She was seen by Dr. Villareal from neurology who recommended seroquel. She was switched from risperidone to seroquel and has minimal hallucinations. Last night she slept well she states. Her daughter mentioned today that she usually hits her worst confusion and hallucinations around 1-2. She did well with seroquel. Trazodone ordered for sleep as well, though per nursing she did not take a dose last night and per patient did not have any bad dreams so that was good. Her family prefers that she be discharged home vs [facility]. Therefore she is being disc harged home. I will schedule her seroquel for noon with a prn dose in am and at HS. Will trial mirtazapime as well for sleep at night and seroquel as needed. Palliative will follow up with her at home this week and she can follow up with Neurology as an outpatient in 4-6 weeks. She denies CP, SOB, N/V/D/ Home Meds and New Rx's Prescriptions: New lorazepam 0.5 mg Tablet 0.25 mg PO Q6H PRN PRNQty: 10 RF: 0 quetiapine 25 mg Tablet 25 mg PO HS Qty: 20 RF: 0 thiamine mononitrate (vit B1) [Vitamin B-1 (mononitrate)] 100 mg Tablet 100 mg PO DAILY Qty: 30 RF: 0 quetiapine [Seroquel] 25 mg tablet 25 mg PO DAILY@12 Qty: 20 RF: 0 mirtazapine 15 mg tablet 15 mg PO QHS Qty: 20 RF: 0 quetiapine [Seroquel] 25 mg tablet 25 mg PO BID PRN PRNQty: 30 RF: 0 Continued hydroxyurea [Hydrea] 500 mg capsule See Rx Instructions PO .COMPLEX Qty: 90 RF: 3 cyanocobalamin (vitamin B-12) [Vitamin B-12] 500 MCG tablet 500 mcg PO .DAILY @ 1200 RF: 0 cholecalciferol (vitamin D3) 1,000 UNIT tablet 1,000 unit PO .DAILY @ 1200 RF: 0 I-Caps 1 EACH capsule 1 ea PO .DAILY @ 1200 RF: 0 triamcinolone acetonide 15 GM cream 15 % Topical BID Qty: 30 RF: 3 amlodipine 5 mg tablet 2.5 mg PO DAILY Qty: 90 RF: 3 lisinopril 10 mg tablet 10 mg PO DAILY Qty: 90 RF: 4 aspirin [Aspir-81] 81 MG tablet,delayed release (DR/EC) 81 mg PO DAILY Qty: 100 RF: 0 meclizine 12.5 MG tablet 12.5 mg PO Q6H PRN (Reason: dizziness) Qty: 20 RF: 1 Discharge Instructions Instructions: Hallucinations (DC) Additional Instructions: Take seroquel daily at noon. If needed you may be able to take an added dose in the morning prior to noon dose and in the evening prior to bedtime dose. Take for hallucinations and agitation. Follow up with your PCP in 1-2 weeks Follow up with Palliative this week Follow up with Neurology in 4-6 weeks Take mirtazipime at bedtime. STOP DRINKING ALCOHOL Limit fluid intake. Activity:: Activity as Tolerated Equipment/Supplies:: No Equipment Needed Diet:: As Tolerated Discharge Orders Discharge Orders: Discharge Order (Routine); Ordered 08/18/20 Ordered By: Rosmery Page DS: Summary Status at Discharge Functional status at discharge: independent ambulation Overall status at discharge: patient is progressing back to baseline Mental Status: mental status grossly normal Speech and Movement: speech and movement normal Mood: congruent mood Affect: normal affect Exam Narrative Exam Narrative: General: Elderly lady, appears younger than stated age, sitting up in AAOx 3 this morning. HEENT: Bruising noted under left eye, mucous membranes moist., Exophthalmos bilaterally Neck: Supple, no JVD. Cardiovascular: Heart has regular rate and rhythm, non-tachycardic, no murmur appreciated. Respiratory: Respirations appear even and unlabored, lung sounds clear to auscultation bilaterally. GI: + Bowel sounds, abdomen is nondistended, soft, does not appear to be tender on palpation. Extremities: No clubbing, cyanosis or edema. Psych Mental Status: mental status grossly normal Speech and Movement: speech and movement normal Mood: congruent mood Affect: normal affect DS: Data Vitals/I&O Vitals and I&O: Vital Signs Temperature 36.0 C L 08/18/20 07:42 Temperature Source Tympanic 08/18/20 07:42 Pulse 85 08/18/20 07:42 Pulse Rhythm Regular 08/18/20 04:33 Pulse 96 H 08/13/20 18:00 Respiratory Rate 17 08/18/20 07:42 Respiratory Effort Non-Labored 08/18/20 04:33 Respiratory Depth Normal 08/18/20 04:33 Respiratory Pattern Normal 08/18/20 04:33 Blood Pressure 116/69 08/18/20 07:42 Blood Pressure Position Sitting 08/13/20 16:12 Pulse Oximetry 96 08/18/20 07:42 Oxygen Delivery Method Room Air 08/18/20 07:42 Oxygen Flow Rate 0 08/18/20 07:42 Pain Level 0 08/18/20 05:01 Comment 08/14/20 23:10 Intake & Output 08/17/20 08/17/20 08/18/20 11:59 23:59 11:59 Intake Total 300 / 930 630 / 930 480 / 480 Output Total 500 / 500 300 / 300 Balance -200 / 430 630 / 430 180 / 180 Intake: Oral 300 / 930 630 / 930 480 / 480 Output: Urine 500 / 500 300 / 300 Other: Urine Color Straw Yellow Urine Appearance Clear Clear Clear Urine Odor None None Comment DARK YELLOW Stool Size Moderate Stool Characteristics Formed Formed Voiding Methods Toilet Toilet Data Completed and Pending Completed studies during hospitalization [Text1]: FINDINGS: Brain: Age related brain involution is present. No acute intracranial hemorrhage, mass effect, midline shift, or brain herniation. Diffuse subcortical and periventricular white matter hypodensities are most in favor with chronic small vessel disease. Cerebral ventricles: There is ex vacuo ventriculomegaly. Bones/joints: Unremarkable. No acute fracture. Paranasal sinuses: Visualized sinuses are unremarkable. No fluid levels. Mastoid air cells: Visualized mastoid air cells are well aerated. Orbital cavity: There is asymmetriy of the lenses consistent with right intraocular lens prosthesis. Vasculature: Intracranial atherosclerosis is present. Soft tissues: Unremarkable. IMPRESSION: Negative for acute intracranial pathology. FINDINGS: Ventricles and Extra axial spaces: Normal in size and morphology for the patient's age. Hemorrhage: None. Cerebral parenchyma: There are areas of decreased attenuation in the white matter consistent with chronic small vessel ischemic disease. No acute territorial infarct. Midline shift: None. Brainstem/Cerebellum: Normal. Calvarium: Normal. Visualized Paranasal sinuses/Mastoids: Clear. Soft Tissues: Unremarkable. [facility] Medical History Chronic diastolic heart failure (05/18/17) Dementia, Alzheimer's, with behavior disturbance Essential hypertension (09/12/13) History of left heart catheterization History of tobacco use Hyperlipidemia (01/03/13) Hyponatremia (02/13/18) Hypothyroidism (acquired) (01/03/13) Palliative care patient Primary thrombocytosis (10/11/17) Restless leg syndrome Rheumatic aortic stenosis Surgical History Appendectomy (10/19/1952) History of aortic valve replacement LEFT HEART CARDIAC CATH Valve Replacement [facility]ORTIC Social History Smoking/Tobacco Use Status: Former Tobacco Use Alcohol Intake: never Drug use: Never Do you feel safe at home: Yes Do you feel safe in your relationship?: Yes
[2020-08-18] MEDS: QUEtiapine 25 MG TAB PO (11:41)
== END 2020-08-18 14:50 | disposition home or self-care (01) | DRG 57 ==
LOC: ER 18:53 → MS 18:54
PROVIDERS: Nurse Practitioner Family; Admitting Provider General Practice; Emergency Provider Emergency Medicine; Visit Provider General Practice
DX: G30.9 Alzheimer's disease, unspecified (principal); E87.1 Hypo-osmolality and hyponatremia; F02.81 Dementia in other diseases classified elsewhere, unspecified severity, with behavioral disturbance; I50.22 Chronic systolic (congestive) heart failure; R44.0 Auditory hallucinations; I11.0 Hypertensive heart disease with heart failure; Z87.891 Personal history of nicotine dependence; E78.5 Hyperlipidemia, unspecified; E03.9 Hypothyroidism, unspecified; D47.3 Essential (hemorrhagic) thrombocythemia; G25.81 Restless legs syndrome; Z95.2 Presence of prosthetic heart valve; D64.9 Anemia, unspecified; H54.7 Unspecified visual loss; E53.8 Deficiency of other specified B group vitamins; R44.1 Visual hallucinations; H90.3 Sensorineural hearing loss, bilateral
CPT/HCPCS: 36415; 36416; 80048; 80053; 80307; 82962; 85027; 93005; 96360; 99222; 99223; 99233; 99239; 99254; 99285; U0003; 70450; 71046; 80320; 81003; 81015; 82607; 83735; 84443; 84484; 85025; 93010; J1630; J9999

== ENCOUNTER → 2020-08-14 08:09 | Outpatient (BNVA) | payer MEDICARE, MEDICAID, SELFPAY | PROVIDERS: Visit Provider Psychiatry & Neurology Neurology | DX: R69 Illness, unspecified (principal) ==

== ENCOUNTER 2020-09-08 02:08 | Outpatient (CLI) | payer MEDICARE, MEDICAID, SELFPAY ==
[2020-09-08 12:24] LABS: HCT 32.4 % (36.0-46.0); HGB 11.1 g/dL (11.2-15.7); MCH 41.6 pg (27.0-33.0); MCHC 34.3 % (32.0-36.0); MCV 121.3 fL (80-95); MPV 11.2 fL (8.0-11.0); RBC 2.67 10^6/uL (3.93-5.22); RDW 14.1 % (11.7-14.6); WBC 4.56 10^3/uL (4.4-10.8)
[2020-09-08 12:36] LABS: Platelet Count 787 10^3/uL (130-400)
[2020-09-08 12:51] LABS: Anion Gap 10.3 mmol/L (3-11); BUN 18 mg/dL (7-18); CO2 24.7 mmol/L (21.0-32.0); CREATININE 1.02 mg/dL (0.55-1.02); Chloride 97 mmol/L (98-107); Estimated GFR 51.75 (mL/min/1.73m2); Glucose 163 mg/dL (74-106); Potassium 5.5 mmol/L (3.5-5.1); Sodium 132 mmol/L (136-145)
[2020-09-08 13:35] LABS: TSH (W/Ref FT4) 105.12 uIU/mL (0.36-3.74)
[2020-09-08 13:51] LABS: FREE T4 0.28 ng/dL (0.76-1.46)
== END 2020-09-08 02:28 ==
DX: D50.9 Iron deficiency anemia, unspecified (principal); E03.9 Hypothyroidism, unspecified; E87.1 Hypo-osmolality and hyponatremia; F44.89 Other dissociative and conversion disorders; F03.90 Unspecified dementia, unspecified severity, without behavioral disturbance, psychotic disturbance, mood disturbance, and anxiety; G47.00 Insomnia, unspecified
CPT/HCPCS: 36415; 80048; 85027; 84439; 84443

== ENCOUNTER → 2020-09-29 09:26 | Outpatient (BNVA) | payer MEDICARE, MEDICAID, SELFPAY | PROVIDERS: Visit Provider Psychiatry & Neurology Neurology | DX: G30.8 Other Alzheimer's disease (principal); F02.81 Dementia in other diseases classified elsewhere, unspecified severity, with behavioral disturbance; H54.7 Unspecified visual loss; H91.93 Unspecified hearing loss, bilateral; R44.3 Hallucinations, unspecified; I10 Essential (primary) hypertension | CPT/HCPCS: 99214 ==

== ENCOUNTER 2020-10-21 02:06 | Outpatient (CLI) | payer MEDICARE, MEDICAID, SELFPAY ==
[2020-10-21 11:27] LABS: Abs Immature Grans 0.01 10^3/uL (0.0-0.06); Absolute Basophil Count 0.02 10^3/uL (0.0-0.2); Absolute Eosinophil Count 0.03 10^3/uL (0.0-0.7); Absolute Lymphocyte Count 1.43 10^3/uL (1.2-3.4); Absolute Monocyte Count 0.39 10^3/uL (0.1-0.8); Absolute Neutrophil Count 1.44 10^3/uL (1.2-6.7); Basophils % 0.6; Eosinophils % 0.9; HCT 27.9 % (36.0-46.0); HGB 9.7 g/dL (11.2-15.7); Immature Grans % 0.3; Lymphocytes % 43.1; MCH 41.8 pg (27.0-33.0); MCHC 34.8 % (32.0-36.0); MCV 120.3 fL (80-95); MPV 10.7 fL (8.0-11.0); Monocytes % 11.7; Neutrophils % 43.4; Nucleated RBC 0 %; RBC 2.32 10^6/uL (3.93-5.22); RDW 13.9 % (11.7-14.6); RDW-SD 61.3 fL; WBC 3.32 10^3/uL (4.4-10.8)
[2020-10-21 11:38] LABS: Diff Comment RBC Morph Reviewed; Macrocytosis 3+; Platelet Count 336 10^3/uL (130-400); Poikilocytes 1+; Polychromasia Present
[2020-10-21 12:18] LABS: TSH (W/Ref FT4) 7.48 uIU/mL (0.36-3.74)
== END 2020-10-21 02:26 ==
PROVIDERS: Visit Provider Internal Medicine Hematology & Oncology
DX: E03.9 Hypothyroidism, unspecified (principal); D47.1 Chronic myeloproliferative disease
CPT/HCPCS: 36415; 84439; 84443; 85025

== ENCOUNTER 2020-10-30 09:51 | Outpatient (CLI) | payer MEDICARE, MEDICAID, SELFPAY ==
[2020-10-30 11:07] LABS: Abs Immature Grans 0.02 10^3/uL (0.0-0.06); Absolute Basophil Count 0.02 10^3/uL (0.0-0.2); Absolute Eosinophil Count 0.03 10^3/uL (0.0-0.7); Absolute Monocyte Count 0.43 10^3/uL (0.1-0.8); Absolute Neutrophil Count 2.43 10^3/uL (1.2-6.7); Basophils % 0.5; Eosinophils % 0.7; HCT 26.6 % (36.0-46.0); HGB 9.5 g/dL (11.2-15.7); Immature Grans % 0.5; Lymphocytes % 33.9; MCH 42.4 pg (27.0-33.0); MCHC 35.7 % (32.0-36.0); MCV 118.8 fL (80-95); MPV 10.6 fL (8.0-11.0); Monocytes % 9.7; Neutrophils % 54.7; Nucleated RBC 0 %; Platelet Count 508 10^3/uL (130-400); RBC 2.24 10^6/uL (3.93-5.22); RDW 13.8 % (11.7-14.6); RDW-SD 59.5 fL; WBC 4.43 10^3/uL (4.4-10.8)
== END 2020-10-30 10:11 ==
PROVIDERS: Visit Provider Internal Medicine Hematology & Oncology
DX: D47.3 Essential (hemorrhagic) thrombocythemia (principal)
CPT/HCPCS: 36415; 85025

== ENCOUNTER 2020-11-21 01:34 | Outpatient (CLI) | payer MEDICARE, MEDICAID, SELFPAY ==
[2020-11-21 11:19] LABS: Abs Immature Grans 0.02 10^3/uL (0.0-0.06); Absolute Basophil Count 0.02 10^3/uL (0.0-0.2); Absolute Eosinophil Count 0.04 10^3/uL (0.0-0.7); Absolute Lymphocyte Count 1.45 10^3/uL (1.2-3.4); Absolute Monocyte Count 0.64 10^3/uL (0.1-0.8); Basophils % 0.4; Eosinophils % 0.7; HCT 25.4 % (36.0-46.0); HGB 8.7 g/dL (11.2-15.7); Immature Grans % 0.4; MCH 41.6 pg (27.0-33.0); MCHC 34.3 % (32.0-36.0); MCV 121.5 fL (80-95); MPV 10.8 fL (8.0-11.0); Monocytes % 11.5; Nucleated RBC 0 %; Platelet Count 409 10^3/uL (130-400); RBC 2.09 10^6/uL (3.93-5.22); RDW 14.1 % (11.7-14.6); RDW-SD 63.2 fL; WBC 5.57 10^3/uL (4.4-10.8)
== END 2020-11-21 01:54 ==
PROVIDERS: Visit Provider Internal Medicine Hematology & Oncology
DX: D47.3 Essential (hemorrhagic) thrombocythemia (principal)
CPT/HCPCS: 36415; 85025

== ENCOUNTER → 2020-11-24 07:36 | Outpatient (BNVA) | payer MEDICARE, MEDICAID, SELFPAY | PROVIDERS: Visit Provider Psychiatry & Neurology Neurology | DX: G30.8 Other Alzheimer's disease (principal); F02.81 Dementia in other diseases classified elsewhere, unspecified severity, with behavioral disturbance; H54.7 Unspecified visual loss; H91.90 Unspecified hearing loss, unspecified ear; R44.3 Hallucinations, unspecified; I10 Essential (primary) hypertension | CPT/HCPCS: 99442 ==

== ENCOUNTER 2020-12-18 02:52 | Outpatient (CLI) | payer MEDICARE, MEDICAID, SELFPAY ==
[2020-12-18 13:13] LABS: Abs Immature Grans 0.03 10^3/uL (0.0-0.06); Absolute Basophil Count 0.02 10^3/uL (0.0-0.2); Absolute Eosinophil Count 0.02 10^3/uL (0.0-0.7); Absolute Lymphocyte Count 1.16 10^3/uL (1.2-3.4); Absolute Monocyte Count 0.41 10^3/uL (0.1-0.8); Absolute Neutrophil Count 2.66 10^3/uL (1.2-6.7); Basophils % 0.5; Eosinophils % 0.5; HCT 24.8 % (36.0-46.0); HGB 8.7 g/dL (11.2-15.7); Immature Grans % 0.7; MCH 43.3 pg (27.0-33.0); MCHC 35.1 % (32.0-36.0); MCV 123.4 fL (80-95); MPV 10.7 fL (8.0-11.0); Monocytes % 9.5; Neutrophils % 61.8; Nucleated RBC 0 %; RBC 2.01 10^6/uL (3.93-5.22); RDW 13.4 % (11.7-14.6); RDW-SD 59.8 fL
[2020-12-18 13:34] LABS: Platelet Count 405 10^3/uL (130-400)
[2020-12-18 13:35] LABS: Diff Comment RBC Morph Reviewed; Macrocytosis 3+; Poikilocytes 1+; Polychromasia Present
== END 2020-12-18 02:53 | disposition home or self-care (01) ==
LOC: LBO 02:52
PROVIDERS: Visit Provider Internal Medicine Hematology & Oncology
DX: D47.3 Essential (hemorrhagic) thrombocythemia (principal)
CPT/HCPCS: 36415; 85025

== ENCOUNTER 2021-01-15 09:03 | Outpatient (CLI) | payer MEDICARE, MEDICAID, SELFPAY ==
[2021-01-15 13:11] LABS: Abs Immature Grans 0.01 10^3/uL (0.0-0.06); Absolute Basophil Count 0.03 10^3/uL (0.0-0.2); Absolute Eosinophil Count 0.02 10^3/uL (0.0-0.7); Absolute Lymphocyte Count 1.02 10^3/uL (1.2-3.4); Absolute Monocyte Count 0.36 10^3/uL (0.1-0.8); Absolute Neutrophil Count 1.23 10^3/uL (1.2-6.7); Basophils % 1.1; Eosinophils % 0.7; HCT 22.9 % (36.0-46.0); Immature Grans % 0.4; Lymphocytes % 38.2; MCH 43.2 pg (27.0-33.0); MCHC 34.9 % (32.0-36.0); MCV 123.8 fL (80-95); Monocytes % 13.5; Neutrophils % 46.1; Nucleated RBC 0 %; RBC 1.85 10^6/uL (3.93-5.22); RDW 13.6 % (11.7-14.6); RDW-SD 61.1 fL; WBC 2.67 10^3/uL (4.4-10.8)
[2021-01-15 13:28] LABS: ALT 23 U/L (14-59); AST 23 U/L (15-37); Albumin 3.9 g/dL (3.4-5.0); Alkaline Phosphatase 69 U/L (46-116); Anion Gap 5.4 mmol/L (3-11); BUN 19 mg/dL (7-18); Bilirubin, Total 0.3 mg/dL (0.2-1.0); CO2 26.6 mmol/L (21.0-32.0); CREATININE 0.9 mg/dL (0.55-1.02); Calcium 8.3 mg/dL (8.5-10.1); Chloride 98 mmol/L (98-107); Estimated GFR 59.65 (mL/min/1.73m2); Glucose 104 mg/dL (74-106); Sodium 130 mmol/L (136-145); Total Protein 6.6 g/dL (6.4-8.2)
[2021-01-15 13:34] LABS: Diff Comment RBC Morph Reviewed; Macrocytosis 3+; Platelet Count 302 10^3/uL (130-400)
[2021-01-15 13:35] LABS: Poikilocytes 1+
== END 2021-01-15 09:04 | disposition home or self-care (01) ==
LOC: LBO 09:15
PROVIDERS: Visit Provider Internal Medicine Hematology & Oncology
DX: D47.1 Chronic myeloproliferative disease (principal)
CPT/HCPCS: 36415; 80053; 85025

== ENCOUNTER 2021-03-24 16:04 | Observation (INO) | payer MEDICARE, MEDICAID, SELFPAY ==
[2021-03-24] VITALS (27 sets, daily range): BP systolic 127–170; BP diastolic 67–84; PULSE 66–85; RESP 8–21; TEMP 36.6; O2SAT 95–100
--- NOTE | 2021-03-24 16:00 | DI.CT_ITS ---
Exam(s) CT HEAD - STROKE PROTOCOL EXAM: CT HEAD - STROKE PROTOCOL CLINICAL HISTORY: L facial droop. TECHNIQUE: Imaging Protocol: Axial computed tomography images with coronal and sagittal reformatted images were created and reviewed COMPARISON: CT CT HEAD WO from 08/13/2020 FINDINGS: There are no skull fractures nor fluid in the visualized paranasal sinuses. There is no evidence of intracranial hemorrhage, mass effect, or shift of midline structures. There are no extra-axial fluid collections. The ventricles are not enlarged or shifted and there is no blo od within the ventricular system nor within the basal cisterns. There is abundant bilateral periventricular hypodensity consistent with chronic small vessel ischemic changes. There is calcification noted within the vertebral arteries and basilar artery as well as w ithin the intracavernous and supraclinoid aspects of the internal carotid arteries. IMPRESSION: Abundant bilateral periventricular hypodensity consistent with chronic small vessel disease. No obvi ous acute infarct nor intracranial hemorrhage. If clinically indicated follow-up MRI with diffusion imaging can be performed. RADIATION DOSE DELIVERED: 838.6mGy.cm Total DLP DATA REPOSITORY: All CT scans at this facility are submitted to the National Radiology Data Registry (NRDR) Dose Index Registry (DIR) with the [employer] ([employer]). RADIATION OPTIMIZATION: All CT scans at this facility use at least one of these dose optimization te chniques: automated exposure control; mA and/or kV adjustment per patient size (includes targeted exa ms where dose is matched to clinical indication); or iterative reconstruction.
--- NOTE | 2021-03-24 16:00 | DI.RAD_ITS ---
Exam(s) XR CHEST 1V IN DI DEPT EXAM: XR CHEST 1V IN DI DEPT CLINICAL HISTORY: L facial droop at home. TECHNIQUE: 2D digital imaging was performed. COMPARISON: CR,XR XR CHEST 2V PA LATERAL from 08/13/2020 CR,XR XR CHEST 2V PA LATERAL from 08/13/2020 FINDINGS: Again noted are sternotomy wires and this patient has a prosthetic aortic valve, seen on prior imagin g. Heart size upper normal. The mediastinum is not widened. Right lung is clear. There is some atelec tasis-mild infiltrate in the left lung base. No pleural effusions. No pulmonary edema. IMPRESSION: Sternotomy wires. Prosthetic aortic valve. No pulmonary edema. Infiltrate left lung base. No pulmonary edema. DATA REPOSITORY: RADIATION DOSE DELIVERED: All CT scans at this facility use at least one of these dose optimization techniques: automated exposure control; mA and/or kV adjustment per patient size (includes targeted e xams where dose is matched to clinical indication); or iterative reconstruction.
--- NOTE | 2021-03-24 16:00 | RT.EKG_ITS ---
APPROVED REPORT Exam: Resting ECG Reason for Exam: weakness, concern for CVA Patient Location: E HR:79 bpm ECG Measurements Heart Rate 79 AXIS SC 127 P -5 QRSd 79 QRS 9 QT 360 T 37 QTc 413 Conclusion Sinus rhythm...normal P axis, V-rate 60- 99
--- NOTE | 2021-03-24 16:06 | W.ED.GENAD ---
Discharge Plan Disposition Patient Disposition: [facility] INPATIENT Condition: Stable Discharge Details Chief Complaint: CVA/TIA Clinical Impression: TIA (transient ischemic attack) Admit Date/Time: 03/24/21 18:45 Admit Provider: Kalyan Ridley Attending Provider: Kalyan Ridley Primary Care Provider: Heaven Morin ED Provider: Nilsa Burris Discharge Instructions Activity:: Activity as Tolerated Equipment/Supplies:: No Equipment Needed Diet:: As Tolerated Discharge Orders Discharge Orders: Discharge Order (Routine); Ordered 03/25/21 Ordered By: Aga Seals Discharge Data Discharge Date/Time-TO BE ENTERED AT DEPARTURE: 03/24/21 19:35 Medical Decision Making Patient is a pleasant 85-year-old female brought in via EMS with concern of CVA. She reported approximately 30 minutes prior to her arrival she had sudden onset of left-sided facial drooping, headache, numbness in the left face and arm. Symptoms have largely resolved at the time EMS arrived. If continue to improve since they picked her up. No trauma. No loss consciousness. At the time patient arrived, fast ED exam was performed and no objective were appreciated. BGL 106. Patient transferred to CT with concern for CVA or TIA. On return, patient was reevaluated. She continues to be asymptomatic. Denies any headache. No nausea or vomiting. NIHSS score was performed. Significant only for difficulty with vision but she reports is baseline. 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 States that she also has difficulty with vision in the right eye. Does not wear glasses or other corrective agents. Otherwise he is able to identify things around the wound, cognition is intact, no focal deficits. At my exam patient is noted to have an enlarged thyroid which she reports is known and being followed by her primary care provider. Spoke with patient's daughter, Kathie [phone]. She states that the left side of her face was drooping, she was lethargic and thick talking. She states patient was having difficulty with her left arm. She states that she had a valve replacement in 2000 at [facility] and it was shortly after that she had a TIA. None since then. . EKG was obtained and reviewed by Dr. Marin. Patient is in a normal sinus rhythm with a rate of 79. No acute ischemic changes noted. Contacted by radiologist who reviewed CT. He advised chronic disease is noted but no bleed or other acute issue noted. Labs reviewed. No leukocytosis. Hemoglobin is normal at 9.1 but this is baseline for the patient. Platelet 443, this. Baseline for the patient. Sodium is low at 132 baseline patient. Creatinine 1.1 which is slightly up but elevated compared to most recent assessments. Troponin within normal limits. Patient continues to be asymptomatic. Patient augmented to received full dose ASA. With her hx of primary thrombocytosis, plan to discuss plavix with [facility]. ABCD2 score moderate, plan to admit for further evaluation and workup. Consulted with Dr. Cruz with neurology. He advised that loading dose of plavix would be appropriate, no dosing change based on her hx of primary thrombocytosis. He recommended admission, MRI, carotid US and echo. In regards to BP, he advised continuing current amlodipine but does not recommend other agressive BP management at this time. Will give 75mg Plavix. Consulted with Dr. Mcdonald. He agrees to admission for continued monitoring in the setting of the presumed TIA Updated daughter on plan. She will bring by the [facility] as we do not have this here. HPI General Mode of arrival: EMS. Date/Time Provider Initiated Documentation: 03/24/21 16:06. Limitations to Documentation: no limitations. Information obtained by: patient, family (daughter Kathie), EMS and RN notes reviewed. History of Present Illness 85 year old F presents to the emergency department with the chief complaint of concern for CVA, described as moderate, and is localized to the face, left and upper extremity. Patient started experiencing this minute(s) (30) and it has been now resolved. No relieving factors improve symptom(s), No exacerbating factors reported . Patient notes headaches (now resolved) and weakness; denies confusion, cough, fever/chills, nausea/vomiting, rash, shortness of breath and syncope. Patient did receive the following treatments prior to arrival, none Related Data Home Medications Medication Instructions Recorded Confirmed I-Caps 1 ea PO .DAILY @ 1200 01/03/13 09/29/20 cholecalciferol (vitamin D3) 1,000 unit PO .DAILY @ 1200 01/03/13 09/29/20 triamcinolone acetonide 15 % TOPICAL BID #30 g 04/06/16 09/29/20 meclizine 12.5 mg PO Q6H PRN #20 tab 04/12/20 03/24/21 polyethylene glycol 3350 17 17 g PO DAILY PRN #238 g 09/11/20 09/29/20 gram/dose oral powder aspirin 81 mg tablet,delayed 81 mg PO BID tab 09/29/20 03/24/21 release docusate sodium 100 mg tablet 100 mg PO DAILY PRN tab 09/29/20 09/29/20 hydroxyurea 500 mg capsule See Rx Instructions PO .COMPLEX 09/29/20 03/24/21 cap quetiapine 25 mg tablet 25 mg PO QID PRN tab 09/29/20 03/24/21 ruxolitinib 10 mg tablet 10 mg PO BID 09/29/20 03/24/21 amlodipine 2.5 mg tablet 2.5 mg PO DAILY #90 tab-cap 10/30/20 03/24/21 lorazepam 0.5 mg tablet 0.25 - 0.5 mg PO Q6H PRN PRN #10 11/04/20 03/24/21 tab diclofenac sodium 1 % topical gel 2 g TOPICAL QID PRN #100 g 11/06/20 11/06/20 haloperidol 2 mg tablet 2 - 4 mg PO TID PRN #20 tab 11/06/20 03/24/21 levothyroxine 100 mcg tablet 100 mcg PO DAILY #90 tab 12/25/20 03/24/21 mirtazapine 15 mg tablet 15 mg PO QHS #30 tab 02/02/21 03/24/21 mirtazapine 7.5 mg tablet 7.5 mg PO QHS PRN #30 tab 02/02/21 03/24/21 trazodone 50 mg tablet 25 - 50 mg PO QHS #60 tab 03/03/21 03/24/21 atorvastatin 80 mg PO QPM #30 tab 03/25/21 clopidogrel [Plavix] 75 mg PO DAILY #30 tab 03/25/21 Previous Rx's Medication Instructions Recorded meclizine 12.5 mg PO Q6H PRN #20 tab 04/12/20 polyethylene glycol 3350 17 17 g PO DAILY PRN #238 g 09/11/20 gram/dose oral powder amlodipine 2.5 mg tablet 2.5 mg PO DAILY #90 tab-cap 12/31/20 lorazepam 0.5 mg tablet 0.25 - 0.5 mg PO Q6H PRN PRN #10 11/04/20 tab diclofenac sodium 1 % topical gel 2 g TOPICAL QID PRN #100 g 11/06/20 haloperidol 2 mg tablet 2 - 4 mg PO TID PRN #20 tab 11/06/20 levothyroxine 100 mcg tablet 100 mcg PO DAILY #90 tab 12/25/20 mirtazapine 15 mg tablet 15 mg PO QHS #30 tab 02/02/21 mirtazapine 7.5 mg tablet 7.5 mg PO QHS PRN #30 tab 02/02/21 trazodone 50 mg tablet 25 - 50 mg PO QHS #60 tab 03/03/21 atorvastatin 80 mg PO QPM #30 tab 03/25/21 clopidogrel [Plavix] 75 mg PO DAILY #30 tab 03/25/21 Allergies Allergy/AdvReac Type Severity Reaction Status Date / Time Iodinated Contrast Media Allergy Intermediate Skin Rash Verified 03/24/21 16:28 [Iodinated Contrast- Oral and IV Dye] General ERIKA: 2 Review of Systems Constitutional Constitutional: Reports as per HPI, Denies chills, Denies fever(s), Denies frequent falls, Reports headache(s) (now resolved) and Reports weakness (now resolved) Eyes Eyes: Reports as per HPI, Denies blurry vision and Denies change in vision ENT Ears, Nose, Mouth, and Throat: Denies vertigo, Reports headache(s) (now resolved) and Denies neck pain Cardiovascular Cardiovascular: Reports as per HPI, Denies chest pain, Denies lightheadedness, Denies radiating jaw, neck or arm pain, Denies dyspnea and Denies dyspnea on exertion Respiratory Respiratory: Reports as per HPI, Denies chest congestion, Denies cough, Denies dyspnea, Denies dyspnea on exertion, Denies stridor and Denies wheezing Gastrointestinal Gastrointestinal: Reports as per HPI, Denies abdominal pain, Denies change in bowel habits, Denies nausea and Denies vomiting Musculoskeletal Musculoskeletal: Reports as per HPI, Denies back pain, Denies myalgias, Denies muscle cramps, Denies neck pain and Reports numbness (left side of face and LUE, now resolved) Integumentary/Breasts Skin/Breast: Reports as per HPI and Denies rash Neurologic Neurologic: Reports as per HPI, Denies abnormal movements, Denies abnormal speech, Denies behavioral changes, Denies confusion, Denies vertigo, Denies frequent falls, Reports headache(s) (now resolved), Denies localized weakness, Reports numbness (left side of face and LUE, now resolved) and Reports weakness (now resolved) Psychiatric Psychiatric: Denies behavioral changes and Denies confusion Allergic/Immunologic Allergic/Immunologic: Denies wheezing [facility] Medical History Chronic diastolic heart failure (05/18/17) Dementia, Alzheimer's, with behavior disturbance Essential hypertension (09/12/13) History of left heart catheterization History of tobacco use Hyperlipidemia (01/03/13) Hyponatremia (02/13/18) Hypothyroidism (acquired) (01/03/13) Palliative care patient Primary thrombocytosis (10/11/17) Restless leg syndrome Rheumatic aortic stenosis Surgical History Appendectomy (10/19/1952) History of aortic valve replacement LEFT HEART CARDIAC CATH Valve Replacement AORTIC Social History Smoking/Tobacco Use Status: Former Tobacco Use Smoking risk assessment performed?: Yes Alcohol Intake: never Drug use: Never Household members: children Housing: house Number of Children: 4 number of grandchildren: 8 current occupation: retired Pets and animals: No What is your relationship status?: Panel score (0-1 are the most socially isolated patients): 0 What type of physical activity do you participate in: none Seatbelt use: always Do you feel safe at home: Yes Do you feel safe in your relationship?: Yes Exam Const General: cooperative, healthy appearing, comfortable, no acute distress, well developed, well groomed and anxious Nutritional Appearance: average body habitus and well nourished Orientation: alert, awake and oriented x3 HENMT Head: normal to inspection, no palpable skull fracture, normocephalic and atraumatic Ears: hearing grossly normal bilaterally, external ears normal and TM's normal bilaterally General nose exam: external nose normal Face and sinus: normal facial exam Mouth: oral mucosae normal and moist mucous membranes Throat: posterior oropharynx normal Eyes General: appearance normal, both eyes and all related structures Visual Bailey: normal visual bailey by confrontation Alignment and Position: alignment normal Periorbital: periorbital findings normal Eyelids: eyelids normal Sclera: sclerae normal Cornea: corneas normal Pupils: PERRL EOM: EOM intact bilaterally Neck Neck: normal visual inspection, full ROM, no lymphadenopathy and no meningeal signs Resp Effort & Inspection: normal respiratory effort, able to speak in complete sentences and no respiratory distress Auscultation: clear to auscultation bilaterally, no rales, no rhonchi and no wheezes Cardio Rate: regular rate Rhythm: regular rhythm Heart Sounds: S1 normal and S2 normal GI Inspection: normal to inspection and non-distended Palpation: soft, no hepatosplenomegaly, not firm, no guarding, not rigid and nontender Percussion: normal to percussion Auscultation: normal bowel sounds Skin General skin exam: no rashes or lesions noted Neuro General: patient alert, patient awake, patient oriented x3, no meningeal signs, no focal motor deficits and CN's II-XI intact bilaterally Cranial Nerves: CN's II-XI intact bilaterally Cognition: normal cognition Speech: speech normal Motor: muscle tone normal throughout, strength 5/5 throughout, no pronator drift, no movement abnormalities noted and no fasciculations Sensory Exam: no sensory deficits noted Coordination: [id number] test normal and [id number] test normal Extrem General: normal to inspection, capillary refill normal, no pedal edema and no calf tenderness Psych Appearance: grossly normal and well kempt Mental Status: mental status grossly normal Speech and Movement: speech and movement normal
[2021-03-24 16:32] LABS: Abs Immature Grans 0.03 10^3/uL (0.0-0.06); Absolute Basophil Count 0.03 10^3/uL (0.0-0.2); Absolute Eosinophil Count 0.01 10^3/uL (0.0-0.7); Absolute Lymphocyte Count 1.14 10^3/uL (1.2-3.4); Absolute Monocyte Count 0.46 10^3/uL (0.1-0.8); Basophils % 0.9; Eosinophils % 0.3; HCT 26.5 % (36.0-46.0); HGB 9.1 g/dL (11.2-15.7); Immature Grans % 0.9; Lymphocytes % 32.9; MCH 40.6 pg (27.0-33.0); MCHC 34.3 % (32.0-36.0); MCV 118.3 fL (80-95); Monocytes % 13.3; Neutrophils % 51.7; Nucleated RBC 1 %; Platelet Count 443 10^3/uL (130-400); RBC 2.24 10^6/uL (3.93-5.22); RDW 12.3 % (11.7-14.6); RDW-SD 52.8 fL; WBC 3.47 10^3/uL (4.4-10.8)
[2021-03-24 16:45] LABS: ALT 22 U/L (14-59); AST 27 U/L (15-37); Albumin 4.3 g/dL (3.4-5.0); Alkaline Phosphatase 68 U/L (46-116); Anion Gap 12.4 mmol/L (3-11); BUN 15 mg/dL (7-18); Bilirubin, Total 0.4 mg/dL (0.2-1.0); CO2 23.6 mmol/L (21.0-32.0); CREATININE 1.1 mg/dL (0.55-1.02); Calcium 8.6 mg/dL (8.5-10.1); Chloride 96 mmol/L (98-107); Estimated GFR 47.32 (mL/min/1.73m2); Glucose 103 mg/dL (74-106); Magnesium 2.1 mg/dL (1.8-2.4); Potassium 4.4 mmol/L (3.5-5.1); Sodium 132 mmol/L (136-145)
[2021-03-24 16:47] LABS: Troponin I < 0.05 ng/mL (<0.06)
--- NOTE | 2021-03-24 16:53 | DI.VRAD_ITS ---
PROCEDURE INFORMATION: Exam: CT Head Without Contrast Exam date and time: 03/24/2021 4:11 PM Age: 85 years old Clinical indication: Left facial droop TECHNIQUE: Imaging protocol: Computed tomography of the head without contrast. Other technique: STROKE PROTOCOL was implemented. COMPARISON: CT HEAD WO 08/13/2020 4:39 PM FINDINGS: Brain: Small chronic left basal ganglia lacunar infarct. Nonspecific hypodensities of the periventricular and deep subcortical white matter, most likely secondary to chronic small vessel ischemic change. No intracranial hemorrhage or extra-axial fluid collection. No evidence of mass effect or midline shift. López-white matter differentiation is normal. Cerebral ventricles: Prominence of the ventricles and sulci, most likely attributed to parenchymal volume loss. Bones/joints: No acute osseus lesion or fracture. Paranasal sinuses: Visualized sinuses are unremarkable. No fluid levels. Mastoid air cells: Unremarkable. Soft tissues: Unremarkable. IMPRESSION: 1. No acute intracranial pathology. ASPECTS score 10. 2. Chronic findings, as above. Dictated and Authenticated by: Estrada Garcia MD. Ordering:LUIS Light MD
[2021-03-24 16:55] LABS: Prothrombin Time 10.1 sec (9.3-11.0)
[2021-03-24 17:25] LABS: Bilirubin Negative (Negative); Blood Negative (Negative); Clarity Clear (Clear); Glucose Negative (Negative); Ketones Trace mg/dL (Negative); Leukocyte Esterase Small (Negative); Nitrite Negative (Negative)
[2021-03-24 17:28] LABS: Absolute Neutrophil Count 1.79 10^3/uL (1.2-6.7)
[2021-03-24 17:29] LABS: Diff Comment Diff Reviewed; Macrocytosis 2+
[2021-03-24] MEDS: Aspirin 81 MG CHEW 162 MG PO (17:42)
[2021-03-24 17:49] LABS: Bacteria Moderate HPF (Negative); C & S Indicated? No/Sq. Contamination; Casts Negative LPF (Negative); Crystals Negative HPF (Negative); Epithelial Cells Many HPF (Negative); Mucus Negative (Negative); RBC 0-2 HPF (0-2)
[2021-03-24 18:12] LABS: Source Nasal/Nares
--- NOTE | 2021-03-24 18:22 | DI.VRAD_ITS ---
PROCEDURE INFORMATION: Exam: XR Chest Exam date and time: 03/24/2021 5:42 PM Age: 85 years old Clinical indication: Left facial drop TECHNIQUE: Imaging protocol: XR of the chest. Views: 1 view. COMPARISON: CR XR CHEST 2V PA LATERAL 08/13/2020 4:40 PM FINDINGS: Lungs: No focal areas of consolidation. Pleural spaces: Unremarkable. No pleural effusion. No pneumothorax. Heart/Mediastinum: Cardiac and mediastinal silhouettes are unremarkable. Bones/joints: Median sternotomy wires in place. No acute fracture. IMPRESSION: No acute cardiopulmonary findings. Dictated and Authenticated by: Estrada Garcia MD. Ordering:LUIS Light MD
--- NOTE | 2021-03-24 19:02 | HPE_ITS ---
Date of service: 03/24/21 Time of Service: 19:03 Assessment and Plan Assessment and plan (1) TIA (transient ischemic attack): Start date: 03/24/21 Status: Acute Assessment and plan: This is an 85-year-old lady with sudden onset of left sided numbness and paresis mostly including the face and upper extremity. She has had similar episodes in the past the same region by history. She is only on baby has home. She was given a full dose aspirin with Plavix 75 mg p.o. which will be continued along with a baby aspirin daily. She also was placed on atorvastatin moderate dose. Further imaging will include MRI of the brain, carotid Doppler studies and echocardiogram. Continue neurological checks and cardiac monitoring which has revealed only sinus rhythm throughout the night. She is on observation and is a DNR/DNI. If she is stable with no new findings she could be discharged home for further neurological follow-up. Permissive hypertension will be allowed during this hospital stay. Amlodipine will be continued but lisinopril will be held. There was a question of a left lower lobe infiltrate on chest x-ray which will be updated in the morning. (2) HTN (hypertension): Status: Chronic Assessment and plan: Slightly exacerbated and will allow permissive hypertension holding lisinopril and continuing amlodipine. Follow-up clinically on telemetry. Qualifiers: Hypertension type: essential hypertension Qualified Code(s): I10 - Essential (primary) hypertension (3) Dementia: Status: Chronic Assessment and plan: Patient has mild chronic dementia on medical therapy. This appears stable. Qualifiers: Dementia behavioral disturbance: with behavioral disturbance Dementia type: vascular dementia Qualified Code(s): F01.51 - Vascular dementia with behavioral disturbance (4) Primary thrombocytosis: Status: Chronic Assessment and plan: Patient is on medical therapy for this problem and this appears stable and noncontributory to her presenting symptoms. Antiplatelet therapy will be maximized with aspirin and Plavix. (5) Hypothyroidism: Status: Chronic Assessment and plan: TSH is slightly elevated but normal free T4. This is on supplement as an outpatient and this can be adjusted as an outpatient. This is not likely contributing to her present situation. Qualifiers: Hypothyroidism type: unspecified Qualified Code(s): E03.9 - Hypothyroidism, unspecified (6) Chronic hyponatremia: Status: Chronic Assessment and plan: Stable and will monitor. History of Present Illness History of Present Illness Chief Complaint: Left-sided numbness weakness Narrative: This is an 85-year-old female patient who had a brief episode of left-sided symptoms including left facial droop, left facial and upper extremity numbness with some weakness as well as some speech difficulty with the left facial drooping. This lasted only 30 minutes and had mostly resolved by the time EMS arrived and improved further upon transport to the ED. She also had associated headache which resolved. At the time I saw the patient she was at baseline. She is a vague historian. She states that she has had similar episodes in the past with no persistent neurological deficits. She denies any history of palpitations or cardiac dysrhythmias. She does have dementia with behavioral abnormalities on medical therapy as well as hypothyroidism and primary thrombocytosis on treatment. She is on a baby aspirin daily and did receive a full dose aspirin in the ED. And also was advised by teleneurology that she be placed on normal dose of Plavix which was given in the ED and will be continued. She is not on a statin and this will be initiated. Follow-up lipid profile would be appropriate. The patient offers no new complaints with her onset of TIA other than that she has had an episode similar in location in the past. She does not remember previous imaging. She will be observed overnight for further monitoring of heart rhythm and imaging of the brain and neck. She is a DNR/DNI. Review of Systems Narrative: 13 point review of systems otherwise unrevealing or stable. [facility] Medical History Chronic diastolic heart failure (05/18/17) Dementia, Alzheimer's, with behavior disturbance Essential hypertension (09/12/13) History of left heart catheterization History of tobacco use Hyperlipidemia (01/03/13) Hyponatremia (02/13/18) Hypothyroidism (acquired) (01/03/13) Palliative care patient Primary thrombocytosis (10/11/17) Restless leg syndrome Rheumatic aortic stenosis Surgical History Appendectomy (10/19/1952) History of aortic valve replacement LEFT HEART CARDIAC CATH Valve Replacement AORTIC Social History Smoking/Tobacco Use Status: Former Tobacco Use Smoking risk assessment performed?: Yes Alcohol Intake: never Drug use: Never Household members: children Housing: house Number of Children: 4 number of grandchildren: 8 current occupation: retired Pets and animals: No What is your relationship status?: Panel score (0-1 are the most socially isolated patients): 0 What type of physical activity do you participate in: none Seatbelt use: always Do you feel safe at home: Yes Do you feel safe in your relationship?: Yes Meds Allergies and Home Medications Allergies Allergy/AdvReac Type Severity Reaction Status Date / Time Iodinated Contrast Media Allergy Intermediate Skin Rash Verified 03/24/21 16:28 [Iodinated Contrast- Oral and IV Dye] Home Medications Medication Instructions Recorded Confirmed Type I-Caps 1 ea PO .DAILY @ 1200 01/03/13 09/29/20 History cholecalciferol (vitamin D3) 1,000 unit PO .DAILY @ 1200 01/03/13 09/29/20 History triamcinolone acetonide 15 % TOPICAL BID #30 g 04/06/16 09/29/20 History meclizine 12.5 mg PO Q6H PRN #20 tab 04/12/20 03/24/21 Rx polyethylene glycol 3350 17 17 g PO DAILY PRN #238 g 09/11/20 09/29/20 Rx gram/dose oral powder aspirin 81 mg tablet,delayed 81 mg PO BID tab 09/29/20 03/24/21 History release docusate sodium 100 mg tablet 100 mg PO DAILY PRN tab 09/29/20 09/29/20 History hydroxyurea 500 mg capsule See Rx Instructions PO .COMPLEX 09/29/20 03/24/21 History cap quetiapine 25 mg tablet 25 mg PO QID PRN tab 09/29/20 03/24/21 History ruxolitinib 10 mg tablet 10 mg PO BID 09/29/20 03/24/21 History amlodipine 2.5 mg tablet 2.5 mg PO DAILY #90 tab-cap 10/30/20 03/24/21 Rx lorazepam 0.5 mg tablet 0.25 - 0.5 mg PO Q6H PRN PRN #10 11/04/20 03/24/21 Rx tab diclofenac sodium 1 % topical gel 2 g TOPICAL QID PRN #100 g 11/06/20 11/06/20 Rx haloperidol 2 mg tablet 2 - 4 mg PO TID PRN #20 tab 11/06/20 03/24/21 Rx levothyroxine 100 mcg tablet 100 mcg PO DAILY #90 tab 12/25/20 03/24/21 Rx lisinopril 10 mg tablet 10 mg PO DAILY #90 tab 01/27/21 03/24/21 Rx mirtazapine 15 mg tablet 15 mg PO QHS #30 tab 02/02/21 03/24/21 Rx mirtazapine 7.5 mg tablet 7.5 mg PO QHS PRN #30 tab 02/02/21 03/24/21 Rx trazodone 50 mg tablet 25 - 50 mg PO QHS #60 tab 03/03/21 03/24/21 Rx Exam Narrative Exam Narrative: General: Patient appears appropriate for age, in no acute distress, mildly obese. Alert and oriented to person and place. Patient does wander in conversation. HEENT: Normocephalic, eyes with pupils equal and reactive light symmetrically, extraocular movement intact and sclera anicteric. Oropharynx with moist mucosa. External ears and nose normal. Neck: Supple without JVD and no auscultated bruits. Back: Kyphotic without CVA tenderness. Lungs: Clear to auscultation percussion. Breast: Exam deferred. Heart: Regular rate and rhythm with systolic murmur left sternal border with no gallops or rubs. Abdomen: Obese contour, soft and nontender to palpation with no palpable hepatosplenomegaly. Genitalia/rectal: Exam deferred. Extremities: Without clubbing, cyanosis or pitting edema. Peripheral pulses intact. Skin: Pale, warm and dry with no rashes noted. Normal turgor. Neuro: Cranial nerves II through XII grossly intact, no focalizing motor deficits. No focalizing sensory deficits. No tremor. Babinski's. Psych: Normal mood and affect, no abnormal thought processes. Remote memory grossly intact and recent memory appears to be in deficit. Patient is a poor historian. Results Imaging Imaging Studies: CT HEAD - STROKE PROTOCOL EXAM: ? CT HEAD - STROKE PROTOCOL CLINICAL HISTORY: ? L facial droop. ? TECHNIQUE:? Imaging Protocol: Axial computed tomography images with coronal and sagittal reformatted images were created and reviewed COMPARISON:? CT CT HEAD WO from 08/13/2020 FINDINGS: ?There are no skull fractures nor fluid in the visualized paranasal sinuses. There is no evidence of intracranial hemorrhage, mass effect, or shift of midline structures.? There are no extra-axial fluid collections.? The ventricles are not enlarged or shifted and there is no blood within the ventricular system nor within the basal cisterns. There is abundant bilateral periventricular hypodensity consistent with chronic small vessel ischemic changes.? There is calcification noted within the vertebra l arteries and basilar artery as well as within the intracavernous and supraclinoid aspects of the internal carotid arteries. IMPRESSION: Abundant bilateral periventricular hypodensity consistent with chronic small vessel disease.? No obvious acute infarct nor intracranial hemorrhage. If clinically indicated follow-up MRI with diffusion imaging can be performed. XR CHEST 1V IN DI DEPT EXAM:? XR CHEST 1V IN DI DEPT CLINICAL HISTORY: ? L facial droop at home. ? TECHNIQUE:? 2D digital imaging was performed. COMPARISON:? CR,XR XR CHEST 2V PA ? LATERAL from 08/13/2020 CR,XR XR CHEST 2V PA ? LATERAL from 08/13/2020 FINDINGS: Again noted are sternotomy wires and this patient has a prosthetic aortic valve, seen on prior imaging. Heart size upper normal.? The mediastinum is not widened.? Right lung is clear.? There is some atelectasis-mild infiltrate in the left lung base.? No pleural effusions.? No pulmonary edema. IMPRESSION: Sternotomy wires.? Prosthetic aortic valve.? No pulmonary edema. Infiltrate left lung base.? No pulmonary edema. Labs Result diagrams: 03/24/21 16:11 03/24/21 16:11 Labs: Laboratory Results - last 24 hr 03/24/21 03/24/21 03/24/21 16:11 16:11 16:11 WBC 3.47 L RBC 2.24 L Hgb 9.1 L Hct 26.5 L MCV 118.3 H MCH 40.6 H MCHC 34.3 RDW 12.3 Plt Count 443 H MPV 11.0 Immature Gran % 0.9 Neutrophils % 51.7 Lymphocytes % 32.9 Monocytes % 13.3 Eosinophils % 0.3 Basophils % 0.9 Nucleated RBC % 1 Absolute Neutrophils 1.79 Absolute Lymphocytes 1.14 L Absolute Monocytes 0.46 Absolute Eosinophils 0.01 Absolute Basophils 0.03 RBC Morphology See below Macrocytosis 2+ PT 10.1 INR 1.0 Sodium 132 L Potassium 4.4 Chloride 96 L Carbon Dioxide 23.6 Anion Gap 12.4 H BUN 15 Creatinine 1.1 H Estimated GFR/1.73 m2 47.32 Glucose 103 Calcium 8.6 Magnesium 2.1 Total Bilirubin 0.4 AST 27 ALT 22 Alkaline Phosphatase 68 Troponin I < 0.05 Total Protein 7.0 Albumin 4.3 Urine Color Urine Clarity Urine pH Ur Specific Easley Urine Protein Urine Ketones Urine Blood Urine Nitrite Urine Bilirubin Urine Urobilinogen Ur Leukocyte Esterase Urine RBC Urine WBC Ur Epithelial Cells Urine Crystals Urine Bacteria Urine Casts Urine Mucus Urine Other Ur Culture Indicated? Urine Glucose COVID-19 Source 03/24/21 03/24/21 16:20 18:03 WBC RBC Hgb Hct MCV MCH MCHC RDW Plt Count MPV Immature Gran % Neutrophils % Lymphocytes % Monocytes % Eosinophils % Basophils % Nucleated RBC % Absolute Neutrophils Absolute Lymphocytes Absolute Monocytes Absolute Eosinophils Absolute Basophils RBC Morphology Macrocytosis PT INR Sodium Potassium Chloride Carbon Dioxide Anion Gap BUN Creatinine Estimated GFR/1.73 m2 Glucose Calcium Magnesium Total Bilirubin AST ALT Alkaline Phosphatase Troponin I Total Protein Albumin Urine Color Yellow Urine Clarity Clear Urine pH 7.0 Ur Specific E[place] 1.020 Urine Protein Negative Urine Ketones Trace H Urine Blood Negative Urine Nitrite Negative Urine Bilirubin Negative Urine Urobilinogen 1.0 H Ur Leukocyte Esterase Small H Urine RBC 0-2 Urine WBC 3-5 Ur Epithelial Cells Many Urine Crystals Negative Urine Bacteria Moderate Urine Casts Negative Urine Mucus Negative Urine Other Ur Culture Indicated? No/sq. contamination Urine Glucose Negative COVID-19 Source Nasal/nares Last Vital Signs Pulse 70 03/24/21 18:16 Resp 14 03/24/21 18:16 BP 162/69 H 03/24/21 18:16 Pulse Ox 99 03/24/21 18:16 COVID-19 Screening Have you, or household traveled for leisure in last 14 days?: No Had IN PERSON contact w/suspected or confirmed C-19 person: No
[2021-03-24 19:20] LABS: Troponin I < 0.05 ng/mL (<0.06)
[2021-03-24 20:03] LABS: TSH (W/Ref FT4) 4.17 uIU/mL (0.36-3.74)
[2021-03-24 20:21] LABS: FREE T4 1.22 ng/dL (0.76-1.46)
[2021-03-24 20:53] LABS: COVID-19 PCR Negative (Negative)
[2021-03-24] MEDS: traZODone 50 MG TAB PO (21:17)
[2021-03-24] MEDS: Aspirin E.C. 81 MG TABEC PO (21:17)
[2021-03-24] MEDS: Normal Saline Flush 10 ML SYR IVP (21:17)
[2021-03-24] MEDS: Mirtazapine 15 MG TAB PO (21:17)
[2021-03-24] MEDS: Docusate Sodium 100 MG CAP PO (21:17)
[2021-03-24] MEDS: Clopidogrel 75 MG TAB PO (22:02)
[2021-03-24] MEDS: Hydroxyurea 500 MG CAP 1000 MG PO (22:03)
[2021-03-25 00:02] VITALS: BP 164/68; PULSE 62; RESP 17; TEMP 36.3; O2SAT 91
[2021-03-25 03:53] VITALS: BP 129/69; PULSE 66; RESP 18; TEMP 36.6; O2SAT 98
[2021-03-25] MEDS: Levothyroxine 100 MCG TAB PO (06:19)
[2021-03-25 07:06] LABS: Abs Immature Grans 0.02 10^3/uL (0.0-0.06); Absolute Basophil Count 0.02 10^3/uL (0.0-0.2); Absolute Eosinophil Count 0.03 10^3/uL (0.0-0.7); Absolute Lymphocyte Count 1.07 10^3/uL (1.2-3.4); Absolute Monocyte Count 0.38 10^3/uL (0.1-0.8); Absolute Neutrophil Count 1.28 10^3/uL (1.2-6.7); Basophils % 0.7; Eosinophils % 1.1; HCT 23.9 % (36.0-46.0); HGB 8.5 g/dL (11.2-15.7); Immature Grans % 0.7; Lymphocytes % 38.2; MCH 41.9 pg (27.0-33.0); MCHC 35.6 % (32.0-36.0); MCV 117.7 fL (80-95); MPV 10.9 fL (8.0-11.0); Monocytes % 13.6; Neutrophils % 45.7; Nucleated RBC 0 %; Platelet Count 356 10^3/uL (130-400); RBC 2.03 10^6/uL (3.93-5.22); RDW 11.9 % (11.7-14.6); RDW-SD 51.7 fL
[2021-03-25 07:24] LABS: ALT 19 U/L (14-59); AST 23 U/L (15-37); Albumin 3.7 g/dL (3.4-5.0); Alkaline Phosphatase 61 U/L (46-116); Anion Gap 6.7 mmol/L (3-11); BUN 13 mg/dL (7-18); Bilirubin, Total 0.4 mg/dL (0.2-1.0); CO2 27.3 mmol/L (21.0-32.0); CREATININE 0.9 mg/dL (0.55-1.02); Calcium 8.5 mg/dL (8.5-10.1); Chloride 98 mmol/L (98-107); Estimated GFR 59.65 (mL/min/1.73m2); Glucose 91 mg/dL (74-106); Potassium 4.3 mmol/L (3.5-5.1); Sodium 132 mmol/L (136-145); Total Protein 6.2 g/dL (6.4-8.2)
[2021-03-25 07:40] VITALS: PULSE 70
--- NOTE | 2021-03-25 08:00 | DI.US_ITS ---
Exam(s) US CAROTID EXAM: US CAROTID CLINICAL HISTORY: Right cerebral hemispheric TIA. TECHNIQUE: Ultrasound carotids performed using grayscale, color-flow, and spectral Doppler imaging. COMPARISON: US US ECHOCARDIOGRAM from 03/25/2021 FINDINGS: RIGHT-SIDE: There is intimal thickening noted in the distal right common carotid artery. There is significant moderate plaque evident at the level the carotid bulb and proximal right ICA. S ignificant elevated velocities demonstrated in the distal right ICA in the neck, indicating stenosis in the proximal right ICA of 50-69 percent. Flow in the right vertebral artery is antegrade LEFT SIDE: There is significant heavily calcified plaque in the proximal and mid left common carotid artery and significant plaque is also seen at the level of the carotid bulb and left internal carotid artery. Recorded velocities, however, indicates stenosis less than 50 percent. Flow in left vertebral artery is demonstrated to be antegrade. Measurements: R Bulb: 64.9cm/s PS / 16.1cm/s ED R CCA: 68.1cm/s PS / 16.1cm/s ED R ECA: 81.6cm/s PS / 7.7cm/s ED R ICA Prox: 68.1cm/s PS /18cm/s ED R ICA Mid: 86.1cm/s PS / 28.9cm/s ED R ICA Distal: 171.9cm/s PS /45.45cm/s ED R Vert: 58.3cm/s PS / 15.7cm/s ED R SVR: 2.3 R DVR: 3.28 L Bulb: 91.6cm/s PS /24.1cm/s ED L CCA: 101.8cm/s PS / 22.2cm/s ED L ECA: 141.6cm/s PS /23.1cm/s ED L ICA Prox:77.7cm/s PS / 18.5cm/s ED L ICA Mid: 92.5cm/sPS / 32.4cm/s ED L ICA Distal: 70.3cm/s PS / 25.9cm/s ED L Vert: 62.9cm/s PS / 24.1cm/s ED L SVR: 0.91 L DVR: 1.46 IMPRESSION: Difficult findings bilaterally with both noncalcified and calcified plaque bilaterally in the common carotid arteries as well as is at the carotid bulbs and proximal internal carotid arteries as well as in the left external carotid artery. There is approximately 50-69% stenosis in the proximal right I CA and although there is prominent plaque on the left side, velocities recorded on the left side suresh woodrow stenosis of less than 50%. Antegrade flow is demonstrated in both vertebral arteries. Criteria for Carotid Stenosis: Normal: ICA PSV <125 cm/s no plaque or intimal thickening is visible. <50% stenosis: ICA PSV <125 cm/s and plaque or intimal thickening is visible. 50-69% stenosis: ICA PSV is 125-250 cm/s and plaque is visible. >70% stenosis to near occlusion: ICA PSV >250 cm/s with visible plaque and luminal narrowing. DATA REPOSITORY:
[2021-03-25 08:04] VITALS: PULSE 66
--- NOTE | 2021-03-25 08:45 | DI.MRI_ITS ---
Exam(s) MR BRAIN WO EXAM: MR BRAIN WO CLINICAL HISTORY: Right cerebral hemispheric TIA TECHNIQUE: Multiplanar multisequence MRI of the brain was performed. COMPARISON: Prior CT scan 03/24/2021 was reviewed. FINDINGS: CEREBRAL PARENCHYMA: There is no evidence of intracranial hemorrhage, mass effect, or shift of midline structures. There are no extra-axial fluid collections. Ventricles are not enlarged or shifted. There is no abnormal signal in the cerebellar hemispheres. Small foci of signal abnormality both renate es of the mukund noted. No abnormal signal in the thalami but there is abundant bilateral periventricu lar white matter signal abnormality, not associated with hemorrhage or surrounding edema nor abnormal signal on diffusion imaging. There is no significant focal signal abnormality evident on diffusion imaging to suggest acute ischem ic event. PITUITARY GLAND: No mass nor parasellar abnormality. No obvious abnormality in the cavernous sinuses. FLOW VOIDS: The expected flow void are noted. No evidence of obvious aneurysm nor obvious vascular ma lformation. PARANASAL SINUSES: The visualized paranasal sinuses appear unremarkable. No obvious finding ORBITS: No obvious findings. IMPRESSION: There is abundant bilateral periventricular white matter signal abnormality consistent with probable chronic small-vessel white matter ischemic change. There is no evidence of hemorrhage or surrounding edema nor abnormal signal on DWI imaging to suggest acute ischemic event. Similar findings also see n in the mukund. The amount of involutional change is consistent with this patient's advanced age. DATA REPOSITORY:
--- NOTE | 2021-03-25 08:47 | DI.RAD_ITS ---
Exam(s) XR CHEST 2V PA LATERAL EXAM: XR CHEST 2V PA LATERAL CLINICAL HISTORY: Questionable infiltrate left lung base. TECHNIQUE: 2D digital imaging was performed. COMPARISON: CR,XR XR CHEST 2V PA LATERAL from 08/13/2020 CR,XR XR CHEST 1V IN DI DEPT from 03/24/2021 FINDINGS: Heart size is normal. Sternotomy wires again noted as well as prosthetic aortic valve. The mediasti num is not widened. Right lung is clear. Atelectasis-mild infiltrate in the left lung base is unchanged from yesterday. There are no obvious pleural effusions. There is no evidence of pulmonary edema. There is no pneumothorax. IMPRESSION: Persistent mild infiltrate left lung base. No pleural effusion. No radiographic change from yesterd ay. No other areas of infiltrate. Prosthetic aortic valve. Sternotomy. No pulmonary edema. Heart size normal. DATA REPOSITORY: RADIATION DOSE DELIVERED:
[2021-03-25] MEDS: amLODIPine 2.5 MG TAB PO (09:33)
[2021-03-25] MEDS: Aspirin E.C. 81 MG TABEC PO (09:33)
[2021-03-25] MEDS: Clopidogrel 75 MG TAB PO (09:33)
--- NOTE | 2021-03-25 10:25 | PDOC.CMIN ---
- If Service Date Differs Date of service: 03/25/21 Time of Service: 10:25 Care Management Initial Assess REASON FOR HOSPITALIZATION:: TIA PAST MEDICAL HISTORY/PAST SURGICAL HISTORY:: Medical History. Chronic diastolic heart failure (05/18/17). Dementia, Alzheimer's, with behavior disturbance. Essential hypertension (09/12/13). History of left heart catheterization. History of tobacco use. Hyperlipidemia (01/03/13). Hyponatremia (02/13/18). Hypothyroidism (acquired) (01/03/13). Palliative care patient. Primary thrombocytosis (10/11/17). Restless leg syndrome. Rheumatic aortic stenosis. Surgical History. Appendectomy (10/19/1952). History of aortic valve replacement. LEFT HEART CARDIAC CATH. Valve Replacement. AORTIC PREVIOUS FUNCTIONAL STATUS/SOCIAL/FAMILY SUPPORTS:: Shayla lives with her daughter in [place], [place] in her own home. She is she has four children all of them live local. Shayla is able to complete her ADL's her daughter reports that her short term memory comes and goes. CURRENT FUNCTIONAL STATUS:: Shayla was sitting up in her chair when CM met with her. She reported that she was feeling good today and was hoping to return home. She stated that her daughter, Kathie, lives with her and assists her with ADL's. Per staff, her daughter will pick her up around 2:30. She is happy to be going home. ADVANCE DIRECTIVES:: [employer] on file, Kathie listed as agent. Has patient been provided with info about the portal/API?: Yes Did the patient sign up for the portal?: No CODE STATUS:: DNR/DNI INSURANCE COVERAGE / FINANCIAL ISSUES:: [facility]/ [facility] CURRENT HOME/COMMUNITY SERVICES/EQUIPMENT:: No current services her daughter cares for her at home. PRIMARY CARE PHYSICIAN:: Heaven Morin POTENTIAL DISCHARGE NEEDS:: Evaluations for further needs, follow up appointments. PATIENT/FAMILY EDUCATION NEEDS:: Discharge education, limiitations and follow up plan of care. ANTICIPATED BARRIERS TO DISCHARGE:: None identified at this time. TRANSPORTATION:: Via private vehicle by family. PLAN:: Anticipate Shayla will return home when medically cleared. She will be driven home via private vehicle when ready. She will follow up with her PCP and discharge plan of care. CM will continue to follow.
[2021-03-25] MEDS: Hydroxyurea 500 MG CAP 1500 MG PO (10:34)
--- NOTE | 2021-03-25 11:28 | DSE_ITS ---
Date of service: 03/25/21 Time of Service: 11:29 DS: Diagnosis Discharge Diagnosis (1) TIA (transient ischemic attack): Status: Acute (2) HTN (hypertension): Status: Chronic (3) Dementia: Status: Chronic (4) Primary thrombocytosis: Status: Chronic (5) Hypothyroidism: Status: Chronic (6) Chronic hyponatremia: Status: Chronic Discharge Plan Disposition Patient Disposition: HOME Condition: Stable Discharge Details Reason For Visit: TIA Admit Date/Time: 03/24/21 18:45 Admit Provider: Kalyan Ridley Attending Provider: Kalyan Ridley Primary Care Provider: Heaven Morin Hospital Course Hospital Course: This is an 85-year-old lady with sudden onset of left sided numbness and paresis mostly including the face and upper extremity.? She has had similar episodes in the past the same region by history.? She is only on baby aspirin has home.? She was given a full dose aspirin with Plavix 75 mg p.o. which will be continued along with a baby aspirin daily.? She also was placed on atorvastatin high dose.? Further imaging will include MRI of the brain, carotid Doppler studies and echocardiogram unremarkable.?Normal neurological checks and cardiac monitoring which has revealed only sinus rhythm throughout the night.? Permissive hypertension will be allowed during this hospital stay.? Amlodipine will be continued but lisinopril will be held.? There was a question of a left lower lobe infiltrate on chest x-ray but respiratory status is stable with no fever, cough or oxygen requirements. discharge discussed with Dr Willson [place] Meds and New Rx's Prescriptions: New clopidogrel [Plavix] 75 mg Tablet 75 mg PO DAILY Qty: 30 RF: 0 atorvastatin 40 mg Tablet 80 mg PO QPM Qty: 30 RF: 0 Continued haloperidol 2 mg tablet 2 - 4 mg PO TID PRN (Reason: agitation) Qty: 20 RF: 0 diclofenac sodium [Voltaren] 1 % gel 2 g topical QID PRN (Reason: pain) Qty: 100 RF: 0 aspirin [Aspir-81] 81 mg tablet,delayed release (DR/EC) 81 mg PO BID RF: 0 hydroxyurea [Hydrea] 500 mg capsule See Rx Instructions PO .COMPLEX RF: 0 docusate sodium 100 mg tablet 100 mg PO DAILY PRN (Reason: constipation) RF: 0 quetiapine 25 mg tablet 25 mg PO QID PRN (Reason: anxiety) RF: 0 Jakafi 10 mg tablet 10 mg PO BID RF: 0 cholecalciferol (vitamin D3) 1,000 UNIT tablet 1,000 unit PO .DAILY @ 1200 RF: 0 I-Caps 1 EACH capsule 1 ea PO .DAILY @ 1200 RF: 0 triamcinolone acetonide 15 GM cream 15 % Topical BID Qty: 30 RF: 3 polyethylene glycol 3350 [Miralax] 17 gram/dose powder 17 g PO DAILY PRN (Reason: constipation) Qty: 238 RF: 2 amlodipine 2.5 mg tablet 2.5 mg PO DAILY Qty: 90 RF: 4 lorazepam 0.5 mg tablet 0.25 - 0.5 mg PO Q6H PRN PRN (Reason: agitation) Qty: 10 RF: 0 levothyroxine 100 mcg tablet 100 mcg PO DAILY Qty: 90 RF: 2 mirtazapine 7.5 mg tablet 7.5 mg PO QHS PRN (Reason: insomnia) Qty: 30 RF: 0 mirtazapine 15 mg tablet 15 mg PO QHS Qty: 30 RF: 6 trazodone 50 mg tablet 25 - 50 mg PO QHS Qty: 60 RF: 3 meclizine 12.5 MG tablet 12.5 mg PO Q6H PRN (Reason: dizziness) Qty: 20 RF: 1 Discontinued lisinopril 10 mg tablet 10 mg PO DAILY Qty: 90 RF: 4 Discharge Instructions Instructions: Transient Ischemic Attack (DC) Additional Instructions: your MRI of the brain should no acute stroke. you have been started on 2 medications for stroke prevention. take all medications as prescribed. wear your heart monitor as directed. Referrals: Heaven Morin NP [Primary Care Provider] - Activity:: Activity as Tolerated Equipment/Supplies:: No Equipment Needed Diet:: As Tolerated Discharge Orders Discharge Orders: Discharge Order (Routine); Ordered 03/25/21 Ordered By: Aga Seals Other Ambulatory Orders: Cardiac Event Recorder (Routine) Timeframe: [id number] Facility: [facility] - Location: Respiratory Therapy Ordered By: Aga Seals DS: Summary Time Spent with Patient providing and/or coordinating discharge services: Less than 30 minutes Status at Discharge Functional status at discharge: independent ambulation Overall status at discharge: patient is back to baseline Mental Status: mental status grossly normal Speech and Movement: speech and movement normal Mood: congruent mood Affect: normal affect Exam Psych Mental Status: mental status grossly normal Speech and Movement: speech and movement normal Mood: congruent mood Affect: normal affect DS: Data Vitals/I&O Vitals and I&O: Vital Signs Temperature 36.6 C 03/25/21 03:53 Temperature Source Tympanic 03/25/21 03:53 Pulse 66 03/25/21 08:04 Pulse Rhythm Regular 03/25/21 03:40 Pulse 71 03/24/21 18:16 Respiratory Rate 18 03/25/21 03:53 Respiratory Effort Non-Labored 03/25/21 03:40 Respiratory Depth Normal 03/25/21 03:40 Respiratory Pattern Normal 03/25/21 03:40 Blood Pressure 129/69 03/25/21 03:53 Blood Pressure Mean 91 03/24/21 18:16 Pulse Oximetry 98 03/25/21 03:53 Oxygen Delivery Method Room Air 03/25/21 03:53 Oxygen Flow Rate 0 03/25/21 03:53 Pain Level 0 03/25/21 03:53 Intake & Output 03/24/21 03/24/21 03/25/21 11:59 23:59 11:59 Output Total 100 / 100 Balance -100 / -100 Weight 73.936 kg 73.8 kg Output: Urine 100 / 100 Other: Urine Color Yellow Urine Appearance Clear Urine Odor Normal Voiding Methods Toilet Data Completed and Pending Labs on day of discharge: Labs from last 24 hours 03/25/21 03/25/21 03/24/21 06:24 06:24 19:00 WBC 2.80 L RBC 2.03 L Hgb 8.5 L Hct 23.9 L MCV 117.7 H MCH 41.9 H MCHC 35.6 RDW 11.9 Plt Count 356 MPV 10.9 Immature Gran % 0.7 Neutrophils % 45.7 Lymphocytes % 38.2 Monocytes % 13.6 Eosinophils % 1.1 Basophils % 0.7 Nucleated RBC % 0 Absolute Neutrophils 1.28 Absolute Lymphocytes 1.07 L Absolute Monocytes 0.38 Absolute Eosinophils 0.03 Absolute Basophils 0.02 RBC Morphology Macrocytosis PT INR Sodium 132 L Potassium 4.3 Chloride 98 Carbon Dioxide 27.3 Anion Gap 6.7 BUN 13 Creatinine 0.9 Estimated GFR/1.73 m2 59.65 Glucose 91 Calcium 8.5 Magnesium Total Bilirubin 0.4 AST 23 ALT 19 Alkaline Phosphatase 61 Troponin I Total Protein 6.2 L Albumin 3.7 TSH 4.17 H Free T4 1.22 Urine Color Urine Clarity Urine pH Ur Specific [place] Urine Protein Urine Ketones Urine Blood Urine Nitrite Urine Bilirubin Urine Urobilinogen Ur Leukocyte Esterase Urine RBC Urine WBC Ur Epithelial Cells Urine Crystals Urine Bacteria Urine Casts Urine Mucus Urine Other Ur Culture Indicated? Urine Glucose COVID-19 Source SARS-CoV-2 (PCR) 03/24/21 03/24/21 03/24/21 19:00 18:52 18:03 WBC RBC Hgb Hct MCV MCH MCHC RDW Plt Count MPV Immature Gran % Neutrophils % Lymphocytes % Monocytes % Eosinophils % Basophils % Nucleated RBC % Absolute Neutrophils Absolute Lymphocytes Absolute Monocytes Absolute Eosinophils Absolute Basophils RBC Morphology Macrocytosis PT Cancelled INR Cancelled Sodium Potassium Chloride Carbon Dioxide Anion Gap BUN Creatinine Estimated GFR/1.73 m2 Glucose Calcium Magnesium Total Bilirubin AST ALT Alkaline Phosphatase Troponin I < 0.05 Total Protein Albumin TSH Free T4 Urine Color Urine Clarity Urine pH Ur Specific [place] Urine Protein Urine Ketones Urine Blood Urine Nitrite Urine Bilirubin Urine Urobilinogen Ur Leukocyte Esterase Urine RBC Urine WBC Ur Epithelial Cells Urine Crystals Urine Bacteria Urine Casts Urine Mucus Urine Other Ur Culture Indicated? Urine Glucose COVID-19 Source Nasal/nares SARS-CoV-2 (PCR) Negative 03/24/21 03/24/21 03/24/21 16:20 16:11 16:11 WBC 3.47 L RBC 2.24 L Hgb 9.1 L Hct 26.5 L MCV 118.3 H MCH 40.6 H MCHC 34.3 RDW 12.3 Plt Count 443 H MPV 11.0 Immature Gran % 0.9 Neutrophils % 51.7 Lymphocytes % 32.9 Monocytes % 13.3 Eosinophils % 0.3 Basophils % 0.9 Nucleated RBC % 1 Absolute Neutrophils 1.79 Absolute Lymphocytes 1.14 L Absolute Monocytes 0.46 Absolute Eosinophils 0.01 Absolute Basophils 0.03 RBC Morphology See below Macrocytosis 2+ PT 10.1 INR 1.0 Sodium Potassium Chloride Carbon Dioxide Anion Gap BUN Creatinine Estimated GFR/1.73 m2 Glucose Calcium Magnesium Total Bilirubin AST ALT Alkaline Phosphatase Troponin I Total Protein Albumin TSH Free T4 Urine Color Yellow Urine Clarity Clear Urine pH 7.0 Ur Specific [place] 1.020 Urine Protein Negative Urine Ketones Trace H Urine Blood Negative Urine Nitrite Negative Urine Bilirubin Negative Urine Urobilinogen 1.0 H Ur Leukocyte Esterase Small H Urine RBC 0-2 Urine WBC 3-5 Ur Epithelial Cells Many Urine Crystals Negative Urine Bacteria Moderate Urine Casts Negative Urine Mucus Negative Urine Other Ur Culture Indicated? No/sq. contamination Urine Glucose Negative COVID-19 Source SARS-CoV-2 (PCR) 03/24/21 16:11 WBC RBC Hgb Hct MCV MCH MCHC RDW Plt Count MPV Immature Gran % Neutrophils % Lymphocytes % Monocytes % Eosinophils % Basophils % Nucleated RBC % Absolute Neutrophils Absolute Lymphocytes Absolute Monocytes Absolute Eosinophils Absolute Basophils RBC Morphology Macrocytosis PT INR Sodium 132 L Potassium 4.4 Chloride 96 L Carbon Dioxide 23.6 Anion Gap 12.4 H BUN 15 Creatinine 1.1 H Estimated GFR/1.73 m2 47.32 Glucose 103 Calcium 8.6 Magnesium 2.1 Total Bilirubin 0.4 AST 27 ALT 22 Alkaline Phosphatase 68 Troponin I < 0.05 Total Protein 7.0 Albumin 4.3 TSH Free T4 Urine Color Urine Clarity Urine pH Ur Specific [place] Urine Protein Urine Ketones Urine Blood Urine Nitrite Urine Bilirubin Urine Urobilinogen Ur Leukocyte Esterase Urine RBC Urine WBC Ur Epithelial Cells Urine Crystals Urine Bacteria Urine Casts Urine Mucus Urine Other Ur Culture Indicated? Urine Glucose COVID-19 Source SARS-CoV-2 (PCR) [facility] Medical History Chronic diastolic heart failure (05/18/17) Dementia, Alzheimer's, with behavior disturbance Essential hypertension (09/12/13) History of left heart catheterization History of tobacco use Hyperlipidemia (01/03/13) Hyponatremia (02/13/18) Hypothyroidism (acquired) (01/03/13) Palliative care patient Primary thrombocytosis (10/11/17) Restless leg syndrome Rheumatic aortic stenosis Surgical History Appendectomy (10/19/1952) History of aortic valve replacement LEFT HEART CARDIAC CATH Valve Replacement AORTIC Social History Smoking/Tobacco Use Status: Former Tobacco Use Smoking risk assessment performed?: Yes Alcohol Intake: never Drug use: Never Household members: children Housing: house Number of Children: 4 number of grandchildren: 8 current occupation: retired Pets and animals: No What is your relationship status?: Panel score (0-1 are the most socially isolated patients): 0 What type of physical activity do you participate in: none Seatbelt use: always Do you feel safe at home: Yes Do you feel safe in your relationship?: Yes
[2021-03-25 11:51] VITALS: BP 153/84; PULSE 72; RESP 14; TEMP 36.4; O2SAT 99
--- NOTE | 2021-03-25 15:22 | PDOC.CMDIS ---
- If Service Date Differs Date of service: 03/25/21 Time of Service: 15:22 LACE Index Scoring Tool - Questions: Length of Stay (in days): 1 Acuity (Admit via E.D.?): Yes Comorbidities: Dementia E.D. Visits: 3 - Answers: Total Score: 10 Risk of Readmission: High Risk Care Management Discharge Reason for Hospitalization: TIA Discharge Plan: Shayla will return home with no additional services. Her daughter, Kathie will drive him home via private vehicle when ready. She will follow up with her PCP and discharge plan of care. She is happy to be going home. Patient/Family Education Needs: Review discharge instructions regarding activity and medications, discussion of self care needs and goals of care.
--- NOTE | 2021-04-24 15:25 | CER_ITS ---
Date of service: 04/24/21 Time of Service: 15:25 Cardiac Event Recorder Referring Provider:: Kalyan Bell Indications:: TIA Cardiac Event Note: This is a 30-day assistant gm of content & delivery ordered because of transient cerebral ischemia Rhythm throughout was sinus with an average heart rate of 73. Minimum was 58, maximum 109 There were no significant ventricular dysrhythmias There were rare atrial premature beats. There were several runs of paroxysmal supraventricular tachycardia, the longest of which lasted 6.4 seconds There was no atrial fibrillation. There was no high-grade AV block. There were no pauses greater than 3 seconds There were no apparent patient symptoms
== END 2021-03-25 14:32 | disposition home or self-care (01) ==
LOC: ER 19:00 → MS 19:34
PROVIDERS: Admitting Provider Family Medicine; Emergency Provider Physician Assistant; Visit Provider Family Medicine
DX: G45.9 Transient cerebral ischemic attack, unspecified (principal); R20.0 Anesthesia of skin; G83.24 Monoplegia of upper limb affecting left nondominant side; D47.3 Essential (hemorrhagic) thrombocythemia; E87.1 Hypo-osmolality and hyponatremia; E03.9 Hypothyroidism, unspecified; Z66 Do not resuscitate; I50.32 Chronic diastolic (congestive) heart failure; I11.0 Hypertensive heart disease with heart failure; G30.9 Alzheimer's disease, unspecified; F02.81 Dementia in other diseases classified elsewhere, unspecified severity, with behavioral disturbance; Z87.891 Personal history of nicotine dependence; E78.5 Hyperlipidemia, unspecified; G25.81 Restless legs syndrome; I06.0 Rheumatic aortic stenosis
CPT/HCPCS: 36415; 80053; 87635; 93005; 99285; 70450; 70551; 71045; 71046; 81003; 81015; 83735; 84439; 84443; 84484; 85025; 85610; 93010; 93306; 93880; 99217; 99220; G0378; J9999

== ENCOUNTER 2021-04-22 02:17 | Outpatient (CLI) | payer MEDICARE, MEDICAID, SELFPAY ==
[2021-04-22 09:59] LABS: Abs Immature Grans 0.02 10^3/uL (0.0-0.06); Absolute Basophil Count 0.03 10^3/uL (0.0-0.2); Absolute Eosinophil Count 0.04 10^3/uL (0.0-0.7); Absolute Lymphocyte Count 1.49 10^3/uL (1.2-3.4); Absolute Monocyte Count 0.41 10^3/uL (0.1-0.8); Absolute Neutrophil Count 2.18 10^3/uL (1.2-6.7); Basophils % 0.7; HCT 27.6 % (36.0-46.0); HGB 9.5 g/dL (11.2-15.7); Immature Grans % 0.5; Lymphocytes % 35.7; MCH 40.3 pg (27.0-33.0); MCHC 34.4 % (32.0-36.0); MCV 116.9 fL (80-95); MPV 10.5 fL (8.0-11.0); Monocytes % 9.8; Neutrophils % 52.3; Nucleated RBC 0 %; Platelet Count 419 10^3/uL (130-400); RBC 2.36 10^6/uL (3.93-5.22); RDW 13.1 % (11.7-14.6); RDW-SD 55.6 fL; WBC 4.17 10^3/uL (4.4-10.8)
[2021-04-22 10:21] LABS: ALT 24 U/L (14-59); AST 30 U/L (15-37); Albumin 4.2 g/dL (3.4-5.0); Alkaline Phosphatase 76 U/L (46-116); Anion Gap 12.3 mmol/L (3-11); BUN 16 mg/dL (7-18); Bilirubin, Total 0.4 mg/dL (0.2-1.0); CO2 23.7 mmol/L (21.0-32.0); CREATININE 0.9 mg/dL (0.55-1.02); Calcium 8.9 mg/dL (8.5-10.1); Chloride 97 mmol/L (98-107); Estimated GFR 59.65 (mL/min/1.73m2); Glucose 102 mg/dL (74-106); Potassium 4.7 mmol/L (3.5-5.1); Sodium 133 mmol/L (136-145)
== END 2021-04-22 02:18 | disposition home or self-care (01) ==
LOC: LBO 02:17
PROVIDERS: Visit Provider Internal Medicine Hematology & Oncology
DX: D47.1 Chronic myeloproliferative disease (principal)
CPT/HCPCS: 36415; 80053; 85025

== ENCOUNTER 2021-04-24 15:25 | Outpatient (CLI) | payer MEDICARE, MEDICAID, SELFPAY | END 2021-04-24 15:26 | LOC: CARDO 06-19 15:58 | PROVIDERS: Referring Provider Family Medicine; Visit Provider Internal Medicine Cardiovascular Disease | DX: G45.9 Transient cerebral ischemic attack, unspecified (principal); I47.1 Supraventricular tachycardia | CPT/HCPCS: 93272 ==

== ENCOUNTER 2021-08-06 03:17 | Outpatient (CLI) | payer MEDICARE, MEDICAID, SELFPAY ==
[2021-08-06 12:06] LABS: Absolute Basophil Count 0.08 10^3/uL (0.0-0.2); Absolute Eosinophil Count 0.13 10^3/uL (0.0-0.7); Absolute Lymphocyte Count 1.03 10^3/uL (1.2-3.4); Absolute Monocyte Count 0.95 10^3/uL (0.1-0.8); Absolute Neutrophil Count 6.27 10^3/uL (1.2-6.7); Basophils % 0.9; Eosinophils % 1.5; HCT 27.3 % (36.0-46.0); Immature Grans % 1.2; MCH 35.9 pg (27.0-33.0); MCV 108.8 fL (80-95); MPV 10.7 fL (8.0-11.0); Monocytes % 11.1; Nucleated RBC 1 %; RBC 2.51 10^6/uL (3.93-5.22); WBC 8.56 10^3/uL (4.4-10.8)
[2021-08-06 12:18] LABS: ALT 26 U/L (14-59); Albumin 4.1 g/dL (3.4-5.0); Alkaline Phosphatase 84 U/L (46-116); Anion Gap 7.3 mmol/L (3-11); BUN 10 mg/dL (7-18); Bilirubin, Total 0.7 mg/dL (0.2-1.0); CO2 24.7 mmol/L (21.0-32.0); CREATININE 1.1 mg/dL (0.55-1.02); Calcium 8.6 mg/dL (8.5-10.1); Chloride 97 mmol/L (98-107); Estimated GFR 47.32 (mL/min/1.73m2); Glucose 151 mg/dL (74-106); Potassium 4.7 mmol/L (3.5-5.1); Sodium 129 mmol/L (136-145); Total Protein 6.8 g/dL (6.4-8.2)
[2021-08-06 12:20] LABS: Diff Comment Diff Reviewed; Macrocytosis 2+; Neutrophils % 73.3; Platelet Count 509 10^3/uL (130-400); Polychromasia Present
[2021-08-06 12:33] LABS: AST 43 U/L (15-37)
== END 2021-08-06 03:18 | disposition home or self-care (01) ==
LOC: LBO 03:17
PROVIDERS: Visit Provider Internal Medicine Hematology & Oncology
DX: D47.1 Chronic myeloproliferative disease (principal)
CPT/HCPCS: 36415; 80053; 81003; 85025

== ENCOUNTER 2021-08-24 13:18 | Outpatient (REF) | payer MEDICARE, MEDICAID, SELFPAY ==
[2021-08-24 16:27] LABS: Bilirubin Negative (Negative); Blood Negative (Negative); Clarity Clear (Clear); Glucose Negative (Negative); Ketones Negative (Negative); Leukocyte Esterase Negative (Negative); Nitrite Negative (Negative)
== END 2021-08-24 13:19 | disposition home or self-care (01) ==
LOC: LBN 13:18
PROVIDERS: Visit Provider Nurse Practitioner
DX: R44.3 Hallucinations, unspecified (principal)
CPT/HCPCS: 81003